=== PATIENT | female | born 1940 | race Caucasian/White ===

== ENCOUNTER 2017-01-22 21:13 | Emergency (ER) | payer OTHER, MEDICARE ==
[~2017-01-22] VITALS: Ht 165.1 cm; Wt 68.7 kg
[~2017-01-22 21:13] MED LIST: ASPEC81 PO; LEVO75TA PO; METO25TA56 PO; PARO30TA5 PO
[2017-01-22 21:20] VITALS: TEMP 36.7; Ht 165.1 cm; Wt 68.7 kg
[2017-01-22] MEDS ORDERED: ACETAMINOPHEN 500 MG TAB PO STA (21:53)
[2017-01-22] MEDS ORDERED: ASPI81TA28 PO (22:09)
[2017-01-22] MEDS ORDERED: ATEN50TA8 PO (22:13)
--- NOTE | 2017-01-22 22:41 | EMERGENCY ROOM VISIT NOTE ---
ED Visit Note First contact with patient: 22:41 This Patient was discussed with the physician pharmacy innovation assistant, NICA Clements. The pertinent historical and physical exam findings were confirmed. I agree with the studies ordered and with the interpretations of these studies. I agree with the disposition and care plan.
--- NOTE | 2017-01-22 22:49 | DIAGNOSTIC IMAGING REPORT ---
LEFT FOREARM 2 VIEWS ROUTINE CLINICAL HISTORY: Fall. COMPARISON: None FINDINGS: There is a mildly displaced distal left radial fracture with intra-articular extension. There is an age indeterminate avulsion fracture of the ulnar styloid. Alignment of the left elbow is anatomic. Evaluation of the left elbow is suboptimal on this exam. IMPRESSION: 1. Acute mildly displaced distal left radial fracture with intra-articular extension and mild dorsal tilt of the distal component. 2. Age indeterminate avulsion fracture of the ulnar styloid. Electronically signed by: Betito Rodriges M.D. 01/22/2017 10:48 PM Dictated Date/Time: 01/22/2017 10:45 PM
--- NOTE | 2017-01-22 22:50 | DIAGNOSTIC IMAGING REPORT ---
LEFT WRIST MIN 3 VIEWS ROUTINE CLINICAL HISTORY: Fall. COMPARISON: None FINDINGS: There is an acute mildly displaced distal left radial fracture with intra-articular extension. There is dorsal tilt of the distal component. There is an age indeterminate ulnar styloid avulsion fracture. 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 IMPRESSION: 1. Mildly displaced distal left radial fracture with intra-articular extension and dorsal tilt of the distal component. 2. Age indeterminate avulsion fracture of the ulnar styloid. Electronically signed by: Betito Rodriges M.D. 01/22/2017 10:49 PM Dictated Date/Time: 01/22/2017 10:48 PM
--- NOTE | 2017-01-22 23:04 | DIAGNOSTIC IMAGING REPORT ---
CT OF THE CERVICAL SPINE WITHOUT CONTRAST CLINICAL HISTORY: Fall. COMPARISON STUDY: No previous studies for comparison. TECHNIQUE: Helical axial images of the cervical spine were obtained without IV contrast. Sagittal and coronal reconstructions were viewed. FINDINGS: Craniocervical junction is intact. There is no acute fracture within the cervical spine. Moderate multilevel degenerative changes are present. There is no prevertebral edema. No pneumothorax is shown within visualized portions of the lung apices. IMPRESSION: No acute cervical spine fracture or subluxation. Electronically signed by: Betito Rodriges M.D. 01/22/2017 11:02 PM Dictated Date/Time: 01/22/2017 10:58 PM
--- NOTE | 2017-01-22 23:05 | DIAGNOSTIC IMAGING REPORT ---
CT OF THE HEAD WITHOUT CONTRAST CLINICAL HISTORY: Fall. COMPARISON STUDY: Head CT September 03, 2015. CT DOSE: 1008.19 mGy.cm TECHNIQUE: Helical axial images of the head were obtained without IV contrast. Automated exposure control was utilized for the study. FINDINGS: No acute intracranial hemorrhage, midline shift or mass effect is present. Ventricular system is stable. Basilar cisterns are patent. There are no extra-axial collections. 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 There is no calvarial fracture. Visualized portions of the sinuses and mastoid air cells are clear. IMPRESSION: 1. No acute intracranial findings. 2. No calvarial fracture. Electronically signed by: Betito Rodriges M.D. 01/22/2017 11:04 PM Dictated Date/Time: 01/22/2017 10:53 PM
[2017-01-22 23:37] VITALS: BP 178/83; PULSE 54; O2SAT 99
--- NOTE | 2017-01-23 03:42 | EMERGENCY ROOM VISIT NOTE ---
History First contact with patient: 21:47 Chief Complaint: WRIST PAIN Stated Complaint: FELL, HURT L WRIST History of Present Illness The patient is a 76 year old female who presents to the Emergency Room with complaints of Left wrist pain who [place] Patient states she tripped and fell landed on her knee and wrist. She does not think she her head but does have dementia. Patient has broken his wrist before. Patient denies chest pain, dyspnea, abdominal pain, neck pain, back pain or any other medical complaints. She follows at Dr. Thibodeaux. History is also obtained from the daughter who states patient does have dementia and is unsure of what happened today. She was not there. Review of Systems See HPI for pertinent positives & negatives. A total of 10 systems reviewed and were otherwise negative. Past Medical/Surgical History Medical Problems: (1) Cognitive impairment (2) Paroxysmal SVT (supraventricular tachycardia) (3) Progressive dementia with uncertain etiology Surgical Problems: (1) H/O partial thyroidectomy Family History FH: cancer FH: diabetes mellitus FH: heart disease Social History Smoking Status: Never Smoker Alcohol Use: occasionally Drug Use: none Marital Status: Housing Status: lives with family Occupation Status: retired Current/Historical Medications Scheduled Aspirin (Aspirin Ec), 81 MG PO Q2D Atenolol (Tenormin), 25 MG PO DAILY Levothyroxine Sodium (Synthroid), 75 MCG PO DAILY Paroxetine (Paroxetine HCl), 15 MG PO DAILY Allergies Coded Allergies: Codeine (Verified Allergy, Unknown, GI SYMPTOMS, 10/24/15) Mercury (Verified Allergy, Unknown, HIVES, 10/24/15) Physical Exam Vital Signs Date Time Temp Pulse Resp B/P Pulse Ox O2 Delivery O2 Flow Rate FiO2 01/22/17 23:37 54 18 178/83 99 01/22/17 21:20 36.7 61 20 141/94 97 Room Air Pain Rating (0-10): 3.0 Physical Exam PHYSICAL EXAM: VITALS: Vitals are noted on the nurse's note and reviewed by myself. Vital signs stable. GENERAL: Pleasant female forgot for repeating herself, in no acute distress, nondiaphoretic, well-developed well-nourished. SKIN: The skin was without obvious lacerations or abrasions. Capillary reflex less than 2 seconds. HEAD: Normocephalic atraumatic. EARS: External auditory canals clear, EYES: Pupils equal round and reactive to light and accommodation. Conjunctivae without injection, sclerae without icterus. Extraocular movements intact. NOSE: Patent, turbinates without inflammation or discharge MOUTH: Mucous membranes moist. Pharynx without erythema or exudate. Uvula midline. Airway patent. Tongue does not deviate. NECK: Supple without nuchal rigidity. Cervical spine is nontender. Full range of motion of the neck without tenderness. No JVD. HEART: Regular rate and rhythm LUNGS: Clear to auscultation bilaterally without wheezes, rales or rhonchi. No dullness to percussion. No retractions or accessory muscle use. No chest wall tenderness. ABDOMEN: Positive bowel sounds x 4. Normal tympanic percussion. Soft, nontender, without masses or organomegaly. No guarding or rebound tenderness. MUSCULOSKELETAL: No tenderness of the thoracic or lumbar spine. Left wrist deformed and tender to palpation, Full range of motion without tenderness to palpation in all other extremities. Normal gait. Radial pulse +2 equal present bilaterally NEURO: Patient was alert and oriented to person place Normal sensation to light and sharp touch. Cerebellar function intact. Medical Decision & Procedures Medications Administered Medications (Trade) Dose Ordered Sig/Dillon Route Start Time Stop Time Status Last Admin Dose Admin Acetaminophen (Tylenol Tab) 1,000 mg NOW STAT PO 01/22/17 21:53 01/22/17 21:57 DC 01/22/17 22:22 1,000 MG Procedure Splinting Indication: Radial fracture Verbal consent obtained. Risks and benefits were explained with the usual customary discussion. The injured extremity was identified. The patient was prepped and measured for the placement of a volar ortho-glass splint. Splint applied in the standard fashion over a layer of webril and secured using an elastic bandage. Set into a position of function. Normal neurovascular status after placement verified by me. The patient tolerated the procedure well and the care of the splint was discussed with the patient/family. No complications. ED Course Prior records/ancillary studies reviewed. Triage Nursing notes reviewed. Additional history obtained from family The patient's history was concerning for traumatic injury Differential diagnosis: Etiologies such as fracture, dislocation, intra-abdominal, pneumothorax, intrathoracic , intracranial, neurologic, as well as other traumatic pathologies were entertained. Physical examination findings: As above. The patients vitals were stable. ER treatment provided: Tylenol, patient was splinted as above On reassessment the patient felt better. Vital signs were stable. Diagnostic interpretation by me: Imaging studies: Head and cervical CT and negative for intracranial bleed or fracture per radiology Wrist and forearm x-ray concerning for radial fracture This appears to be consistent with all with wrist fracture. Patient was splinted as above. They're advised follow-up with the orthopedist, Dr. Adams, in a few days or here in the ER sooner for severe pain, numbness, tingling, worsening signs or symptoms or as needed. No other injuries are noted. Patient was well-appearing. She does have dementia. She is fully examined and no other injuries were appreciated. She did not have acute abdomen on exam. By the evaluation outlined above emergent etiologies such as dislocation, intra-abdominal, pneumothorax, pulmonary contusion, hemothorax, intracranial, neurologic,as well as others were deemed relatively unlikely. The pt informed about the findings as listed above. All questions were answered and pleased with the treatment. Return instructions were outlined and the patient was discharged in stable condition. Referral: The patient was referred to her ortho or follow-up in 2 to 3 days for a recheck of the current condition. case reviewed with my Attending Medical Decision As above Impression Primary Impression: Left wrist fracture Additional Impression: Fall Departure Information Dispostion Home / Self-Care Condition GOOD Forms WORK / SCHOOL INSTRUCTIONS, HOME CARE DOCUMENTATION FORM, IMPORTANT VISIT INFORMATION Patient Instructions Fx Wrist Tx, My [facility] Additional Instructions Ibuprofen(Motrin, Advil) may be used for fever or pain. Use 600mg every six hours as needed. Take with food. Avoid using more than 2400mg in a 24 hour period. Do not use 2400mg per day for more than three consecutive days without physician direction. Prolonged inappropriate use can lead to stomach upset or ulcers. This medication can be taken if you need to drive, work, or perform activities which may be dangerous when taking narcotic pain medication. (AND/OR) Acetaminophen(Tylenol) may be used for fever or pain. Use 1000mg every six hours as needed. Avoid using more than 3000mg in a 24 hour period. This medication can be taken if you need to drive, work, or perform activities which may be dangerous when taking narcotic pain medication. Ice compresses for 20 minutes at a time four times daily for 2-3 days. Use the sling as instructed. Remove your arm from the sling 4-6 times a day and move all the joints around to keep them loose. Rest and elevate your injury. Do not get the splint wet. If your splint feels excessively tight, you have worsening pain, develop numbness or tingling, or your digits appear blue, loosen the jacob wrap. Then reapply the jacob wrap gently without removing the splint. If your symptoms are not quickly relieved return to the ER for re- evaluation. Continue current medications. Return to the ER immediately for any numbness, tingling, severe pain, extreme swelling in the extremity or as needed. Call your Orthopedics tomorrow to arrange follow up for your injury. Problem Qualifiers Primary Impression: Left wrist fracture Encounter type: initial encounter Fracture type: closed Qualified Codes: S62.102A - Fracture of unspecified carpal bone, left wrist, initial encounter for closed fracture
== END 2017-01-22 23:43 | disposition home or self-care (01) ==
LOC: C.EDB 21:14 → C.EDD 23:43
DX: S62.102A Fracture of unspecified carpal bone, left wrist, initial encounter for closed fracture (principal); W18.09XA Striking against other object with subsequent fall, initial encounter; Y92.199 Unspecified place in other specified residential institution as the place of occurrence of the external cause; F03.90 Unspecified dementia, unspecified severity, without behavioral disturbance, psychotic disturbance, mood disturbance, and anxiety; E89.0 Postprocedural hypothyroidism; Z79.82 Long term (current) use of aspirin; Z79.899 Other long term (current) drug therapy

== ENCOUNTER → 2017-02-02 | Outpatient (CLI) | payer OTHER, MEDICARE ==
[~2017-02-02] MED LIST changes: -ASPEC81 PO; +ASPI81TA28 PO; +ATEN50TA8 PO; -METO25TA56 PO
--- NOTE | 2017-02-02 10:17 | DIAGNOSTIC IMAGING REPORT ---
LEFT WRIST MIN 3 VIEWS ROUTINE CLINICAL HISTORY: Left wrist FX trauma. Pain. COMPARISON: 01/22/2017 DISCUSSION: Somewhat progressive displacement of the distal radial fracture compared to the prior study. Examination remains negative for dislocation. Mildly increased distraction and dorsal angulation of the distal radial fracture. A small avulsion of the a left styloid is similar. Degenerative changes primarily at the first carpometacarpal joint are stable. IMPRESSION: Mildly progressive displacement and dorsal angulation of a fracture distal radius. Study remains negative for dislocation. No significant interval healing. Electronically signed by: Riaz Carrasquillo M.D. 02/02/2017 10:16 AM Dictated Date/Time: 02/02/2017 10:14 AM
== END | disposition home or self-care (01) ==
LOC: C.RDSM 10:05
PROVIDERS: ATTEND Physician Assistant
DX: S52.522D Torus fracture of lower end of left radius, subsequent encounter for fracture with routine healing (principal); X58.XXXD Exposure to other specified factors, subsequent encounter

== ENCOUNTER → 2017-02-06 | Day surgery (SDC) | payer OTHER, MEDICARE ==
[2017-02-02 15:39] VITALS: Ht 162.6 cm; Wt 61.4 kg
[~2017-02-06] VITALS: Ht 162.6 cm; Wt 61.4 kg
[~2017-02-06] MED LIST changes: +ATROPINE SULFATE 0.1 MG/ML 5ML SYR IV PRN; +CEFAZOLIN 2000 MG/60 ML D5W IV SCH; +DEXAMETHASONE SOD INJ 4 MG/ML VIAL ONE; +EpHEDrine SULFATE INJ 50 MG/ML AMP IV PRN; +FENTANYL CITRATE INJ 50 MCG/1 ML 2 ML VIAL ONE; +LACTATED RINGER'S 1000ML 1,000 ML IV SCH; +LIDOCAINE HCL 2% 2 ML VIAL (20MG/ML) ONE; +MIDAZOLAM HCL 1 MG/ML 2ML VIAL ONE; +ONDANSETRON INJ 2 MG/ML 2 ML VIAL IV PRN; +ONDANSETRON INJ 2 MG/ML 2 ML VIAL ONE; +PROPOFOL IV EMULSION 10 MG/ML 20 ML VIAL IV ONE; +SODIUM CHLORIDE 0.9% 1000ML 1,000 ML IV SCH; +TRAMADOL HCL 50 MG TAB PO PRN
--- NOTE | 2017-02-06 06:43 | History & Physical Bridge Note ---
H&P Re-Evaluation Bridge Note: I have examined the patient, reviewed the History & Physical and in the interval since the performance of the History & Physical I have noted the following changes of clinical significance: No changes noted
--- NOTE | 2017-02-06 06:45 | Discharge Instructions ---
Discharge Instructions Date of Service Feb 06, 2017. Visit Reason for Visit: Left Distal Radius Fracture Discharge Discharge Diagnosis / Problem: same Discharge Goals Goal(s): Improve function Medications Stopped Medications Name(s): na Restart Stopped Medication(s): use all scripts as directed Activity Recommendations Activity Limitations: as noted below Lifting Limitations: until after follow-up appointment Exercise/Sports Limitations: until after follow-up appointment May Resume Sexual Activity: after follow-up appointment Shower/Bathe: keep incision dry Driving or Machine Use: Anesthesia . Post Anesthesia Instructions: If you have had General Anesthesia or IV Sedation: * Do not drive today. * Resume driving when surgeon permits. * Do not make important decisions or sign legal documents today. * Call surgeon for: 1. Temperature elevations greater than 101 degrees F. 2. Uncontrollable pain. 3. Excessive bleeding. 4. Persistent nausea and vomiting. 5. Medication intolerance (nausea, vomiting or rash). * For nausea and vomiting use only clear liquids such as: tea, soda, bouillon until nausea subsides, then gradually increase diet as tolerated. * If you have any concerns or questions, call your surgeon's office. If physician is unavailable and it is an emergency, call 911 or go to the nearest emergency room. . Instructions / Follow-Up Instructions / Follow-Up DIET: * Resume previous diet. MEDICATIONS: * Please take your prescriptions as instructed at your pre-op appointment and/ or see medication discharge instructions listed above. * If concerns develop, call your physician's office at . SPECIAL CARE INSTRUCTIONS: * Ice/Elevate as instructed. * Keep dressing clean, dry, intact. * Your surgical extremity may be discolored due to prepping agents used on the skin. A bluish-green tint is a normal variant and should not cause alarm. Call your doctor at [phone] if: * Temperature above 101 degrees * Pain not relieved by pain medicine ordered * There is increased drainage or redness from any incision * You have any unanswered questions, problems or concerns. FOLLOW UP VISIT: * If not already scheduled, please call the office at to schedule a follow-up appointment. Diet Recommendations Recommended Home Diet: resume previous diet Procedures Procedures Performed: closed reduction and pinning Pending Studies Studies pending at discharge: no Medical Emergencies . Who to Call and When: Medical Emergencies: If at any time you feel your situation is an emergency, please call 911 immediately. . Non-Emergent Contact Non-Emergency issues call your: Specialist Call Non-Emergent contact if: temperature is above 101.5 . . "Provider Documentation" section prepared by Say Thibodeaux. .
--- NOTE | 2017-02-06 08:28 | [facility] Post Operative Brief Note ---
Immediate Operative Summary Operative Date Feb 06, 2017. Pre-Operative Diagnosis Left Distal Radius Fracture Post-Operative Diagnosis same Procedure(s) Performed Left Distal Radius Fracture Closed Reduction Percutaneous Pinning Surgeon Dr. Milad Thibodeaux Pegger Surgeon(s) Dr. Alma Newman, Isaac Nazario PA-C Estimated Blood Loss TRACE Findings displaced fx /old deformity Fluids (cc crystalloids) per anesthesia report Specimens none Drains none Anesthesia LMA Complication(s) None Disposition Recovery Room / PACU
[2017-02-06] MEDS: FENTANYL CITRATE INJ 50 MCG/1 ML 2 ML VIAL IV PRN ×5 (08:44→09:30)
--- NOTE | 2017-02-06 09:02 | OPERATIVE REPORT ---
DATE OF OPERATION: 02/06/2017 SURGEON: Say Thibodeaux MD DATA COLLECTION ASSOCIATE: Gena MAYNARD DATA COLLECTION ASSOCIATE: Isaac Nazario PA-C PREOPERATIVE DIAGNOSIS: Recurrent displaced fracture, distal radius, left upper extremity. POSTOPERATIVE DIAGNOSIS: Same. OPERATION PERFORMED: Closed reduction and percutaneous pinning. PERIOPERATIVE SITUATION: Medically cleared female with issues of senile dementia, who has injured her wrist now for the second time and had a previous fracture which was treated conservatively elsewhere with significant deformity, that has been again refractured; it was originally nondisplaced, but then started to displace and shorten and angulate, creating significant deformity to the wrist. It was elected to do minimal intervention, closed reduction and percutaneous pinning to try to prevent further deformity. This was discussed with family in detail. OPERATION: The patient was appropriately identified, site verified, consent verified, 2 grams of Ancef confirmed as being given. The left upper extremity was reduced to the best of our ability to get it into appropriate position and then percutaneously pinned with 0.062 K wires , two radially and one ulnarly. Good purchase was noted in both the proximal and distal fragments. X-rays reveal acceptable positioning. The clinical deformity of the wrist was markedly improved. The arm was then splinted appropriately and the patient transferred to the recovery room in satisfactory condition having tolerated the procedure well. Estimated blood loss trace. Crystalloid per anesthesia report. Complex scenario based on previous deformity and relatively poor compliance based on memory issues. We will follow carefully. I attest to the content of the Intraoperative Record and any orders documented therein. Any exceptions are noted below. MTDD
[2017-02-06 09:43] VITALS: TEMP 37
[2017-02-06 10:28] VITALS: BP 138/71; PULSE 78; O2SAT 95
--- NOTE | 2017-02-06 10:36 | Anesthesia Progress Nt - [facility] ---
Anesthesia Post Op Note Date & Time Feb 06, 2017 at 10:36 Vital Signs Pain Intensity: 3.0 Vital Signs Past 12 Hours Date Time Temp Pulse Resp B/P (MAP) Pulse Ox O2 Delivery O2 Flow Rate FiO2 02/06/17 10:28 78 20 138/71 (93) 95 Room Air 02/06/17 09:43 37.0 76 16 177/80 (112) 95 Room Air 02/06/17 09:35 61 13 02/06/17 09:35 61 13 98 02/06/17 09:31 166/81 (93) 02/06/17 09:30 60 11 96 02/06/17 09:30 60 11 02/06/17 09:26 159/74 (88) 02/06/17 09:25 59 17 96 02/06/17 09:25 58 17 02/06/17 09:21 164/74 (85) 02/06/17 09:20 58 10 02/06/17 09:20 59 10 97 02/06/17 09:19 37.2 59 7 02/06/17 09:19 59 7 96 02/06/17 09:16 161/81 (93) 02/06/17 09:14 60 12 02/06/17 09:14 60 12 97 02/06/17 09:11 157/79 (92) 02/06/17 09:09 59 10 100 02/06/17 09:09 59 10 02/06/17 09:06 166/88 (99) 02/06/17 09:05 Room Air 02/06/17 09:04 59 10 100 02/06/17 09:04 59 10 02/06/17 09:01 164/84 (97) 02/06/17 08:59 56 12 02/06/17 08:59 60 12 100 02/06/17 08:56 164/82 (100) 02/06/17 08:54 62 8 100 02/06/17 08:54 60 8 02/06/17 08:51 175/85 (100) 02/06/17 08:49 63 9 100 02/06/17 08:49 58 9 02/06/17 08:46 163/80 (100) 02/06/17 08:44 57 9 02/06/17 08:44 63 9 100 02/06/17 08:41 164/105 (125) 02/06/17 08:39 59 9 02/06/17 08:39 59 9 100 02/06/17 08:36 161/90 (107) 02/06/17 08:34 12 02/06/17 08:34 63 12 02/06/17 08:31 155/78 (91) 02/06/17 08:29 12 02/06/17 08:29 62 12 02/06/17 08:28 133/81 (90) 02/06/17 08:24 36.8 65 16 133/81 100 Diffusion Mask 5 02/06/17 06:50 36.8 64 16 125/76 (92) 100 Room Air Notes Mental Status: alert / awake / arousable, participated in evaluation Pt Amnestic to Procedure: Yes Nausea / Vomiting: adequately controlled Pain: adequately controlled Airway Patency, RR, SpO2: stable & adequate BP & HR: stable & adequate Hydration State: stable & adequate Anesthetic Complications: no major complications apparent
--- NOTE | 2017-02-06 17:05 | OPERATIVE REPORT ---
DATE OF OPERATION: 02/06/2017 PREOPERATIVE DIAGNOSIS: Left distal radius recurrent displaced fracture. POSTOPERATIVE DIAGNOSIS: Left distal radius same. PROCEDURE: Left radius closed reduction with percutaneous pinning. SURGEON: Dr. Thibodeaux. GRAVEL WHEELER: Dr. Avery. SECOND GRAVEL WHEELER: Isaac Nazario PA-C. HISTORY OF PRESENT ILLNESS: This 76-year-old white female presented to the office with complaints of a distal radius fracture that had been displaced. It was reduced. She does have senile dementia. She took her initial splint off and had the fracture displaced a second time. Because of this, it was recommended she be treated with percutaneous pinning. The family was in agreement. Informed written consent was obtained. Preoperative x-rays were obtained. DESCRIPTION OF PROCEDURE: The patient was taken to the operating room where she was given general anesthesia. She was prepped and draped in the usual sterile fashion. Please see Dr. Thibodeaux's operative report for specifics of the procedure. I was present for the entire case from initial patient positioning through final wound closure. Assistance was provided in patient positioning, and post-procedure splinting. The patient was taken to the recovery room in satisfactory condition. I attest to the content of the Intraoperative Record and any orders documented therein. Any exception s are noted below.
== END | disposition home or self-care (01) ==
LOC: X.SURG 06:38
PROVIDERS: ATTEND Physical Medicine & Rehabilitation Sports Medicine
DX: S52.502A Unspecified fracture of the lower end of left radius, initial encounter for closed fracture (principal); E89.0 Postprocedural hypothyroidism; Z90.89 Acquired absence of other organs; I10 Essential (primary) hypertension; I47.9 Paroxysmal tachycardia, unspecified; M85.80 Other specified disorders of bone density and structure, unspecified site; Z82.49 Family history of ischemic heart disease and other diseases of the circulatory system; Z79.82 Long term (current) use of aspirin; W18.39XA Other fall on same level, initial encounter; Y92.129 Unspecified place in nursing home as the place of occurrence of the external cause; G30.9 Alzheimer's disease, unspecified; F02.80 Dementia in other diseases classified elsewhere, unspecified severity, without behavioral disturbance, psychotic disturbance, mood disturbance, and anxiety; E03.9 Hypothyroidism, unspecified; M19.90 Unspecified osteoarthritis, unspecified site; Z86.73 Personal history of transient ischemic attack (TIA), and cerebral infarction without residual deficits

== ENCOUNTER → 2017-02-13 | Outpatient (CLI) | payer OTHER, MEDICARE ==
[~2017-02-13] MED LIST changes: -ATROPINE SULFATE 0.1 MG/ML 5ML SYR IV PRN; -CEFAZOLIN 2000 MG/60 ML D5W IV SCH; -DEXAMETHASONE SOD INJ 4 MG/ML VIAL ONE; -EpHEDrine SULFATE INJ 50 MG/ML AMP IV PRN; -FENTANYL CITRATE INJ 50 MCG/1 ML 2 ML VIAL ONE; -LACTATED RINGER'S 1000ML 1,000 ML IV SCH; -LIDOCAINE HCL 2% 2 ML VIAL (20MG/ML) ONE; -MIDAZOLAM HCL 1 MG/ML 2ML VIAL ONE; -ONDANSETRON INJ 2 MG/ML 2 ML VIAL IV PRN; -ONDANSETRON INJ 2 MG/ML 2 ML VIAL ONE; -PROPOFOL IV EMULSION 10 MG/ML 20 ML VIAL IV ONE; -SODIUM CHLORIDE 0.9% 1000ML 1,000 ML IV SCH; -TRAMADOL HCL 50 MG TAB PO PRN
--- NOTE | 2017-02-13 14:54 | DIAGNOSTIC IMAGING REPORT ---
LEFT WRIST 4 VIEWS CLINICAL HISTORY: Left wrist fracture. COMPARISON: 02/02/2017 DISCUSSION: The fine bony detail is secured by an overlying fiberglass cast. There is ulnar positive variance. No definite intra-articular fracture of the distal radius which has been fixated with 3 orthopedic wires. The distal fragment is dorsally displaced x 6 mm. The radial articular surface demonstrates a dorsal tilt of 14 degrees. IMPRESSION: Mildly angulated and displaced intra-articular fracture of the distal radius which has been fixated with 3 orthopedic wires. Electronically signed by: Wlid Cha M.D. 02/13/2017 2:52 PM Dictated Date/Time: 02/13/2017 2:49 PM
== END | disposition home or self-care (01) ==
LOC: C.RDSM 14:42
PROVIDERS: ATTEND Physician Assistant
DX: S52.572A Other intraarticular fracture of lower end of left radius, initial encounter for closed fracture (principal); X58.XXXA Exposure to other specified factors, initial encounter

== ENCOUNTER → 2017-02-19 | Outpatient (CLI) | payer OTHER, MEDICARE | END | disposition home or self-care (01) | LOC: C.RDSM 11:16 | PROVIDERS: ATTEND Physical Medicine & Rehabilitation Sports Medicine | DX: Z96.7 Presence of other bone and tendon implants (principal) ==

== ENCOUNTER → 2017-02-26 | Outpatient (CLI) | payer OTHER, MEDICARE ==
--- NOTE | 2017-02-26 16:22 | DIAGNOSTIC IMAGING REPORT ---
LEFT FOREARM 2 VIEWS CLINICAL HISTORY: 76 years-old Female presenting with LEFT FOREARM PAIN, history of left wrist fracture. TECHNIQUE: Frontal and lateral views of the left forearm were performed. COMPARISON: 01/22/2017 and 02/19/2017. FINDINGS: Fiberglass cast is in place over the left wrist. Three pin fixation of the distal radial metaphysis across the previously noted mildly displaced distal radial fracture. Intraarticular extension better demonstrated on prior radiographs of the wrist. The overlying cast limits evaluation of fracture planes. Allowing for this limitation, the fracture plane remains visible. There is 3 mm of dorsal displacement of the distal fracture fragment. Slight foreshortening and mild dorsal angulation of the distal fracture fragment again noted. No increased malalignment. Age-indeterminate, likely chronic, avulsed ulnar styloid fracture. The radiocarpal joint space appears intact. The elbow joint is congruent. IMPRESSION: 1. Grossly stable appearance of the mildly displaced distal left radial fracture with mild dorsal tilt of the distal fracture fragment. Electronically signed by: Roel Mccullough 02/26/2017 4:21 PM Dictated Date/Time: 02/26/2017 4:09 PM
== END | disposition home or self-care (01) ==
LOC: C.RDSM 16:00
PROVIDERS: ATTEND Physician Assistant
DX: M79.632 Pain in left forearm (principal); W19.XXXA Unspecified fall, initial encounter

== ENCOUNTER → 2017-03-16 | Outpatient (CLI) | payer OTHER, MEDICARE ==
--- NOTE | 2017-03-16 15:46 | DIAGNOSTIC IMAGING REPORT ---
LEFT WRIST 2 VIEWS CLINICAL HISTORY: Fracture. Status post post open reduction internal fixation. COMPARISON: Left forearm radiographs February 26, 2017. FINDINGS: The distal left radial pins have been removed since exam of February 26, 2017. A mildly displaced fracture through the distal metadiaphysis and metaphysis of the left radius with callus formation is noted. Callus formation is increased. There is mild dorsal tilt of the distal component. Fracture is displaced 5 mm. Alignment is similar to prior exam of February 26, 2017. As before, there is suspected positive ulnar variance. Calcific density projects over the TFCC. 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 IMPRESSION: No significant change in alignment of the healing distal left radial fracture following pin removal. Electronically signed by: Betito Rodriges M.D. 03/16/2017 3:45 PM Dictated Date/Time: 03/16/2017 3:42 PM
== END | disposition home or self-care (01) ==
LOC: C.RDSM 14:21
PROVIDERS: ATTEND Physician Assistant
DX: Z96.7 Presence of other bone and tendon implants (principal); S52.502D Unspecified fracture of the lower end of left radius, subsequent encounter for closed fracture with routine healing; X58.XXXD Exposure to other specified factors, subsequent encounter

== ENCOUNTER → 2017-04-06 | Outpatient (CLI) | payer OTHER, MEDICARE ==
--- NOTE | 2017-04-06 14:12 | DIAGNOSTIC IMAGING REPORT ---
LEFT WRIST MIN 3 VIEWS ROUTINE CLINICAL HISTORY: LEFT WRIST FX trauma. Pain. COMPARISON: 02/19/2017 DISCUSSION: Interval removal of fixating pins. Healing fracture of the distal radius is again noted. Small old avulsion of the a left styloid is present. Mild residual dorsal angulation. Alignment otherwise is grossly anatomic. Degenerative changes described previously is again present. There is no evidence for soft tissue swelling. IMPRESSION: Healing fracture distal radius showing persistent mild dorsal angulation. The above report was generated using voice recognition software. It may contain grammatical, syntax or spelling errors. Electronically signed by: Riaz Carrasquillo M.D. 04/06/2017 2:11 PM Dictated Date/Time: 04/06/2017 2:10 PM
== END | disposition home or self-care (01) ==
LOC: C.RDSM 12:49
PROVIDERS: ATTEND Physician Assistant
DX: S52.509A Unspecified fracture of the lower end of unspecified radius, initial encounter for closed fracture (principal); X58.XXXA Exposure to other specified factors, initial encounter

== ENCOUNTER → 2017-10-16 | Outpatient (CLI) | payer OTHER, MEDICARE ==
--- NOTE | 2017-10-17 08:03 | MAMMOGRAPHY REPORT ---
BILATERAL DIGITAL SCREENING MAMMOGRAM TOMOSYNTHESIS WITH CAD: 10/16/2017 CLINICAL HISTORY: Routine screening. Patient has no complaints. TECHNIQUE: Breast tomosynthesis in addition to standard 2D mammography was performed. Current study was also evaluated with a Computer Aided Detection (CAD) system. COMPARISON: Comparison is made to exam dated: 01/13/2016 mammogram - [facility], pr ior outside mammograms dated 10/05/2008, 10/06/2009, 12/14/2010, 02/06/2012, 03/26/2013, 03/27/2014, 04/07/2015. BREAST COMPOSITION: The tissue of both breasts is heterogeneously dense, which may obscure small mas ses. FINDINGS: There are stable groupings of punctate macro calcifications in the lateral left breast. A few scattered benign coarse Indications and mild vascular calcification in the breasts. No suspiciou s mass, architectural distortion or cluster of microcalcifications is seen. IMPRESSION: ACR BI-RADS CATEGORY 1: NEGATIVE There is no mammographic evidence of malignancy. A 1 year screening mammogram is recommended. The pa tient will receive written notification of the results. Approximately 10% of breast cancers are not detected with mammography. A negative mammographic report should not delay biopsy if a clinically suggestive mass is present. Angelia Leach M.D. ay/:10/16/2017 16:36:45 Director Of Sales And Marketing: Vianey Ross, [facility] letter sent: Normal 1/2 BI-RADS Code: ACR BI-RADS Category 1: Negative
== END | disposition home or self-care (01) ==
LOC: C.MAMM 10:44
PROVIDERS: ATTEND Family Medicine
DX: Z12.31 Encounter for screening mammogram for malignant neoplasm of breast (principal); M85.88 Other specified disorders of bone density and structure, other site; M81.0 Age-related osteoporosis without current pathological fracture

== ENCOUNTER 2018-01-13 13:15 | Emergency (ER) | payer OTHER, MEDICARE ==
[~2018-01-13] VITALS: Ht 162.6 cm; Wt 70.9 kg
[2018-01-13 13:24] VITALS: TEMP 36.7; Ht 162.6 cm; Wt 70.9 kg
--- NOTE | 2018-01-13 13:41 | EMERGENCY ROOM VISIT NOTE ---
History Report prepared by Susana: Efrain Hoffman Under the Supervision of: Dr. Roberto Bee M.D. First contact with patient: 13:28 Chief Complaint: BACK PAIN Stated Complaint: PAIN IN LOWER BACK History of Present Illness The patient is a 77 year old female with a history of cognitive impairment who presents to the Emergency Room ambulatory to triage with complaints of worsening lower back pain that started 5 days ago. She states that she did move large ceramic pots 6 days ago which may have caused the pain. The patient notes it hurts to do anything, including walking or sitting. Per the patient's daughter who is a physical therapist, the patient has no leg pain, bowel or bladder issues, or numbness or tingling. The patient has been noted to be eating fine. The patient takes a baby Aspirin daily but no other blood thinners. She takes the Aspirin daily due to a history of a couple TIA's. The patient denies any neck pain, fevers, chills, cough, congestion, or abdominal pain. The patient's daughter adds that the patient was complaining of left hip pain 2 days ago, but the patient does not recall complaining of that. There is a noted bruise on the patient's back. The patient notes no history of bleeding problems in her stomach. Source of History: patient, family Onset: 5 days ago Position: back (lower) Symptom Intensity: only has the back pain, but hurts to walk or even sit Quality: other (pain) Timing: worsening Associated Symptoms: No fevers, No chills, No cough (or congestion), No neck pain, No abdominal pain, No diarrhea, No urinary symptoms (or bowel movement issues), No numbness (or tingling) Note: Associated symptoms: Bruise on back. Review of Systems See HPI for pertinent positives and negatives. A total of ten systems were reviewed and were otherwise negative. Past Medical & Surgical Medical Problems: (1) Cognitive impairment (2) Paroxysmal SVT (supraventricular tachycardia) (3) Progressive dementia with uncertain etiology Surgical Problems: (1) H/O partial thyroidectomy Family History FH: cancer FH: diabetes mellitus FH: heart disease Social History Smoking Status: Never Smoker Alcohol Use: occasionally Drug Use: none Marital Status: Housing Status: lives with family Occupation Status: retired Current/Historical Medications Scheduled Aspirin (Aspirin Ec), 81 MG PO Q2D Atenolol (Tenormin), 25 MG PO QAM Levothyroxine Sodium (Synthroid), 75 MCG PO QAM Paroxetine (Paroxetine HCl), 15 MG PO HS Scheduled PRN Lidocaine (Lidocaine), 1 PATCH TD DAILY PRN for Pain Allergies Coded Allergies: Codeine (Verified Allergy, Unknown, GI SYMPTOMS, 01/13/18) Mercury (Verified Allergy, Unknown, HIVES, 01/13/18) Physical Exam Vital Signs Date Time Temp Pulse Resp B/P (MAP) Pulse Ox O2 Delivery O2 Flow Rate FiO2 01/13/18 17:14 57 18 159/87 97 01/13/18 15:17 55 18 144/83 98 01/13/18 13:24 36.7 61 18 130/60 97 Room Air Physical Exam GENERAL: Awake, alert, uncomfortable-appearing, in no distress HENT: Normocephalic, atraumatic. Dry mucous membranes. EYES: Normal conjunctiva. Sclera non-icteric. NECK: Supple. No nuchal rigidity. FROM. No JVD. RESPIRATORY: Clear to auscultation. CARDIAC: Regular rate, normal rhythm. Extremities warm and well perfused. Pulses equal. ABDOMEN: Soft, non-distended. No tenderness to palpation. No rebound or guarding. No masses. RECTAL: Deferred. MUSCULOSKELETAL: Chest examination reveals no tenderness. Midline tenderness upper L-spine. Negative straight leg raise. No pain with range of motion of bilateral hips. She has slight right posterior hip tenderness. No joint edema. LOWER EXTREMITIES: Calves are equal size bilaterally and non-tender. No edema. No discoloration. NEURO: Normal sensorium. No sensory or motor deficits noted. SKIN: No rash or jaundice noted. Medical Decision & Procedures ER Provider Diagnostic Interpretation: Radiology results as stated below per my review and radiologist interpretation: CT LUMBAR SPINE WITHOUT CT DOSE: 674.47 mGy.cm CLINICAL HISTORY: Low back pain status post trauma TECHNIQUE: Helical images were acquired in transverse plane. Reformatted sagittal and coronal images were reviewed. A dose lowering technique was utilized adhering to the principles of ALARA. CONTRAST: No contrast was administered COMPARISON STUDY: None. FINDINGS: There is a punctate nonobstructing right renal calculus. 9L1-2 level: There is no evidence of significant disc bulge or focal herniation. There is no evidence of spinal or foraminal stenosis. L2-3 level: There are marked degenerative changes present. There is disc space narrowing, endplate sclerosis, and endplate erosive change. There is a circumferential disc bulge. There is mild spinal stenosis. There is no significant foraminal narrowing. L3-4 level: There is a circumferential disc bulge. There is mild to moderate spinal stenosis. There is no significant foraminal narrowing. L4-5 level: There is a grade 1 spondylolisthesis of L4 on L5. There is facet joint arthropathy. There is asymmetric left-sided ligamentous hypertrophy. There is mild to moderate spinal stenosis. There is minor bilateral subforaminal narrowing L5-S1 level: There is no evidence of significant disc bulge or focal herniation. There is no evidence of spinal or foraminal stenosis. There is acute/subacute superior endplate L1 compression fracture demonstrating 40% loss in height. IMPRESSION: 1. Mild to moderate acute/subacute superior endplate L1 compression fracture 2. Multilevel spondylitic change. Mild spinal stenosis the L2-3 level, mild to moderate spinal stenosis at the L3-4, and L4-5 levels. 3. Punctate nonobstructing right renal calculus Electronically signed by: Wild Cha M.D. 01/13/2018 2:33 PM Dictated Date/Time: 01/13/2018 2:28 PM Pelvis and bilateral hips 5 views CLINICAL HISTORY: Pain status post trauma COMPARISON STUDY: None FINDINGS: Degenerative changes are present within the lower lumbar spine. There is no evidence of SI joint diastases. There is no evidence of symphysis diastases. There are no fractures of either proximal femur. There is no dislocation. There is a fracture involving the posterior lip of the right acetabulum versus an os acetabulum. Please correlate with the patient's site of pain. IMPRESSION: 1. Right os acetabulum versus fracture of the posterior lip of the right acetabulum. Please correlate with the patient's site of pain 2. No proximal femoral fractures identified. Electronically signed by: Wild Cha M.D. 01/13/2018 2:46 PM Dictated Date/Time: 01/13/2018 2:[address] DOSE: 825.38 mGy.cm HISTORY: b/l hip pain, eval ?R acetabular fx TECHNIQUE: Multiaxial CT images of the pelvis were performed and reformatted in the sagittal and coronal plane without the use of contrast. A dose lowering technique was utilized adhering to the principles of ALARA. COMPARISON: Pelvis 01/13/2018. FINDINGS: Tiny lucency through the posterior lip of the right acetabulum. This may represent an age-indeterminate fracture versus chronic osteophyte. Otherwise, no acute fracture or dislocation within the pelvis or hips. The visualized sacrum is intact. There is a 6.4 cm right adnexal cystic lesion. The bladder is unremarkable. No evidence for pelvic hematoma. IMPRESSION: 1. Tiny lucency through the posterior lip of the right acetabulum. This may represent an age-indeterminate fracture versus chronic osteophyte. 2. A 6.4 cm right adnexal cystic lesion. Follow-up nonemergent pelvic ultrasound is recommended. This is considered to be pathologic in a postmenopausal female. Electronically signed by: Karlos Gonzalez M.D. 01/13/2018 4:27 PM Dictated Date/Time: 01/13/2018 4:11 PM Laboratory Results 01/13/18 15:30 Red Blood Count 4.57, Mean Corpuscular Volume 89.9, Mean Corpuscular Hemoglobin 30.4, Mean Corpuscular Hemoglobin Concent 33.8, Mean Platelet Volume 9.5, Neutrophils (%) (Auto) 64.7, Lymphocytes (%) (Auto) 22.1, Monocytes (%) (Auto) 11.1, Eosinophils (%) (Auto) 1.1, Basophils (%) (Auto) 0.7, Neutrophils # (Auto ) 4.73, Lymphocytes # (Auto) 1.61, Monocytes # (Auto) 0.81, Eosinophils # (Auto ) 0.08, Basophils # (Auto) 0.05 01/13/18 15:30 Test 01/13/18 15:30 01/13/18 16:30 White Blood Count 7.30 K/uL (4.8-10.8) Red Blood Count 4.57 M/uL (4.2-5.4) Hemoglobin 13.9 g/dL (12.0-16.0) Hematocrit 41.1 % (37-47) Mean Corpuscular Volume 89.9 fL (80-100) Mean Corpuscular Hemoglobin 30.4 pg (25-34) Mean Corpuscular Hemoglobin Concent 33.8 g/dl (32-36) Platelet Count 267 K/uL (130-400) Mean Platelet Volume 9.5 fL (7.4-10.4) Neutrophils (%) (Auto) 64.7 % Lymphocytes (%) (Auto) 22.1 % Monocytes (%) (Auto) 11.1 % Eosinophils (%) (Auto) 1.1 % Basophils (%) (Auto) 0.7 % Neutrophils # (Auto) 4.73 K/uL (1.4-6.5) Lymphocytes # (Auto) 1.61 K/uL (1.2-3.4) Monocytes # (Auto) 0.81 K/uL (0.11-0.59) Eosinophils # (Auto) 0.08 K/uL (0-0.5) Basophils # (Auto) 0.05 K/uL (0-0.2) RDW Standard Deviation 45.6 fL (36.4-46.3) RDW Coefficient of Variation 13.8 % (11.5-14.5) Immature Granulocyte % (Auto) 0.3 % Immature Granulocyte # (Auto) 0.02 K/uL (0.00-0.02) Anion Gap 7.0 mmol/L (3-11) Est Creatinine Clear Calc Drug Dose 39.5 ml/min Estimated GFR () 52.4 Estimated GFR (Non- 45.2 BUN/Creatinine Ratio 14.4 (10-20) Calcium Level 8.6 mg/dl (8.5-10.1) Urine Color YELLOW Urine Appearance CLEAR (CLEAR) Urine pH 6.5 (4.5-7.5) Urine Specific Agenda 1.014 (1.000-1.030) Urine Protein NEG (NEG) Urine Glucose (UA) NEG (NEG) Urine Ketones NEG (NEG) Urine Occult Blood NEG (NEG) Urine Nitrite NEG (NEG) Urine Bilirubin NEG (NEG) Urine Urobilinogen NEG (NEG) Urine Leukocyte Esterase TRACE (NEG) Urine WBC (Auto) 1-5 /hpf (0-5) Urine RBC (Auto) 0-4 /hpf (0-4) Urine Hyaline Casts (Auto) 0 /lpf (0-5) Urine Epithelial Cells (Auto) 0-5 /lpf (0-5) Urine Bacteria (Auto) NEG (NEG) Laboratory results reviewed by me Medications Administered Medications (Trade) Dose Ordered Sig/Dillon Route Start Time Stop Time Status Last Admin Dose Admin Acetaminophen (Tylenol Tab) 1,000 mg NOW STAT PO 01/13/18 13:43 01/13/18 13:47 DC 01/13/18 14:22 1,000 MG Ibuprofen (Motrin Tab) 800 mg NOW STAT PO 01/13/18 13:43 01/13/18 13:47 DC 01/13/18 14:21 800 MG Lidocaine (Lidoderm Patch 5%) 1 patch NOW STAT TD 01/13/18 13:43 01/13/18 13:47 DC 01/13/18 14:22 1 PATCH Dexamethasone (Decadron Conc Soln) 10 mg 1430 ONCE PO 01/13/18 14:30 01/13/18 14:31 DC 01/13/18 15:19 10 MG Sodium Chloride 500 ml @ 999 mls/hr Q31M STAT IV 01/13/18 15:08 01/13/18 15:38 DC 01/13/18 15:33 999 MLS/HR ED Course 1331: The patient was evaluated in room C11B. A complete history and physical exam was performed. 1701: I reevaluated the patient and she is resting comfortably. Discussed results and discharge instructions: she verbalized understanding and agreement. The patient is ready for discharge. Medical Decision I reviewed the patient's past medical history, medications, and the nursing notes as described above. Differential diagnosis: Etiologies such as musculoskeletal, disc herniation, fracture, aortic disease, metastatic disease, cord compression, discitis, infection, renal colic, gastrointestinal, acute exacerbation of chronic back pain, sciatica, cauda equina, as well as others were entertained. The patient is a 77 y/o woman with a pmhx of Alzheimer's dementia who presents to the emergency department with lower back pain for he past 4 days after picking up pots per HPI. Denies urinary retention or bowel incontinence. Of note , daughter at the bedside also comments that due to the patient's Alzheimer's dementia it is possible that she may have fallen and doesn't remember. On arrival the patient is uncomfortable but in NAD, AFVSS. On exam the patient has mild upper Lspine Midline ttp. No step-offs. 5/5 strength and SILT BLE. Negative straight leg raise. FROM b/l hips without pain. Mild pain to posterior aspect of right hip on re-evaluation but not initially. Daughter reports that patient previously c/o hip pain and so plain films performed. Equivocal findings of right acetabulum and so CT pelvis performed and minor defect is age indeterminate vs osteophyte. Given the patient has been ambulating without difficulty for 4 days, unlikely to be acute fx. Otherwise CT Lspine demonstrates L1 compression fx with 40% loss of height. No involvement of posterior elements. Incidental renal stone without obstruction. Labs unremarkable including wbc wnl. UA negative. Patient feeling improved after APAP , IB, Dexamethasone, and Lidoderm patch. Plan for ortho f/u. Incidental adnexal cyst also explained. Findings and plan for follow-up reviewed with patient. Patient agreeable and d/c'd per discharge instructions. Medication Reconcilliation Current Medication List: was personally reviewed by me Blood Pressure Screening Patient's blood pressure: Normal blood pressure Impression Primary Impression: Lumbar compression fracture Additional Impressions: Spinal stenosis of lumbar region at multiple levels Renal calculus, right Adnexal cyst Scribe Attestation The scribe's documentation has been prepared under my direction and personally reviewed by me in its entirety. I confirm that the note above accurately reflects all work, treatment, procedures, and medical decision making performed by me. Departure Information Dispostion Home / Self-Care Prescriptions Lidocaine (Lidocaine) 1 Patch Tdsy 1 PATCH TD DAILY Y for Pain, #10 PATCH Prov: Roberto Bee M.D. 01/13/18 Referrals Coni De La Fuente D.O. (PCP) Umang Espinosa, DO Patient Instructions ED Fx Comp Vertebral, ED Stone Kidney Undescended No Sx, My [facility] Additional Instructions Please follow up with our orthopedic-retirement plan specialist, Dr. Espinosa, for reevaluation of your imaging of your hip and spine including your lumbar compression fracture and possible old acetabulum fracture. You should also follow-up with your primary care physician within the next week to discuss your incidental pelvic cystic lesion to obtain a pelvic ultrasound for further characterization. You were found to have a lumbar compression fracture as well as possible old injury to your right hip. Otherwise, your exam, lab results. and CT scan did not show signs of an emergent condition at this time. Acetaminophen or ibuprofen for pain and fevers as needed. Lidoderm patch for additional pain relief. Return to the emergency department for worsening symptoms as described in the accompanying instructions. Problem Qualifiers
[2018-01-13] MEDS ORDERED: DEXAMETHASONE 5 MG/5 ML UDP PO STA (13:43)
[2018-01-13] MEDS ORDERED: LIDODERM (LIDOCAINE) PATCH 5% TD STA (13:43)
[2018-01-13] MEDS ORDERED: IBUPROFEN 800 MG TAB PO STA (13:43)
[2018-01-13] MEDS ORDERED: ACETAMINOPHEN 500 MG TAB PO STA (13:43)
[2018-01-13] MEDS ORDERED: DEXAMETHASONE CONC 1 MG/ML 30 ML PO ONE (14:30)
--- NOTE | 2018-01-13 14:35 | DIAGNOSTIC IMAGING REPORT ---
CT LUMBAR SPINE WITHOUT CT DOSE: 674.47 mGy.cm CLINICAL HISTORY: Low back pain status post trauma TECHNIQUE: Helical images were acquired in transverse plane. Reformatted sagittal and coronal images were reviewed. A dose lowering technique was utilized adhering to the principles of ALARA. CONTRAST: No contrast was administered COMPARISON STUDY: None. FINDINGS: There is a punctate nonobstructing right renal calculus. 9L1-2 level: There is no evidence of significant disc bulge or focal herniation. There is no evidence of spinal or foraminal stenosis. L2-3 level: There are marked degenerative changes present. There is disc space narrowing, endplate sclerosis, and endplate erosive change. There is a circumferential disc bulge. There is mild spinal stenosis. There is no significant foraminal narrowing. L3-4 level: There is a circumferential disc bulge. There is mild to moderate spinal stenosis. There is no significant foraminal narrowing. L4-5 level: There is a grade 1 spondylolisthesis of L4 on L5. There is facet joint arthropathy. There is asymmetric left-sided ligamentous hypertrophy. There is mild to moderate spinal stenosis. There is minor bilateral subforaminal narrowing L5-S1 level: There is no evidence of significant disc bulge or focal herniation. There is no evidence of spinal or foraminal stenosis. There is acute/subacute superior endplate L1 compression fracture demonstrating 40% loss in height. IMPRESSION: 1. Mild to moderate acute/subacute superior endplate L1 compression fracture 2. Multilevel spondylitic change. Mild spinal stenosis the L2-3 level, mild to moderate spinal stenosis at the L3-4, and L4-5 levels. 3. Punctate nonobstructing right renal calculus Electronically signed by: Wild Cha M.D. 01/13/2018 2:33 PM Dictated Date/Time: 01/13/2018 2:28 PM
--- NOTE | 2018-01-13 14:47 | DIAGNOSTIC IMAGING REPORT ---
Pelvis and bilateral hips 5 views CLINICAL HISTORY: Pain status post trauma COMPARISON STUDY: None FINDINGS: Degenerative changes are present within the lower lumbar spine. There is no evidence of SI joint diastases. There is no evidence of symphysis diastases. There are no fractures of either proximal femur. There is no dislocation. There is a fracture involving the posterior lip of the right acetabulum versus an os acetabulum. Please correlate with the patient's site of pain. IMPRESSION: 1. Right os acetabulum versus fracture of the posterior lip of the right acetabulum. Please correlate with the patient's site of pain 2. No proximal femoral fractures identified. Electronically signed by: Wild Cha M.D. 01/13/2018 2:46 PM Dictated Date/Time: 01/13/2018 2:43 PM
[2018-01-13] MEDS ORDERED: SODIUM CHLORIDE 0.9% 500ML 500 ML IV STA (15:08)
[2018-01-13 15:39] LABS: BASO % 0.7 %; BASO ABS # 0.05 K/uL (0-0.2); EOS % 1.1 %; EOS ABS # 0.08 K/uL (0-0.5); HEMATOCRIT 41.1 % (37-47); HEMOGLOBIN 13.9 g/dL (12.0-16.0); IG# 0.02 K/uL (0.00-0.02); LYMPH % 22.1 %; LYMPH ABS # 1.61 K/uL (1.2-3.4); MEAN CELL VOLUME 89.9 fL (80-100); MEAN CORPUSCULAR HEMOGLOBIN 30.4 pg (25-34); MEAN CORPUSCULAR HGB CONC 33.8 g/dl (32-36); MEAN PLATELET VOLUME 9.5 fL (7.4-10.4); MONO % 11.1 %; MONO ABS # 0.81 K/uL (0.11-0.59); NEUT % 64.7 %; NEUT ABS # 4.73 K/uL (1.4-6.5); PLATELET COUNT 267 K/uL (130-400); RED CELL DISTRIBUTION WIDTH CV 13.8 % (11.5-14.5); RED CELL DISTRIBUTION WIDTH SD 45.6 fL (36.4-46.3)
[2018-01-13 15:59] LABS: CALCIUM 8.6 mg/dl (8.5-10.1); CREATININE 1.17 mg/dl (0.60-1.20)
--- NOTE | 2018-01-13 16:28 | DIAGNOSTIC IMAGING REPORT ---
PELVIS CT CT DOSE: 825.38 mGy.cm HISTORY: b/l hip pain, eval ?R acetabular fx TECHNIQUE: Multiaxial CT images of the pelvis were performed and reformatted in the sagittal and coronal plane without the use of contrast. A dose lowering technique was utilized adhering to the principles of ALARA. COMPARISON: Pelvis 01/13/2018. FINDINGS: Tiny lucency through the posterior lip of the right acetabulum. This may represent an age-indeterminate fracture versus chronic osteophyte. Otherwise, no acute fracture or dislocation within the pelvis or hips. The visualized sacrum is intact. There is a 6.4 cm right adnexal cystic lesion. The bladder is unremarkable. No evidence for pelvic hematoma. IMPRESSION: 1. Tiny lucency through the posterior lip of the right acetabulum. This may represent an age-indeterminate fracture versus chronic osteophyte. 2. A 6.4 cm right adnexal cystic lesion. Follow-up nonemergent pelvic ultrasound is recommended. This is considered to be pathologic in a postmenopausal female. Electronically signed by: Karlos Gonzalez M.D. 01/13/2018 4:27 PM Dictated Date/Time: 01/13/2018 4:11 PM
[2018-01-13] MEDS ORDERED: LDDP5 TD (16:48)
[2018-01-13 17:14] VITALS: BP 159/87; PULSE 57; O2SAT 97
== END 2018-01-13 17:07 | disposition home or self-care (01) ==
LOC: C.EDB 13:16 → C.EDC 17:07
DX: S32.010A Wedge compression fracture of first lumbar vertebra, initial encounter for closed fracture (principal); X58.XXXA Exposure to other specified factors, initial encounter; M48.061 Spinal stenosis, lumbar region without neurogenic claudication; N20.0 Calculus of kidney; N83.8 Other noninflammatory disorders of ovary, fallopian tube and broad ligament; S30.0XXA Contusion of lower back and pelvis, initial encounter; I47.1 Supraventricular tachycardia; F03.90 Unspecified dementia, unspecified severity, without behavioral disturbance, psychotic disturbance, mood disturbance, and anxiety; Z79.82 Long term (current) use of aspirin; Z86.73 Personal history of transient ischemic attack (TIA), and cerebral infarction without residual deficits; Z79.899 Other long term (current) drug therapy; Z88.5 Allergy status to narcotic agent; Z88.8 Allergy status to other drugs, medicaments and biological substances

== ENCOUNTER → 2018-01-15 | Outpatient (CLI) | payer OTHER, MEDICARE ==
[~2018-01-15] MED LIST changes: +LDDP5 TD
--- NOTE | 2018-01-15 16:03 | DIAGNOSTIC IMAGING REPORT ---
PELVIC COMPLETE NON OB CLINICAL HISTORY: 77 years-old Female presenting with ADNEXAL CYST, no abnormal bleeding. TECHNIQUE: Real-time grayscale and color and spectral Doppler ultrasound imaging of the pelvis was performed first using a transabdominal probe and subsequently transvaginal for better characterization. COMPARISON: CT from 01/13/2018. FINDINGS: Uterus: Normal. Anteverted. The uterus measures 5.1 x 2.5 x 3.5 cm. Endometrial stripe measures 9 mm in thickness. Endometrium heterogeneous appearing. Cervix normal. Right adnexa: Right ovary enlarged by a dominant lesion. Right ovary overall measures 6.6 x 6.2 x 6.7 cm. The right ovarian lesion is primarily anechoic with internal debris. The lesion measures 6.0 x 5.8 x 6.3 cm. There is also a mural nodule without demonstrable internal color Doppler flow. The mural nodule measures 1.9 x 0.7 x 1.5 cm. Normal color Doppler flow and arterial and venous waveforms within the ovarian parenchyma. Left adnexa: Left ovary is poorly visualized but grossly normal. Left ovary measures 1.5 x 0.8 x 1.3 cm. Normal color Doppler flow and arterial and venous waveforms within the ovarian parenchyma. Other: No free fluid. IMPRESSION: 1. Right adnexal lesion is likely right ovarian in origin and measures 6.3 cm. Lesion is primarily cystic though a mural nodule makes this lesion suspicious for malignancy or a borderline ovarian lesion. Gynecologic consultation is advised. 2. Additionally, heterogeneous thickening of the endometrium is unexpected in a postmenopausal patient despite absence of postmenopausal uterine bleeding. Gynecologic consultation for possible endometrial biopsy is recommended to endometrial neoplasm. The report will be called/faxed according to standard departmental protocol. Electronically signed by: Roel Mccullough M.D. 01/15/2018 4:02 PM Dictated Date/Time: 01/15/2018 3:56 PM
== END | disposition home or self-care (01) ==
LOC: C.ULTR 14:28
PROVIDERS: ATTEND Family Medicine
DX: N94.9 Unspecified condition associated with female genital organs and menstrual cycle (principal)

== ENCOUNTER 2020-01-13 18:15 | Observation (INO) ==
[2020-01-13] MEDS ORDERED: SODIUM CHLORIDE 0.9% 1000ML 1,000 ML IV SCH (18:45)
--- NOTE | 2020-01-13 19:04 | Emergency Department Note ---
ED Visit Note I assisted Dr. Bee in the care of this patient. Please see attending attestation. Salomon Tirado DO Resident, Family & Community Medicine, [facility] . Resident Activity Tracking Resident Involvement: Resident Care Provided Care Provided: Adult ED
--- NOTE | 2020-01-13 20:03 | XRay Report ---
XR lumbar spine 2-3V HISTORY: 79 years-old Female 2v. r/o fx acute low back pain status post fall COMPARISON: MRI lumbar spine 04/24/2019 TECHNIQUE: 3 views of the lumbar spine FINDINGS: Convex right curvature of the mid lumbar spine. Hypoplastic ribs at T12. Demineralized appearance of the bones. Unchanged remote L1 compression deformity. Unchanged 1 anterolisthesis L4 on L5, likely se condary to long-standing facet arthrosis. Severe multilevel facet arthropathy. Multilevel disc space narrowing, severe at L2-L3. Fracture involving the upper sacrum with 1.2 cm anterolisthesis S1 on S2 is new from prior. 20% anterior endplate compression deformity involves the T10 vertebral body which is chronic. Soft tissues are unremarkable. Calcified plaque of the thoracic aorta. IMPRESSION: 1. Age-indeterminate fracture of the upper sacrum is noted with 1.2 cm anterolisthesis S1 on S2, new from 04/24/2019. This is suspicious for an acute or subacute fracture. 2. Remote T10 and L1 compression deformities. 3. Multilevel degenerative changes as above. ACT 112: Negative or not required by law. The above report was generated using voice recognition software. It may contain grammatical, syntax o r spelling errors. Electronically signed by: Akira Parker M.D. 01/13/2020 8:02 PM
--- NOTE | 2020-01-13 20:06 | XRay Report ---
XR pelvis 1-2V routine, XR coccyx 2V HISTORY: 79 years-old Female 2v . r/o fx acute pelvic and coccygeal pain COMPARISON: Lumbar spine radiographs of same day, MRI lumbar spine 04/24/2019 TECHNIQUE: AP view the pelvis with 3 views of the coccyx FINDINGS: PELVIS: No definite acute fracture or subluxation identified on this single AP view of the pelvis. Moderate o steoarthritis of the hips. Soft tissues are unremarkable. COCCYX: Age-indeterminate fracture of the upper sacrum which appears to be at the S2 level. There is equivoca l disruption of the right-sided sacral arcuate lines. The coccyx appears intact. IMPRESSION: 1. No acute pelvic ring fracture identified. 2. Suspected acute versus subacute upper sacral fracture. ACT 112: Negative or not required by law. The above report was generated using voice recognition software. It may contain grammatical, syntax o r spelling errors. Electronically signed by: Akira Parker M.D. 01/13/2020 8:04 PM
[2020-01-13] MEDS ORDERED: DEXAMETHASONE SOD PHOSPHATE 20 MG/5 ML ML IM STA (20:22)
[2020-01-13] MEDS ORDERED: KETOROLAC TROMETHAMINE 60 MG/2 ML VIAL IM STA (20:22)
[2020-01-13] MEDS ORDERED: DEXAMETHASONE SOD INJ 4 MG/ML VIAL ONE (20:27)
--- NOTE | 2020-01-13 22:59 | History & Physical Report ---
Date of Service January 13, 2020 Assessment & Plan (1) Fall: Patient with mechanical fall earlier this evening. Found to have age- indeterminant sacral fracture as well as lumbar compression fractures. Pain is well controlled. She was able to ambulate in the ER without difficulty. She is to return to [facility] tomorrow - per [facility] policy in effort to minimize possible exposure to Covid-19 after returning from the ER she must first be placed in group home portion of the facility for two weeks before she can return to her independent living. [facility] does not currently have a Long-Term bed available, however, they anticipate a bed to be open by tomorrow afternoon. -Observation to medical floor -Pain control with Tylenol -Ambulate with assistance as tolerated, fall precautions -Case Management appreciated to assist with patient's return to [facility] Present on Admission?: Yes (2) Sacral fracture: As above, age indeterminant. Pain well controlled -Pain control as needed Present on Admission?: Yes (3) Hypothyroidism: Chronic -Continue Synthroid Present on Admission?: Yes (4) Mild cognitive impairment: Patient awake/alert and oriented. Pleasant and appropriate. -Avoid delirium inducing agents -Frequent orientation F/E/N - Heplock. Regular diet as tolerated Ppx - low risk for DVT Code - Full Dispo - Observation to medical floor Admission and Anticipated Discharge Date Admission Date: 01/13/20 Anticipated date of discharge: 01/14/20 History of Present Illness Chief Complaint: s/p mechanical fall Primary Care Provider: Coni De La Fuente DO Toshia Holloway is a pleasant 79yo C female presenting from [facility] after a mechanical fall earlier this evening. She states that she was dancing in her room when her foot got stuck on the carpet causing her to fall. No head trauma, no LOC. She denies CP/palpitations/SOB/weakness preceding or following the event. Presently in minimal discomfort and asking to return home. ER Course: Toradol, Dexamethasone, NSS Allergies Allergy/AdvReac Type Severity Reaction Status Date / Time mercury (elemental) Allergy Unknown Hives Verified 01/13/20 19:15 codeine AdvReac Unknown Gastrointestinal Verified 01/13/20 19:15 Upset Home Medications Home Medications Medication Instructions Recorded Confirmed Type levothyroxine 75 mcg tablet 75 mcg PO QAM 06/13/19 01/13/20 History paroxetine HCl 30 mg tablet 30 mg PO QPM 06/13/19 01/13/20 History atenolol 12.5 mg PO DAILY 01/13/20 01/13/20 History multivitamin 1 tab PO DAILY 01/13/20 01/13/20 History Past Med/Surg History Social History Preferred Language: Romanian Communication Ability: Effective [employer] Required: No Beliefs That Will Affect Care: None Current Living Situation: Personal Care Facility Current Living Situation Comment: [facility] Feels Safe at Home: Yes Smoking Status: Never smoker Second Hand Exposure: No ; Hx Alcohol Use: Yes Alcohol type: wine Hx Substance Use: No Review of Systems Review of Systems: All systems reviewed & are unremarkable except as noted in HPI & below Physical Exam Physical Exam: General: patient resting comfortably, NAD, non-toxic in appearance, AA&O x 4 Skin: warm, dry, intact, no rashes or lesions HEENT: NC/AT, PERRL, EOMI, anicteric sclera, conjunctiva without injection, external ear normal to inspection and nontender, nares patent, moist mucus membranes, dentition intact, no oropharyngeal lesions, neck supple, trachea midline, no LAD, no thyromegaly, no JVD Heart: +S1/S2, regular, no m/r/g Lungs: equal air entry bilaterally, no rales/rhonchi/wheezes Abd: +BS, soft, NT/ND, no masses/organomegaly/ascites Ext: warm, 2+ pulses in UE/LE bilaterally, no clubbing/cyanosis or edema Neuro: nonfocal, patient AA&O x 4, speech intact, no facial droop, moving all extremities on command with equal strength 5/5 Results & Data Results & Data ([facility]) Vital Signs (Past 12 Hours) Vital Signs Temp Pulse Pulse Resp BP BP Pulse Ox 01/13/20 22:00 76 20 97 01/13/20 19:52 78 18 162/88 H 97 01/13/20 18:14 36.8 C 72 20 137/100 99 Laboratory Results XR pelvis 1-2V routine, XR coccyx 2V HISTORY: 79 years-old Female 2v . r/o fx acute pelvic and coccygeal pain COMPARISON: Lumbar spine radiographs of same day, MRI lumbar spine 04/24/2019 TECHNIQUE: AP view the pelvis with 3 views of the coccyx FINDINGS: PELVIS: No definite acute fracture or subluxation identified on this single AP view of the pelvis. Moderate osteoarthritis of the hips. Soft tissues are unremarkable. COCCYX: Age-indeterminate fracture of the upper sacrum which appears to be at the S2 level. There is equivocal disruption of the right-sided sacral arcuate lines. The coccyx appears intact. IMPRESSION: 1. No acute pelvic ring fracture identified. 2. Suspected acute versus subacute upper sacral fracture. ACT 112: Negative or not required by law. The above report was generated using voice recognition software. It may contain grammatical, syntax or spelling errors. Electronically signed by: Akira Parker M.D. 01/13/2020 8:04 PM Dictated: 01/13/202001 Transcribed: 01/13/202001 XR lumbar spine 2-3V HISTORY: 79 years-old Female 2v. r/o fx acute low back pain status post fall COMPARISON: MRI lumbar spine 04/24/2019 TECHNIQUE: 3 views of the lumbar spine FINDINGS: Convex right curvature of the mid lumbar spine. Hypoplastic ribs at T12. Demineralized appearance of the bones. Unchanged remote L1 compression deformity. Unchanged 1 anterolisthesis L4 on L5, likely secondary to long- standing facet arthrosis. Severe multilevel facet arthropathy. Multilevel disc space narrowing, severe at L2-L3. Fracture involving the upper sacrum with 1.2 cm anterolisthesis S1 on S2 is new from prior. 20% anterior endplate compression deformity involves the T10 vertebral body which is chronic. Soft tissues are unremarkable. Calcified plaque of the thoracic aorta. IMPRESSION: 1. Age-indeterminate fracture of the upper sacrum is noted with 1.2 cm anterolisthesis S1 on S2, new from 04/24/2019. This is suspicious for an acute or subacute fracture. 2. Remote T10 and L1 compression deformities. 3. Multilevel degenerative changes as above. ACT 112: Negative or not required by law. The above report was generated using voice recognition software. It may contain grammatical, syntax or spelling errors. Electronically signed by: Akira Parker M.D. 01/13/2020 8:02 PM Dictated: 01/13/201957 Transcribed: 01/13/201957 Code Status & VTE Plan Code Status FULL PG Care Time/CCT Total # of Minutes Spent Total Time Spent with Patient: Total time spent is greater than 50% in coordination of care (as documented) at patient's floor/unit and/or counseling patient: Coding Level of Care Code 29434 OBS Care - Level 2 Diagnoses Fall W19.XXXA Encounter type: initial encounter Sacral fracture S32.10XA Encounter type: initial encounter Zone of sacrum fracture: unspecified portion of sacrum Fracture type: closed Hypothyroidism E89.0 Hypothyroidism type: postoperative Mild cognitive impairment G31.84 (1) Fall Encounter type: initial encounter Qualified Code(s): W19.XXXA - Unspecified fall, initial encounter (2) Sacral fracture Encounter type: initial encounter Zone of sacrum fracture: unspecified portion of sacrum Fracture type: closed Qualified Code(s): S32.10XA - Unspecified fracture of sacrum, initial encounter for closed fracture (3) Hypothyroidism Hypothyroidism type: postoperative Qualified Code(s): E89.0 - Postprocedural hypothyroidism
--- NOTE | 2020-01-13 23:17 | Emergency Department Note ---
Impression & Plan Sacral fracture, Fall ED Provider Note NAME: JA ANDREW AGE: 79 SEX: F ARRIVES VIA: Ambulance INFORMANT: Patient, ED PROVIDER(S): Roberto Bee MD CHIEF COMPLAINT: back pain, fall PLAN: Disposition: Admit MEDICAL DECISION MAKING: The patient is a pleasant 79-year-old woman with a past medical history of of spinal stenosis of the lumbar region, osteoporosis, dementia who presents emergency department after having a mechanical fall at home when she was "playing around with a friend" and fell onto her buttocks. She denied any head strike, loss of consciousness. She did not attempt to walk afterward. Denies any preceding dizziness or weakness. Denies fevers, chills, cough, congestion, nausea, vomiting, diarrhea, urinary sx. On arrival patient is uncomfortable but no acute distress, afebrile stable vital signs. On exam patient's pelvis is stable. She has full range of motion of her hips bilaterally including flexion extension, internal/external rotation, abduction/abduction. There is good strength in bilateral lower extremities. She does have mild tenderness of the lower lumbar region extending into her sacrum without bony crepitus. Plain films were performed and does demonstrate a sacral fracture with 1.2 cm anterolisthesis S1 on S2. Patient was feeling improved after IM Toradol. An ambulatory trial was performed and the patient felt she was able to ambulate at her baseline. Unfortunately, the patient lives in assisted living at [facility] and they have instituted a new policy during the current COVID-19 pandemic that any patient who is seen at the hospital, including emergency department cannot return to their independent living and must first spent 14 days in their shelter as a quarantine to ensure they have not contracted the coronavirus. They report they will not have beds available until tomorrow. Thus, given this we will admit the patient for monitoring overnight. Patient is agreeable with this plan. Case was discussed with Dr. Melchor, [facility] hospitalist, who will evaluate the patient for admission. This patient was managed with the assistance of resident, Dr. Salomon Tirado. I discussed the case with the resident, examined the patient, and confirm the fin dings and plan as documented in this note. Triage Nursing notes reviewed and agree them. Prior medical records reviewed Vital Signs: reviewed and remarkable for no significant abnormalities Differential diagnosis: Fracture, subluxation, dislocation, contusion, ligamentous injury, neurovascular, compartment syndrome, rhabdomyolysis, as well as other pathologies. ER treatment provided: See below. Imaging studies: XR lumbar spine 2-3V HISTORY: 79 years-old Female 2v. r/o fx acute low back pain status post fall COMPARISON: MRI lumbar spine 04/24/2019 TECHNIQUE: 3 views of the lumbar spine FINDINGS: Convex right curvature of the mid lumbar spine. Hypoplastic ribs at T12. Demineralized appearance of the bones. Unchanged remote L1 compression deformity. Unchanged 1 anterolisthesis L4 on L5, likely secondary to long- standing facet arthrosis. Severe multilevel facet arthropathy. Multilevel disc space narrowing, severe at L2-L3. Fracture involving the upper sacrum with 1.2 cm anterolisthesis S1 on S2 is new from prior. 20% anterior endplate compression deformity involves the T10 vertebral body which is chronic. Soft tissues are unremarkable. Calcified plaque of the thoracic aorta. IMPRESSION: 1. Age-indeterminate fracture of the upper sacrum is noted with 1.2 cm anterolisthesis S1 on S2, new from 04/24/2019. This is suspicious for an acute or subacute fracture. 2. Remote T10 and L1 compression deformities. 3. Multilevel degenerative changes as above. ACT 112: Negative or not required by law. -- XR pelvis 1-2V routine, XR coccyx 2V HISTORY: 79 years-old Female 2v . r/o fx acute pelvic and coccygeal pain COMPARISON: Lumbar spine radiographs of same day, MRI lumbar spine 04/24/2019 TECHNIQUE: AP view the pelvis with 3 views of the coccyx FINDINGS: PELVIS: No definite acute fracture or subluxation identified on this single AP view of the pelvis. Moderate osteoarthritis of the hips. Soft tissues are unremarkable. COCCYX: Age-indeterminate fracture of the upper sacrum which appears to be at the S2 level. There is equivocal disruption of the right-sided sacral arcuate lines. The coccyx appears intact. IMPRESSION: 1. No acute pelvic ring fracture identified. 2. Suspected acute versus subacute upper sacral fracture. ACT 112: Negative or not required by law. Consultation(s): Case was discussed with Dr. Melchor, [facility] hospitalist, who will evaluate the patient for admission. HPI: The patient is a pleasant 79-year-old woman with a past medical history of of spinal stenosis of the lumbar region, osteoporosis, dementia who presents emergency department after having a mechanical fall at home when she was "playing around with a friend" and fell onto her buttocks. She denied any head strike, loss of consciousness. She did not attempt to walk afterward. Denies any preceding dizziness or weakness. Denies fevers, chills, cough, congestion, nausea, vomiting, diarrhea, urinary sx. ROS: See above HPI for pertinent positives & negatives. A total of 10 systems reviewed and were otherwise negative. PAST MEDICAL HISTORY:See Below PAST SURGICAL HISTORY:See Below FAMILY HISTORY:See Below SOCIAL HISTORY:See Below HOME MEDICATIONS:See Below ALLERGIES:See Below VITALS:See Below PHYSICAL EXAMINATION: GENERAL: Awake, alert, uncomfortable-appearing, in no distress HENT: Normocephalic, atraumatic. Oropharynx with dry mucous membranes and othe rwise unremarkable. EYES: Normal conjunctiva. Sclera non-icteric. EOMI. No nystamgus. PEARRL. NECK: Supple. No nuchal rigidity. FROM. No JVD. RESPIRATORY: Clear to auscultation. CARDIAC: Regular rate, normal rhythm. Extremities warm and well perfused. Pulses equal. ABDOMEN: Soft, non-distended. No tenderness to palpation. No rebound or guarding. No masses. RECTAL: Deferred. MUSCULOSKELETAL: Chest examination reveals no tenderness. The back is symmetrical on inspection without obvious abnormality. Mild tenderness of the lower lumbar region extending into her sacrum without bony crepitus. There is no CVA tenderness to palpation. No joint edema. Pelvis stable. Hips with FROM bilaterally. LOWER EXTREMITIES: Calves are equal size bilaterally and non-tender. No edema. No discoloration. NEURO: Normal sensorium. No sensory or motor deficits noted. 5/5 strength and SILT x 4 extremities. Intact finger to nose. SKIN: No rash or jaundice noted. Roberto Bee MD Past Med/Surg History Social History Preferred Language: Tajik Communication Ability: Effective Pharmaceutical Sales Representative Required: No Beliefs That Will Affect Care: None Current Living Situation: Other Current Living Situation Comment: independent living Feels Safe at Home: Yes Smoking Status: Former smoker Second Hand Exposure: No ; Hx Alcohol Use: No Hx Substance Use: No Allergies Allergies Allergy/AdvReac Type Severity Reaction Status Date / Time mercury (elemental) Allergy Unknown Hives Verified 01/13/20 19:15 codeine AdvReac Unknown Gastrointestinal Verified 01/13/20 19:15 Upset Home Meds Home Medications Medication Instructions Recorded Confirmed levothyroxine 75 mcg tablet 75 mcg PO QAM 06/13/19 01/13/20 paroxetine HCl 30 mg tablet 30 mg PO QPM 06/13/19 01/13/20 atenolol 12.5 mg PO DAILY 01/13/20 01/13/20 multivitamin 1 tab PO DAILY 01/13/20 01/13/20 Results & Data (ED) Vital Signs Vital Signs - 24 hr 01/13/20 18:14 01/13/20 19:52 01/13/20 22:00 Temperature 36.8 C Temperature Source Oral Pulse Rate 72 Pulse Rate [Finger] 78 76 Respiratory Rate 20 18 20 Respiratory Effort / Characteristics Non-Labored Spontaneous Respiratory Pattern Regular Blood Pressure 137/100 Blood Pressure [Left Arm] 162/88 H Blood Pressure Mean 112 Blood Pressure Mean [Left Arm] 112 Pulse Oximetry 99 97 97 Oxygen Delivery Method Room Air Room Air Room Air Sepsis Recent Fever Within 48 Hours No Sepsis New/Unexplained Change in Mental Status No Sepsis Action Taken by Nursing No Action Required Administered Medications Discontinued Medications Dexamethasone (Decadron) Confirm Administered Dose 12 mg .ROUTE .STK-MED ONE Stop: 01/13/20 20:28 Last Admin: 01/13/20 20:33 Dose: 10 mg Documented by: [id number] Dexamethasone Sodium Phosphate (Decadron) 10 mg IM NOW STA Stop: 01/13/20 20:23 Last Admin: 01/13/20 20:33 Dose: Not Given Documented by: [id number] Sodium Chloride (Nss 1000ml) 1,000 mls @ 999 mls/hr IV .Q1H1M AZAM Stop: 01/13/20 19:45 Last Admin: 01/13/20 20:29 Dose: Not Given Documented by: [id number] Ketorolac Tromethamine (Toradol) 30 mg IM NOW STA Stop: 01/13/20 20:23 Last Admin: 01/13/20 20:33 Dose: 30 mg Documented by: [id number] Blood Pressure Blood Pressure Findings: Normal blood pressure Blood Pressure Disposition: further management by hospitalist Discharge Plan Visit Data *Final* Discharge Date/Time: 01/13/20 23:41 Chief Complaint: Fall ED Provider: Roberto Bee ED Midlevel Provider: Salomon Tirado Discharge Problem: Sacral fracture, Fall Patient Disposition: Admitted As Inpatient Condition: Good Discharge Instructions Interventions: ED Discharge Assessment Last Done: 01/13/20 23:41 Discharge Problem: Sacral fracture Qualifiers: Encounter type: initial encounter Zone of sacrum fracture: unspecified portion of sacrum Fracture type: closed Qualified Code(s): S32.10XA - Unspecified fracture of sacrum, initial encounter for closed fracture Fall Qualifiers: Encounter type: initial encounter Qualified Code(s): W19.XXXA - Unspecified fall, initial encounter
[2020-01-14] MEDS ORDERED: ACETAMINOPHEN 325 MG TAB PO PRN (00:12)
[2020-01-14] MEDS ORDERED: INFLUENZA VACCINE HIGH DOSE 65+ 0.5 ML SYR IM ONE (00:32)
[2020-01-14] MEDS ORDERED: INFLUENZA ADMINISTRATION CHARGE ONE (00:32)
[2020-01-14] MEDS: LEVOTHYROXINE SODIUM 75 MCG TABLET PO SCH (06:04)
[2020-01-14] MEDS: ATENOLOL 25 MG TABLET PO SCH (07:39)
[2020-01-14] MEDS ORDERED: TRAMADOL HCL 50 MG TABLET PO PRN (11:19)
[2020-01-14] MEDS: CHOLECALCIFEROL 1,000 UNITS 25 MCG TAB PO SCH (13:07)
--- NOTE | 2020-01-14 15:33 | CT Scan Report ---
CT pelvis wo con CLINICAL HISTORY: sacral fracture with anterolisthesis COMPARISON STUDY: CT of the pelvis January 13, 2018. Coccyx and pelvis radiographs January 13, 2020. TECHNIQUE: Axial images of the pelvis and sacrum were obtained without IV contrast. Sagittal and andrés nal reconstructions were viewed. Automated exposure control was utilized for the study. A dose lower ing technique was utilized adhering to the principles of ALARA. FINDINGS: Sacroiliac joints and symphysis pubis are intact. There are acute appearing nondisplaced bi lateral sacral ala fractures. In addition, there is an acute minimally displaced fracture through the S2 vertebral body with slight angulation. No acute proximal femoral fracture is noted. Alignment of the hips is anatomic. The uterus and ovaries are surgically absent. There is no pelvic lymphadenopath y or ascites. No pelvic hematoma is identified. No suspicious osseous lesion is noted. IMPRESSION: 1. Acute appearing nondisplaced bilateral sacral ala fractures. 2. Acute minimally displaced fracture through the S2 vertebral body with slight angulation. ACT 112: Negative or not required by law. Electronically signed by: Betito Rodriges M.D. 01/14/2020 3:32 PM
--- NOTE | 2020-01-14 20:51 | Hospitalist Progress Note ---
Date of Service January 14, 2020 Assessment & Plan (1) Fall: Etiology uncertain. I spoke with the patient's daughter by phone and she states her mother has had 4-5 falls over the last 10 days. B12 level today wnl. will repeat cbc, bmp, mag in am. cont PT/OT. no obvious infectious symptoms causing her falls. (2) Sacral fracture: S2 fracture and sacral ala fractures. spoke with orthopedics - WBAT, no specific treatment other than pain control. CT pelvis obtained and showed minimal displacement of S2 fracture. Tylenol prn pain. Allow tramadol 25mg prn as well. Vit D supplementation 2000 IU daily. (3) Hypothyroidism: TSH mildly high. Daughter believes her mother has not been taking such lately. Thus, would not change dose and simply repeat TSH in 3-4 weeks. If still high then increase dose to 88mcg. (4) Mild cognitive impairment: Patient impulsive and fall risk. will place on 1:1 observation to minimize injury risk. known dementia. check thiamine level am. (5) PSVT (paroxysmal supraventricular tachycardia): per records I suspect the atenolol is for such? continue atenolol. sees Dr Gomez. (6) Anxiety and depression: cont SSRI (7) Chronic kidney disease, stage 3a: repeat BMP am (8) DVT prophylaxis: heparin 5000 BID COVID-19 test negative (SNF requirement for discharge/transfer) updated daughter extensively by phone on 01/13 Admission and Anticipated Discharge Date Admission Date: January 13, 2020 Subjective patient confused during my visit. she asked if she could go live with her daughter and son-in-law post-d/c. she was dressed in regular clothes with shoes on ready to go when I saw her. she complained of b/l upper thigh and lower buttock pain. she could not tell me how long she had had it. Review of Systems Respiratory: no dyspnea Cardiovascular: no chest pain Gastrointestinal: no abdominal pain Physical Exam Constitutional: + altered mental status; no acute distress ENMT: external ear and nose normal, oropharynx normal Respiratory: normal respiratory effort, lungs clear to auscultation Cardiovascular: Rate/Rhythm: regular rate and regular rhythm Heart Sounds: normal S1 and normal S2; no murmur Vessels: posterior tibial pulses present and dorsalis pedis pulses present; no JVD Extremities: no edema Gastrointestinal (Abdomen): normal bowel sounds, soft, nontender, no hepatosplenomegaly Musculoskeletal: tender to palpation over b/l lateral hips; pt reported tenderness in the upper posterior thighs with passive flexion of both hips; no deformity Neurologic: deep tendon reflexes 2+ bilaterally and moves all extremities; no focal motor deficits Psychiatric: Orientation: alert and oriented to person; + not oriented to place and + not oriented to time Results & Data Results & Data ([facility]) Vital Signs (Past 12 Hours) Vital Signs Temp Pulse Resp BP Pulse Ox 01/14/20 15:57 37.1 C 71 16 158/92 H 92 Laboratory Results Laboratory Results - last 24 hr 01/14/20 01/14/20 01/14/20 07:53 07:53 07:53 Vitamin B12 917 H 25-OH Vitamin D Total 28.3 L TSH 6.090 H COVID-19 PCR SARS-CoV-2 RNA (RT-PCR) 01/14/20 01/14/20 11:20 11:20 Vitamin B12 25-OH Vitamin D Total TSH COVID-19 PCR NEGATIVE SARS-CoV-2 RNA (RT-PCR) Cancelled PG Care Time/CCT Total # of Minutes Spent Total Time Spent with Patient: Total time spent is greater than 50% in coordination of care (as documented) at patient's floor/unit and/or counseling patient: Coding Level of Care Code 33173 Subseq Obs Care Lvl 3 Diagnoses Fall W19.XXXA Encounter type: initial encounter Sacral fracture S32.10XA Encounter type: initial encounter Fracture type: closed Zone of sacrum fracture: unspecified portion of sacrum Hypothyroidism E89.0 Hypothyroidism type: postoperative Mild cognitive impairment G31.84 PSVT (paroxysmal supraventricular tachycardia) I47.1 Anxiety and depression F41.9; F32.9 Chronic kidney disease, stage 3a N18.3 DVT prophylaxis Z29.9 (1) Fall Encounter type: initial encounter Qualified Code(s): W19.XXXA - Unspecified fall, initial encounter (2) Sacral fracture Encounter type: initial encounter Fracture type: closed Zone of sacrum fracture: unspecified portion of sacrum Qualified Code(s): S32.10XA - Unspecified fracture of sacrum, initial encounter for closed fracture (3) Hypothyroidism Hypothyroidism type: postoperative Qualified Code(s): E89.0 - Postprocedural hypothyroidism
[2020-01-14] MEDS ORDERED: PARoxetine HCL 20 MG TAB PO SCH (21:00)
[2020-01-14] MEDS: HEPARIN SOD 5,000 UNIT/0.5 ML VIAL SQ SCH (21:33)
[2020-01-14 23:13] VITALS: O2SAT 94
[2020-01-15] MEDS: LEVOTHYROXINE SODIUM 75 MCG TABLET PO SCH (05:53)
[2020-01-15 07:18] VITALS: BP 167/88; PULSE 58; TEMP 97.7
[2020-01-15 07:41] LABS: Hematocrit (blood only) 39.8 % (37-47); Hemoglobin 12.9 g/dL (12.0-16.0); Mean Corpuscular Hemoglobin 30.1 pg (25-34); Mean Corpuscular Hgb Conc 32.4 g/dL (32-36); Mean Platelet Volume 10.5 fL (7.4-10.4); Platelet Count 274 K/uL (130-400); RDW Coefficient of Variation 13.7 % (11.5-14.5); RDW Standard Deviation 46.2 fL (36.4-46.3); Red Blood Count 4.28 M/uL (4.2-5.4); White Blood Count 10.59 K/uL (4.8-10.8)
[2020-01-15 08:18] LABS: BUN Creatinine Ratio 22.8 (10-20); Calcium 8.7 mg/dl (8.5-10.1); Creatinine Clr Calc Pharmacy 46.5 ml/min; Est GFR (African American) 65.7; Est GFR (Non-African American) 56.6; Magnesium 2.6 mg/dl (1.8-2.4); Potassium 4.2 mmol/L (3.5-5.1)
[2020-01-15] MEDS: ATENOLOL 25 MG TABLET PO SCH (08:39)
[2020-01-15] MEDS: CHOLECALCIFEROL 1,000 UNITS 25 MCG TAB PO SCH (08:40)
[2020-01-15] MEDS: HEPARIN SOD 5,000 UNIT/0.5 ML VIAL SQ SCH (08:40)
[2020-01-15] MEDS ORDERED: THIAMINE HCL 100 MG TAB PO SCH (09:00)
--- NOTE | 2020-01-15 09:32 | CT Scan Report ---
CERVICAL SPINE CT CT DOSE: 1087.16 mGy.cm HISTORY: multiple falls, eval fracture TECHNIQUE: Multiaxial CT images of the cervical spine were performed and reformatted in the sagittal and coronal plane without the use of contrast. A dose lowering technique was utilized adhering to th e principles of ALARA. COMPARISON: Cervical spine CT 01/22/2017. FINDINGS: No fractures. Prevertebral soft tissues and the C1-C2 interval are intact. No pneumothorax. Mild air trapping within the lung apices. There is also a linear density within the left lung apex w hich is partially visualized. This favors scarring or atelectasis. Moderate to severe disc space narr owing throughout the cervical spine. There is 2 mm retrolisthesis of C3 on C4. This favors long-stand ing degenerative changes. There is mild motion artifact within the upper cervical spine. IMPRESSION: No fractures within the cervical spine. ACT 112: Negative or not required by law. Electronically signed by: Karlos Gonzalez M.D. 01/15/2020 9:31 AM
--- NOTE | 2020-01-15 09:34 | CT Scan Report ---
CT head/brain wo con CLINICAL HISTORY: 79 years-old Female presenting with 5 falls over 10 days; eval ICH. TECHNIQUE: Multidetector CT imaging of the head was performed without the use of intravenous contrast . IV contrast: None. One or more dose lowering techniques were used consistent with the principles of ALARA (as low as reasonably achievable), including automatic exposure control, mA or kV adjustment t o individual patient size, and/or use of iterative reconstruction. COMPARISON: 01/22/2017. CT DOSE (mGy.cm): The estimated cumulative dose is 1087.16. 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 Proportional ventricular and sulcal prominence, likely age-related parenchymal volume loss. No hemorr ron. Minimal periventricular and subcortical white matter hypoattenuation, nonspecific but likely in dicative of chronic small vessel ischemic change. Old lacunar infarct noted in the left basal ganglia , unchanged. No acute territorial infarct. No mass effect or midline shift. No extra-axial fluid brandin ection. Paranasal sinuses and mastoid air cells clear. Calvarium intact. IMPRESSION: 1. Minimal chronic small vessel ischemic change. No acute intracranial abnormality. ACT 112: Negative or not required by law. Electronically signed by: Roel Mccullough M.D. 01/15/2020 9:33 AM
--- NOTE | 2020-01-15 12:50 | Discharge Summary ---
Date of Service date of admission - January 13, 2020 date of discharge - January 15, 2020 Admission HPI Per Admitting Provider Toshia Holloway is a pleasant 79yo C female presenting from [facility] after a mechanical fall earlier this evening. She states that she was dancing in her room when her foot got stuck on the carpet causing her to fall. No head trauma, no LOC. She denies CP/palpitations/SOB/weakness preceding or following the event. Presently in minimal discomfort and asking to return home. ER Course: Toradol, Dexamethasone, NSS Principal Diagnosis sacral ala fracture and sacral fracture at S2 - 2nd to fall Discharge Exam Constitutional + altered mental status; no acute distress ENMT external ear and nose normal, oropharynx normal Respiratory normal respiratory effort, lungs clear to auscultation Cardiovascular Rate/Rhythm: regular rate and regular rhythm Heart Sounds: normal S1 and normal S2; no murmur Vessels: posterior tibial pulses present and dorsalis pedis pulses present; no JVD Extremities: no edema Gastrointestinal (Abdomen) normal bowel sounds, soft, nontender, no hepatosplenomegaly Musculoskeletal no pain with passive flexion/extension of both hips; no tenderness with palpation of lumbar spine Neurologic deep tendon reflexes 2+ bilaterally and moves all extremities; no focal motor deficits Psychiatric Orientation: alert and oriented to person; + not oriented to place and + not oriented to time Discharge Data Allergies Allergy/AdvReac Type Severity Reaction Status Date / Time mercury (elemental) Allergy Unknown Hives Verified 01/13/20 19:15 codeine AdvReac Unknown Gastrointestinal Verified 01/13/20 19:15 Upset Consultations PT, OT Ordered Studies 01/14/20 CT pelvis wo con - IMPRESSION: 1. Acute appearing nondisplaced bilateral sacral ala fractures. 2. Acute minimally displaced fracture through the S2 vertebral body with slight angulation. 01/15/20 - CT cervical spine wo con - no fractures. CT head/brain wo con - no acute stroke, ICH, or fracture. Old lacunar infarct, left basal ganglia. Hospital Course (1) Fall: Etiology uncertain. Had had 4-5 falls over the last 10 days before admission. B12 level today wnl. no obvious infectious symptoms causing her falls. Her fall resulted in a pelvic fracture and sacral fracture - see below. These do not require any specific treatment from a surgeon. She can weight-bear ast tolerated. She received PT/OT services while here. (2) Sacral fracture: S2 fracture and sacral ala fractures. Discussed case with orthopedics - WBAT, no specific treatment other than pain control. CT pelvis obtained and showed minimal displacement of S2 fracture. Tylenol prn pain. Tramadol 25=50 mg prn as well. Vit D supplementation 2000 IU daily. Vitamin D level was just shy of normal at 28. (3) Hypothyroidism: TSH mildly high. Daughter believes her mother had not been taking her medication faithfully each day.. Thus, would not change dose and simply repeat TSH in 3-4 weeks. If still high then increase dose to 88mcg at that time. (4) Mild cognitive impairment: Patient impulsive and fall risk. Perhaps that is what led to her falls. B12 level wnl. B1 level sent; pending at discharge. Given thiamine 200mg BID for 1 month while awaiting level. (5) PSVT (paroxysmal supraventricular tachycardia): per records I suspect the atenolol is for such continue atenolol sees Dr Gomez - [facility] (6) Anxiety and depression: cont SSRI (7) Chronic kidney disease, stage 3a: discharge Cr 0.96 in preparation for returning to [facility] patient had COVID-19 testing and this was NEGATIVE Total Time Total Time Spent Total Time Spent (In Minutes): 35 Total Time Includes: Examination of the Patient, Discharge Planning, Medication Reconciliation and Communication With Other Providers Discharge Plan Discharge Items Patient Disposition: Transfer Nursing Home Fac Reason For Visit: MECHANICAL FALL Discharge Diagnosis: 1. recent falls 2. sacral fracture Condition on Discharge: Good Activity: As commented below Activity Comment: weight-bearing as tolerated Lifting: Gradually increase as tolerated Exercise/Sports: Gradually increase as tolerated Weightbearing: Full weightbearing Non-emergency contact: Primary Care Provider Call non-emergency contact if: you have any medication questions, your symptoms worsen, your pain is not controlled, your pain is worsening and you have a fever Follow-up/Referrals: Coni De La Fuente, [Primary Care Provider] - (see Dr De La Fuente within 1 week ) Diet: Regular Addtl Attending Provider Instructions: Mrs Aparicio had suffered recent falls which led to fractures of her sacrum. This is the cause of her buttock and upper thigh pain. These do not require surgery. They will heal slowly over time (weeks). She can weight-bear as tolerated and will need pain control (tylenol, ultram, etc). There was no evidence of hip fractures. CAT scan of the head did not show blood or fracture. CAT scan of the neck did not show fractures. There was a considerable amount of arthritis, however. Tramadol was used for pain and she tolerated this. Blood work was normal except TSH level was mildly elevated (thyroid level). COVID-19 test was NEGATIVE. Recommendations - 1. repeat TSH in 3-4 weeks; if still high consider higher dose of thyroid medication 2. vitamin D supplement 2000 IU daily indefinitely 3. thiamine supplement 200mg twice a day for 1 month then stop 4. weight-bearing as tolerated 5. f/u with Dr De La Fuente within 1 week Return to [facility] if - * fever over 100.5 degrees * uncontrollable pain of back, hips, or pelvis * any other concerns Pending Studies at Discharge: Yes Studies:: Thiamine (B1) level Stand-Alone Forms: My [facility] Skilled Items Patient informed of condition?: Yes DNR: No Discharge Level of Care: Skilled Communicable Disease: No Discharge Prognosis: Stable Lines: None Urinary Catheter: No Medications and DC Order Prescriptions: New thiamine HCl (vitamin B1) [Vitamin B-1] 100 mg Tablet 200 mg PO BID 30 Days Qty: 120 RF: 0 tramadol 50 mg Tablet 25 - 50 mg PO Q6H PRN (Reason: pain) Qty: 30 RF: 0 cholecalciferol (vitamin D3) 25 mcg (1,000 unit) Capsule 2,000 unit PO QAM Qty: 60 RF: 2 acetaminophen [Tylenol Extra Strength] 500 mg tablet 1,000 mg PO TID 14 Days Qty: 84 RF: 0 Continued paroxetine HCl 30 mg tablet 30 mg PO QPM RF: 0 levothyroxine 75 mcg tablet 75 mcg PO QAM RF: 0 multivitamin Tablet 1 tab PO DAILY RF: 0 atenolol 25 mg tablet 12.5 mg PO DAILY RF: 0 Discharge Orders: Discharge Order (Routine); Ordered 01/15/20 Ordered By: Rodrigo Day Admission Data Admit Date/Time: 01/13/20 22:46 Attending Provider: Rodrigo Day Admit Provider: Kamila Melchor Primary Care Provider: Coni De La Fuente Other Interventions: Discharge Summary Assessment (RN) Last Done: 01/15/20 13:42 DC Date/Time DO NOT enter until pt leaves facility: 01/15/20 14:18 Coding Level of Care Code 91591 OBS Care - Discharge Diagnoses Fall W19.XXXA Encounter type: initial encounter Sacral fracture S32.10XA Encounter type: initial encounter Fracture type: closed Zone of sacrum fracture: unspecified portion of sacrum Hypothyroidism E89.0 Hypothyroidism type: postoperative Mild cognitive impairment G31.84 PSVT (paroxysmal supraventricular tachycardia) I47.1 Anxiety and depression F41.9; F32.9 Chronic kidney disease, stage 3a N18.3
== END 2020-01-15 14:18 ==
LOC: ED 18:15 → 2N 18:15 → SUATTDRO 22:46 → 2N 23:41

== ENCOUNTER 2023-02-27 02:45 | Observation (INO) ==
[2023-02-27] MEDS ORDERED: ASPIRIN CHEW 324 MG PO STA (03:12)
--- NOTE | 2023-02-27 03:12 | Emergency Department Note ---
Impression & Plan Chest pain, Dementia ED Provider Note NAME: JA ANDREW AGE: 82 SEX: F : 1940 ARRIVES VIA: Ambulance INFORMANT: Patient, EMS ED PROVIDER(S): Tomasz Mackenzie DO CHIEF COMPLAINT: chest pain HPI: Patient is an 82-year-old female with a past medical history of SVT, stroke, dementia who presents to the ER for chest pressure which was located in the middle of her chest per report. She had some arm pain with it. She denies any headache or change in vision. No belly pain, nausea, vomiting, or diarrhea currently. No dysuria, urgency, or frequency. No other exacerbating or remitting factors. Patient was brought in by EMS. Patient does not remember having chest pain at this time. She is a resident of [facility] and does have dementia.. PAST MEDICAL HISTORY:See Below PAST SURGICAL HISTORY:See Below FAMILY HISTORY:See Below SOCIAL HISTORY:See Below HOME MEDICATIONS:See Below ALLERGIES:See Below VITALS:See Below PHYSICAL EXAMINATION: GENERAL: Sitting up in bed, alert, well appearing, well nourished, no distress, non-toxic EYE EXAM: normal conjunctiva. PERRL and EOM's grossly intact. OROPHARYNX: no exudate, no erythema, lips, buccal mucosa, and tongue normal and mucous membranes are moist NECK: supple, no nuchal rigidity, no adenopathy, non-tender LUNGS: Clear to auscultation. Normal chest wall mechanics HEART: no murmurs, S1 normal and S2 normal ABDOMEN: abdomen soft, non-tender, normo-active bowel sounds, no masses, no rebound or guarding. UPPER EXTREMITIES: upper extremities are grossly normal. LOWER EXTREMITIES: No pitting edema. NEURO EXAM: Awake alert oriented to only person, cranial nerves II-XII grossly intact, normal speech, no gross weakness of arms, no gross weakness of legs. MEDICAL DECISION MAKING: Patient is an 82-year-old female who presents ER for above-stated complaint. IV was established blood work was obtained. External records reviewed. Labs show no significant leukocytosis or anemia. BMP was remarkable for slightly elevated glucose at 104. LFTs bilirubin was unremarkable. Troponin was negative. Lipase negative. COVID-negative. Patient was given aspirin upon arrival. She does not recall the events which led to this. She does clearly have dementia. She told the nurse that she did fall the day before. On my evaluation she denies any fall. On evaluation there is no obvious signs of trauma. She was updated bedside. Discussed with the hospitalist for further evaluation management and monitoring due to the chest pain. Chest x-ray was unremarkable. Discussed with the hospitalist Dr. Olu Abarca for further evaluation management treatment Triage Nursing notes reviewed. Limited review of prior medical records performed Vital Signs: reviewed and remarkable for no significant abnormalities Differential diagnosis: Cardiac ischemia, aortic dissection, pulmonary embolism, pneumothorax, pneumonia, pericarditis, myocarditis, esophageal rupture, GERD, cholecystitis, pancreatitis, musculoskeletal, as well as other pathologies. ER treatment provided: See below Diagnostics interpreted by me include EKG and cardiac monitoring as listed below: -Cardiac Monitoring: An order was placed for continuous cardiac monitoring. The monitor shows a rate of 80 with sinus rhythm. -ECG: Sinus rhythm rate of 77 Normal axis No PVCs QTc 470 -Laboratory studies:Interpreted by me as stated above in MDM and shown below. Imaging studies: Xrays: As interpreted by me: Portable AP upright 1 view of the chest shows no focal infiltrate CTs show: none Consultation(s): As described in MDM Procedures:none Critical Care: None Past Med/Surg History Medical History (Updated 02/27/23 @ 05:53 by Tomasz Mackenzie DO) Alzheimer disease "probable" poor historian Anxiety Chronic back pain Hearing deficit History of anesthesia reaction very confused with anesthesia Hypothyroidism Leg length discrepancy Lumbar compression fracture Osteoarthritis Osteoporosis Sacroiliitis Spinal stenosis Spinal stenosis of lumbar region Stroke listed on past problem list/ pts daughter states it was Not stroke/ just symptoms associated with the SVT which has now been corrected with ablation Surgical History (System 02/16/20 @ 13:12 by Salome Keller) H/O cardiac radiofrequency ablation 2016/ sue/ sees Dr. Gomez/ had for "irregular heartbeat" no more issues with it History of ankle surgery pt unsure which side History of colonoscopy History of hysterectomy History of thyroidectomy History of tonsillectomy Family History (System 02/16/20 @ 13:12 by Salome Keller) Father Coronary heart disease Cardiac disorder Hypertension Mother Diabetes Lymphoma Heart problem Social History (System 02/16/20 @ 13:12 by Salome Keller) Smoking Status: Never smoker Second Hand Exposure: No; Do You Dip or Chew Tobacco: No; Hx Alcohol Use: No Hx Substance Use: No Preferred Language: Comoran Communication Ability: Impaired Windshield 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 Technician Required: No Beliefs That Will Affect Care: None Current Living Situation: Other Current Living Situation Comment: independent living Feels Safe at Home: Yes Assistive Devices: None Allergies Allergies Allergy/AdvReac Type Severity Reaction Status Date / Time mercury (elemental) Allergy Unknown Hives Verified 02/16/20 13:12 codeine AdvReac Unknown Gastrointestinal Verified 02/16/20 13:12 Upset Home Meds Home Medications Medication Instructions Recorded Confirmed levothyroxine 75 mcg tablet 75 mcg PO QAM 06/13/19 01/13/20 paroxetine HCl 30 mg tablet 30 mg PO QPM 06/13/19 01/13/20 atenolol 25 mg tablet 12.5 mg PO DAILY 01/13/20 01/13/20 multivitamin 1 tab PO DAILY 01/13/20 01/13/20 Previous Rx's Medication Instructions Recorded cholecalciferol (vitamin D3) 25 2,000 unit PO QAM #60 caps 01/15/20 mcg (1,000 unit) capsule tramadol 50 mg tablet 25 - 50 mg PO Q6H PRN pain #30 tabs 01/15/20 Results & Data (ED) Vital Signs Vital Signs - 24 hr 02/27/23 03:03 02/27/23 03:25 Temperature 36.8 C Temperature Source Oral Pulse Rate 77 Pulse Rate [Apical] 73 Respiratory Rate 18 16 Blood Pressure 158/99 H Blood Pressure [Right Arm] 168/90 H Blood Pressure Mean 118 Blood Pressure Mean [Right Arm] 116 Pulse Oximetry 96 96 Oxygen Delivery Method Room Air Room Air Sepsis Recent Fever Within 48 Hours No Sepsis New/Unexplained Change in Mental Status No Sepsis Action Taken by Nursing No Action Required Laboratory Data 02/27/23 03:00 02/27/23 03:00 Lab Results 02/27/23 02/27/23 02/27/23 Range/Units 03:00 03:00 04:00 WBC 8.33 (4.8-10.8) K/ul RBC 4.48 (4.20-5.40) M/uL Hgb 13.8 (12.0-16.0) g/dl Hct 41.0 (37.0-47.0) % MCV 91.5 (80.0-100.0) fL MCH 30.8 (25.0-34.0) pg MCHC 33.7 (32.0-36.0) g/dL RDW Std Deviation 47.8 H (36.4-46.3) fL RDW Coeff of Ruiz 14.1 (11.5-14.5) % Plt Count 241 (130-400) K/uL MPV 10.8 (9.4-12.4) fL Immature Gran % (Auto) 0.2 % Neut % (Auto) 63.0 % Lymph % (Auto) 22.3 % [place] % (Auto) 12.0 % Eos % (Auto) 1.7 % Baso % (Auto) 0.8 % Neut # (Auto) 5.24 (1.40-6.50) K/uL Lymph # (Auto) 1.86 (1.2-3.4) K/uL [place] # (Auto) 1.00 H (0.11-0.59) K/uL Eos # (Auto) 0.14 (0-0.50) K/uL Baso # (Auto) 0.07 (0-0.2) K/uL Immature Gran # (Auto) 0.02 (0.01-0.20) K/uL Sodium 136 (136-145) mmol/L Potassium 4.0 (3.5-5.1) mmol/L Chloride 102 (98-107) mmol/L Carbon Dioxide 26 (21-32) mmol/L Anion Gap 8 (3-11) BUN 23 (6-23) mg/dl Creatinine 0.99 (0.6-1.2) mg/dl Est Cr Clr Drug Dosing 36.9 ml/min Est GFR ( Amer) 61.9 ml/min Est GFR (Non-Af Amer) 53.4 ml/min BUN/Creatinine Ratio 23.2 H (10-20) Glucose 104 H (70-99(Fasting)) mg/dl Calcium 9.5 (8.6-10.3) mg/dl Total Bilirubin 0.9 (0.2-1.0) mg/dl AST 46 H (13-39) U/L ALT 40 (7-52) U/L Alkaline Phosphatase 58 (34-104) U/L Troponin I High Sens 10.4 (0-14) pg/ml Total Protein 7.9 (6.0-8.3) gm/dl Albumin 3.6 (3.4-5.0) gm/dl Globulin 4.3 H (2.5-4.0) gm/dl Albumin/Globulin Ratio 0.8 L (0.9-2) Lipase 37 (11-82) U/L SARS-CoV-2, RNA, NAAT NEGATIVE (NEGATIVE) Administered Medications Discontinued Medications Aspirin (Aspirin Chew 324 Mg) 324 mg PO NOW STA Stop: 02/27/23 03:13 Last Admin: 02/27/23 03:25 Dose: 324 mg Documented By: JODIE Discharge Plan Visit Data Chief Complaint: Cardiac Assessment ED Provider: Tomasz Mackenzie Discharge Problem: Chest pain, Dementia Patient Disposition: Admitted As Inpatient Discharge Instructions Interventions: ED Discharge Assessment Last Done: 02/27/23 05:16
[2023-02-27 03:31] LABS: Albumin Globulin Ratio 0.8 (0.9-2); Albumin Level 3.6 gm/dl (3.4-5.0); BUN Creatinine Ratio 23.2 (10-20); Basophils # (auto) 0.07 K/uL (0-0.2); Basophils % (auto) 0.8 %; Bilirubin,Total 0.9 mg/dl (0.2-1.0); Calcium 9.5 mg/dl (8.6-10.3); Creatinine Clr Calc Pharmacy 36.9 ml/min; Eosinophils # (auto) 0.14 K/uL (0-0.50); Eosinophils % (auto) 1.7 %; Est GFR (African American) 61.9 ml/min; Est GFR (Non-African American) 53.4 ml/min; Globulin 4.3 gm/dl (2.5-4.0); Hemoglobin 13.8 g/dl (12.0-16.0); Immature Granulocytes # (auto) 0.02 K/uL (0.01-0.20); Immature Granulocytes % (auto) 0.2 %; Lymphocytes # (auto) 1.86 K/uL (1.2-3.4); Lymphocytes % (auto) 22.3 %; Mean Corpuscular Hemoglobin 30.8 pg (25.0-34.0); Mean Corpuscular Hgb Conc 33.7 g/dL (32.0-36.0); Mean Corpuscular Volume 91.5 fL (80.0-100.0); Mean Platelet Volume 10.8 fL (9.4-12.4); Neutrophils # (auto) 5.24 K/uL (1.40-6.50); Platelet Count 241 K/uL (130-400); RDW Coefficient of Variation 14.1 % (11.5-14.5); RDW Standard Deviation 47.8 fL (36.4-46.3); Red Blood Count 4.48 M/uL (4.20-5.40); Total Protein 7.9 gm/dl (6.0-8.3); White Blood Count 8.33 K/ul (4.8-10.8)
[2023-02-27 03:38] LABS: Troponin I High Sensitivity 10.4 pg/ml (0-14)
--- NOTE | 2023-02-27 04:42 | History & Physical Report ---
Date of Service February 27, 2023 Assessment & Plan (1) Chest pain: Plan: 82yo Female with PMH alzheimer's dementia HTN hypothyroidism depression/anxiety, hx heart disease here for chest pain. Chest pain -currently resolved at this time, vitals wnl on room air -EKG wnl -CXR pre my read wnl -trop wnl, WBC wnl -admit to med/tele -received 324mg aspirin in ED -PRN tylenol for pain -repeat trop pending Dementia -continue quetiapine HTN -continue atenolol Hypothyroidism -continue levothyroxine Depression -continue paroxetine FENa: regular with ensure Code Status: DNR/DNI DVT PPX: SCDs Dispo: med/tele Elma Torres D.O. PGY 3, FCM History of Present Illness Chief Complaint: Chest pain Primary Care Provider: [facility] 82yo Female with PMH alzheimer's dementia HTN hypothyroidism depression/anxiety, hx heart disease here for chest pain. Unfortunately patient is a poor historian and is unable to recall the event, history taken from notes from [place]. Per notes patient woke with some chest pain, had increased confusion noted tachycardia HR 138bpm. Her heart rate returned to 81bpm without intervention. Chest pain resolved. At this time patient denies any headache fever SOB chest pain nausea vomiting issues with bowel or bladder. She states she has had breathing problems for a while that are slowly improving. She may have had neck pain in the morning that has also improved. Cannot recall any recent falls. 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 Allergies Allergy/AdvReac Type Severity Reaction Status Date / Time mercury (elemental) Allergy Unknown Hives Verified 02/16/20 13:12 codeine AdvReac Unknown Gastrointestinal Verified 02/16/20 13:12 Upset Home Medications Medication Instructions Recorded Confirmed Type levothyroxine 75 mcg tablet 75 mcg PO QAM 06/13/19 01/13/20 History paroxetine HCl 30 mg tablet 30 mg PO QPM 06/13/19 01/13/20 History atenolol 25 mg tablet 12.5 mg PO DAILY 01/13/20 01/13/20 History multivitamin 1 tab PO DAILY 01/13/20 01/13/20 History cholecalciferol (vitamin D3) 25 2,000 unit PO QAM #60 caps 01/15/20 Rx mcg (1,000 unit) capsule tramadol 50 mg tablet 25 - 50 mg PO Q6H PRN pain #30 tabs 01/15/20 Rx quetiapine 25 mg tablet 25 mg PO BID 30 days #60 tabs 02/27/23 Rx Past Med/Surg History Medical History (Updated 02/27/23 @ 05:53 by Tomasz Mackenzie DO) Alzheimer disease "probable" poor historian Anxiety Chronic back pain Hearing deficit History of anesthesia reaction very confused with anesthesia Hypothyroidism Leg length discrepancy Lumbar compression fracture Osteoarthritis Osteoporosis Sacroiliitis Spinal stenosis Spinal stenosis of lumbar region Stroke listed on past problem list/ pts daughter states it was Not stroke/ just symptoms associated with the SVT which has now been corrected with ablation Surgical History (System 02/16/20 @ 13:12 by Salome Keller) H/O cardiac radiofrequency ablation 2016/ sue/ sees Dr. Gomez/ had for "irregular heartbeat" no more issues with it History of ankle surgery pt unsure which side History of colonoscopy History of hysterectomy History of thyroidectomy History of tonsillectomy Family History (System 02/16/20 @ 13:12 by Salome Keller) Father Coronary heart disease Cardiac disorder Hypertension Mother Diabetes Lymphoma Heart problem Social History (System 02/16/20 @ 13:12 by Salome Keller) Smoking Status: Unknown if ever smoked Second Hand Exposure: No; Do You Dip or Chew Tobacco: No; Hx Alcohol Use: No Hx Substance Use: No Preferred Language: Greek Communication Ability: Impaired Ager Operator Required: No Beliefs That Will Affect Care: None Current Living Situation: Other Current Living Situation Comment: [place] Feels Safe at Home: Yes Assistive Devices: None Physical Exam Constitutional: + thin, cooperative and comfortable Eyes: PERRL, conjunctivae normal, anicteric sclerae ENMT: external ear and nose normal, oropharynx normal no pain on palpation around scalp Neck: trachea midline, no thyromegaly Respiratory: normal respiratory effort, lungs clear to auscultation Cardiovascular: Rate/Rhythm: regular rate and regular rhythm Extremities: no edema Chest (Breasts): Additional Comments: No pain on palpation to chest Gastrointestinal (Abdomen): Inspection/Auscultation: abdomen normal to inspection Percussion/Palpation: abdomen soft; abdomen nontender Skin: no rashes, warm and dry Neurologic: CN's II-XI intact bilaterally and moves all extremities Psychiatric: Orientation: alert and oriented to person Results & Data Results & Data Vital Signs (Past 12 Hours) Vital Signs Temp Pulse Pulse Resp BP BP Pulse Ox 02/27/23 03:25 73 16 168/90 H 96 02/27/23 03:03 36.8 C 77 18 158/99 H 96 O2 Del Method 02/27/23 03:25 Room Air 02/27/23 03:03 Room Air Supervising Physician Co-Signing Physician Notes attending addendum: I have physically seen this patient, have supervised the medical residents activities, and agree with the H&P unless as otherwise noted. Assessment and Plan: Chest pain/PSVT history- The patient will be admitted to telemetry for serial cardiac enzymes, serial EKG's, cardiac rhythm monitoring and a 2-D echocardiogram with Dopplers. Continue atenolol 12.5 mg p.o. daily Troponin negative EKG with no acute changes Aspirin 324 mg given in the ED hypothyroidism- Continue levothyroxine Dementia/depression- Continue quetiapine and paroxetine remaining orders and notations as noted Resident Activity Tracking Resident Involvement: Resident Care Provided Care Provided: Adult Hospital Medicine
[2023-02-27] MEDS ORDERED: POLYETHYLENE (MIRALAX) 17 GM PACK PO PRN (05:42)
[2023-02-27] MEDS ORDERED: ACETAMINOPHEN 325 MG TAB PO PRN (05:42)
[2023-02-27] MEDS ORDERED: LEVOTHYROXINE SODIUM 75 MCG TABLET PO SCH (06:30)
--- NOTE | 2023-02-27 06:43 | Hospitalist Progress Note ---
Date of Service February 27, 2023 Assessment & Plan (1) Chest pain: Plan: 82yo Female with PMH dementia, HTN, hypothyroidism depression/anxiety, hx heart disease here for chest pain. Chest pain -resolved -received 324mg aspirin in ED -EKG wnl -CXR with Mild cardiomegaly with no acute cardiopulmonary abnormality identified -trop wnl x 2 Dementia -continue quetiapine HTN -continue atenolol Hypothyroidism -continue levothyroxine Depression -continue paroxetine FENa: regular with ensure Code Status: DNR/DNI DVT PPX: SCDs Admission and Anticipated Discharge Date Admission Date: February 27, 2023 Review of Systems Review of Systems: As per above Physical Exam Physical Exam: Constitutional: well-appearing, no acute distress HEENT: NCAT, no conjunctival injection CV: regular rhythm, no murmur appreciated, extremities well-perfused, no LE edema Resp: CTABL, no wheezes/rales/rhonchi appreciated, no increased work of breathing GI: soft, nondistended, nontender, BS normoactive MSK: no gross deformities appreciated Skin: warm, dry, no rash appreciated Neuro: alert, oriented, no focal neurologic deficit appreciated Results & Data Results & Data Vital Signs (Past 12 Hours) Vital Signs Temp Pulse Pulse Resp BP BP Pulse Ox 02/27/23 05:40 64 02/27/23 05:43 36.5 C 65 18 142/87 H 94 02/27/23 04:57 67 16 143/98 H 97 02/27/23 03:25 73 16 168/90 H 96 02/27/23 03:03 36.8 C 77 18 158/99 H 96 O2 Del Method 02/27/23 05:40 02/27/23 05:43 Room Air 02/27/23 04:57 Room Air 02/27/23 03:25 Room Air 02/27/23 03:03 Room Air Resident Activity Tracking Resident Involvement: Resident Care Provided Care Provided: Adult Hospital Medicine
--- NOTE | 2023-02-27 07:12 | XRay Report ---
SINGLE VIEW CHEST CLINICAL HISTORY: Atypical chest pain. FINDINGS: An AP, portable, upright chest radiograph is compared to study dated 07/09/2015. The heart is mildly enlarged noting atherosclerotic calcification of the thoracic aorta. The pulmonary vasculat ure is noncongested. Chronic interstitial thickening is similar to previous. There is bibasilar scarr ing/atelectasis. No airspace consolidation or large pleural effusion is identified. No pneumothorax i s seen. The skeletal structures are osteopenic. Bony thorax is grossly intact. IMPRESSION: Mild cardiomegaly with no acute cardiopulmonary abnormality identified. ACT 112: Negative or not required by law. Electronically signed by: Zion Cabrera M.D. 02/27/2023 7:11 AM
[2023-02-27] MEDS ORDERED: THIAMINE HCL 50 MG TABLET PO SCH (09:00)
[2023-02-27] MEDS ORDERED: MULTIVITAMIN TAB PO SCH (09:00)
[2023-02-27] MEDS ORDERED: ATENOLOL 25 MG TABLET PO SCH (09:00)
[2023-02-27] MEDS ORDERED: QUEtiapine FUMARATE 25 MG TABLET PO SCH (09:00)
[2023-02-27] MEDS ORDERED: CHOLECALCIFEROL 1,000 UNITS 25 MCG TAB PO SCH (09:00)
--- NOTE | 2023-02-27 11:22 | Discharge Summary ---
Date of Service February 27, 2023 Admission HPI Per Admitting Provider 82yo Female with PMH alzheimer's dementia HTN hypothyroidism depression/anxiety, hx heart disease here for chest pain. Unfortunately patient is a poor historian and is unable to recall the event, history taken from notes from [place]. Per notes patient woke with some chest pain, had increased confusion noted tachycardia HR 138bpm. Her heart rate returned to 81bpm without intervention. Chest pain resolved. At this time patient denies any headache fever SOB chest pain nausea vomiting issues with bowel or bladder. She states she has had breathing problems for a while that are slowly improving. She may have had neck pain in the morning that has also improved. Cannot recall any recent falls. 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 Principal Diagnosis Chest Pain Discharge Exam Constitutional: well-appearing, no acute distress HEENT: NCAT, no conjunctival injection CV: regular rhythm, no murmur appreciated, extremities well-perfused, no LE edema Resp: CTABL, no wheezes/rales/rhonchi appreciated, no increased work of breathing MSK: no gross deformities appreciated Skin: warm, dry, no rash appreciated Neuro: alert, oriented, no focal neurologic deficit appreciated Discharge Data Allergies Allergy/AdvReac Type Severity Reaction Status Date / Time mercury (elemental) Allergy Unknown Hives Verified 02/16/20 13:12 codeine AdvReac Unknown Gastrointestinal Verified 02/16/20 13:12 Upset Consultations 02/27/23 03:59 ED Decision to Admit Stat Hospital Course (1) Chest pain: 82yo Female with PMH dementia, HTN, hypothyroidism depression/anxiety, hx heart disease here for chest pain. Chest pain -resolved -received 324mg aspirin in ED -EKG wnl -CXR with Mild cardiomegaly with no acute cardiopulmonary abnormality identified -trop wnl x 2 - Discussed further workup with stress test, but pt/daughter both agreed that they do not want further work-up - Pt has been having hiccups/belching; GERD on differential- recommend sitting up for at least an hour after meals Dementia -continue quetiapine HTN -continue atenolol Hypothyroidism -continue levothyroxine - TSH from [facility] labs on 02/21= 0.37 and dose of levothyroxine was adjusted then Depression -continue paroxetine (2) Dementia: (3) Hypothyroidism: (4) Chronic kidney disease, stage 3a: Total Time Total Time Spent Total Time Spent (In Minutes): <30 Discharge Plan Discharge Items Patient Disposition: Personal Fdc Reason For Visit: CHEST PAIN Discharge Diagnosis: Chest Pain Activity: Per Instructions section Non-emergency contact: Primary Care Provider Call non-emergency contact if: you have any medication questions and your symptoms worsen Follow-up/Referrals: [facility] [Primary Care Provider] - Diet: Regular Addtl Attending Provider Instructions: 82yo Female with PMH dementia, HTN, hypothyroidism depression/anxiety, hx heart disease here for chest pain. Chest pain -resolved -received 324mg aspirin in ED -EKG wnl -CXR with Mild cardiomegaly with no acute cardiopulmonary abnormality identified -trop wnl x 2 - Discussed further workup with stress test, but pt/daughter both agreed that they do not want further work-up - Pt has been having hiccups/belching; GERD on differential- recommend sitting up for at least an hour after meals Dementia -continue quetiapine HTN -continue atenolol Hypothyroidism -continue levothyroxine - TSH from [facility] labs on 02/21= 0.37 and dose of levothyroxine was adjusted then Depression -continue paroxetine Pending Studies at Discharge: No Stand-Alone Forms: My [facility] Skilled Items Patient informed of condition?: Yes DNR: Yes Discharge Level of Care: Other Communicable Disease: No Discharge Prognosis: Improving Lines: None Urinary Catheter: No Medications and DC Order Prescriptions: New quetiapine 25 mg Tablet 25 mg PO BID 30 Days Qty: 60 0RF Continued paroxetine HCl 30 mg tablet 30 mg PO QPM levothyroxine 75 mcg tablet 75 mcg PO QAM multivitamin Tablet 1 tab PO DAILY atenolol 25 mg tablet 12.5 mg PO DAILY tramadol 50 mg Tablet 25 - 50 mg PO Q6H PRN (Reason: pain) Qty: 30 0RF cholecalciferol (vitamin D3) 25 mcg (1,000 unit) Capsule 2,000 unit PO QAM Qty: 60 2RF Discharge Orders: Discharge Order (Routine); Ordered 02/27/23 Ordered By: Fatemeh Ni Admission Data Admit Date/Time: 02/27/23 04:33 Attending Provider: Tomasz Joy Admit Provider: Elma Torres Primary Care Provider: [facility] Other Providers: Olu Abarca Other Interventions: Discharge Summary Assessment (RN) Last Done: 02/27/23 13:02 Supervising Physician Co-Signing Physician Notes I personally examined the patient and verified all seymour points of history and exam, discussed case, and agree with decision making with Dr Ni no chest pain, does not really recall events leading to admission. Daughter present at the bedside, discussed with patient and daughterpatient obviously has a hard time comprehending, but is conversationally appropriate, daughter expresses a good depth of understanding. Vitals noted, in general she is awake pleasant no distress. HEENT normocephalic atraumatic mucous membranes moist. Breathing unlabored no accessory muscle use good effort. Skin shows no rashes no pallor or icterus. Neuro without focal deficits. Chest painno AR based on EKGs and troponins, discussed further testing to rule out an unstable angina type picture, but daughter was very clear that it would not be in the patient's wishes to have anything interventional done such as a heart cath, so we both agreed it would not make sense to proceed with further testing. This all seemed extremely reasonable given the patient's age and dementia. Further, patient's daughter noted that the patient had some hiccuping and burping, and we both concluded it was likely reflux. Discussed basic measures to prevent further reflux such as being upright for an hour after eating before laying down. Since this was a one-time episode, we both agreed there did not appear to be a need for any medical intervention at this time. Safe for return to personal care
--- NOTE | 2023-02-27 12:54 | Billing Data ---
Date of Service February 27, 2023 Coding Level of Care Code 81758 IN/OBS DISCH 30 MIN/LESS
--- NOTE | 2023-02-27 20:10 | Billing Data ---
Date of Service February 27, 2023 Coding Level of Care Code 13756 INT INP/OBS CARE
[2023-02-27] MEDS ORDERED: PARoxetine HCL 20 MG TAB PO SCH (21:00)
--- NOTE | 2023-03-01 22:02 | Electrocardiogram Report ---
Test Reason : Blood Pressure : / mmHG Vent. Rate : 077 BPM Atrial Rate : 077 BPM P-R Int : 162 ms QRS Dur : 092 ms QT Int : 416 ms P-R-T Axes : 060 016 046 degrees QTc Int : 470 ms Normal sinus rhythm Nonspecific ST abnormality Abnormal ECG When compared with ECG of 10-JUL-2015 09:42, No significant change was found Confirmed by Antelmo Romero ([id number]) on 03/01/2023 10:01:59 PM Referred By: [facility] Confirmed By:Antelmo Romero
== END 2023-02-27 15:15 | disposition home or self-care (01) ==
LOC: ED 02:45 → 2N 02:45 → SUATTDRO 04:33 → 2N 05:16

== ENCOUNTER 2023-03-01 18:38 | Inpatient (IN) ==
--- NOTE | 2023-03-01 19:50 | Emergency Department Note ---
Impression & Plan Fall, Dementia, Laceration of lip, Knee pain, left, Acute UTI ED Provider Note Provider: Donte Hale MD DATE OF SERVICE: 03/01/2023 CHIEF COMPLAINT: Fall, lip laceration HISTORY OF PRESENT ILLNESS: Patient is a 82-year-old female history of memory issues presenting here today after a fall at [facility]. Evidently according to daughter who is present for history patient had probably a fall last night where she fell and struck her chest and knee as well as a fall this evening where she fell and hurt her chin and lip. No reported loss of conscious. Not on significant blood thinners. Recent evaluation and overnight stay here for chest discomfort. Patient reporting bit of pain with touch to the chest as well as some light pain to the left kneecap. Reports some pain to the chin. Denies significant dizziness or severe headache. Denies new numbness or tingling. Unsure of tetanus status. Daughter states PAST MEDICAL HISTORY: As noted above MEDICATIONS: Reviewed medication list with facility SOCIAL HISTORY: Resides at [facility] care unit PHYSICAL EXAM: GENERAL: alert in no acute distress on stretcher Head: normocephalic with a small laceration approximately 1/2 cm overlying the right lower lip. Contusion to the chin noted. EYES: No injection, discharge or icterus. PERRL, EOMI. NECK: Trachea midline. Supple. ENT: Mucous membranes pink and moist. Pharynx without erythema or exudate. No through and through laceration of the mouth or loose teeth. No blood in the nares or septal hematoma. LUNGS: Airway patent. No retractions. Breath sounds clear with good air entry bilaterally. HEART: Regular rate and rhythm. Mild chest wall tenderness without crepitus ABDOMEN: Soft and non-tender, without guarding or rebound. BACK: No bilateral flank tenderness. SKIN: Acyanotic, warm, dry, without rashes EXTREMITIES: Without swelling, tenderness or deformity NEUROLOGICAL: No focal deficits. No aphasia. No facial droop or slurred speech. GCS 15. Patient's laboratory studies and imaging reviewed. Differential includes Fracture, dislocation, contusion, intra-abdominal, pneumothorax, intrathoracic, intracranial, neurologic, compartment syndrome, rhabdomyolysis, as well as other pathologies. 3 view left knee x-ray primary to procedure: No evidence of fracture or dislocation. IMPRESSION/MEDICAL DECISION MAKING: Patient with a fall last night and then get today. Unfortunately with some memory issues and in the memory unit. No reported LOC or significant anticoagulation. Doubt any jaw fracture given her exam and no evidence of acute dental injury or septal hematoma. Following commands. Little bit of chest wall discomfort. CT scan of the head, cervical spine, and chest obtained. Doubt any significant facial fractures will defer scan here. Discussed with daughter no further blood work at this time given the patient's goals of care. Doubt this is an acute cardiac and stat evaluation for cardiac issues. Some concern for possible UTI and urine sample was sent. X-ray of the left knee with some slight tenderness contusion here without evidence of fracture. CT reports per radiology with evidence of acute fractures likely more musculoskeletal. Discussed with the physician learning support assistant [place] for repair of a lip laceration of the right lower lip. Tetanus update to be given. Additional discussed with the patient daughter at bedside. Given the several falls patient's daughter wishes for her to be transition to [facility]. She states he is already called them about this process. Does not feel that the patient safe to return to [facility] at this time. Discussed with our case management team here about the possibilities for this but given the hour the night and insurance requirements informed this would not immediately be possible. Basic blood work and EKG were ordered as well as a COVID test with anticipation of admission pending placement. Hospitalist contacted for evaluation given need for placement. Also incidentally noted with concerning urinalysis will cover with antibiotics pending culture. DIAGNOSIS: Falls, lip laceration, acute UTI DISPOSITION: Hospitalist will evaluate Past Med/Surg History Medical History (Updated 03/02/23 @ 00:04 by Donte Hale M.D.) Alzheimer disease "probable" poor historian Anxiety Chronic back pain Hearing deficit History of anesthesia reaction very confused with anesthesia Hypothyroidism Leg length discrepancy Lumbar compression fracture Osteoarthritis Osteoporosis Sacroiliitis Spinal stenosis Spinal stenosis of lumbar region Stroke listed on past problem list/ pts daughter states it was Not stroke/ just symptoms associated with the SVT which has now been corrected with ablation Surgical History (System 02/16/20 @ 13:12 by Salome Keller) H/O cardiac radiofrequency ablation 2016/ sue/ sees Dr. Gomez/ had for "irregular heartbeat" no more issues with it History of ankle surgery pt unsure which side History of colonoscopy History of hysterectomy History of thyroidectomy History of tonsillectomy Family History (System 02/16/20 @ 13:12 by Salome Keller) Father Coronary heart disease Cardiac disorder Hypertension Mother Diabetes Lymphoma Heart problem Social History (System 02/16/20 @ 13:12 by Salome Keller) Smoking Status: Never smoker Second Hand Exposure: No; Do You Dip or Chew Tobacco: No; Hx Alcohol Use: No Hx Substance Use: No Preferred Language: Pashto Communication Ability: Impaired Rn Intake Required: No Beliefs That Will Affect Care: None Current Living Situation: Other Current Living Situation Comment: [place] Feels Safe at Home: Yes Assistive Devices: None Allergies Allergies Allergy/AdvReac Type Severity Reaction Status Date / Time mercury (elemental) Allergy Unknown Hives Verified 02/16/20 13:12 codeine AdvReac Unknown Gastrointestinal Verified 02/16/20 13:12 Upset Home Meds Home Medications Medication Instructions Recorded Confirmed levothyroxine 75 mcg tablet 75 mcg PO QAM 06/13/19 01/13/20 paroxetine HCl 30 mg tablet 30 mg PO QPM 06/13/19 01/13/20 atenolol 25 mg tablet 12.5 mg PO DAILY 01/13/20 01/13/20 multivitamin 1 tab PO DAILY 01/13/20 01/13/20 Previous Rx's Medication Instructions Recorded cholecalciferol (vitamin D3) 25 2,000 unit PO QAM #60 caps 01/15/20 mcg (1,000 unit) capsule tramadol 50 mg tablet 25 - 50 mg PO Q6H PRN pain #30 tabs 01/15/20 quetiapine 25 mg tablet 25 mg PO BID 30 days #60 tabs 02/27/23 Results & Data (ED) Vital Signs Vital Signs - 24 hr 03/01/23 18:40 03/01/23 18:52 03/01/23 19:23 Temperature 36.9 C Temperature Source Oral Pulse Rate 71 69 Pulse Rate [Bilateral] 72 Pulse Rate from SpO2 Sensor Pulse Rhythm [Bilateral] Regular Pulse Strength [Bilateral] Respiratory Rate 18 18 Respiratory Effort / Characteristics Non-Labored Spontaneous Respiratory Depth Normal Respiratory Pattern Blood Pressure 172/74 H Blood Pressure [Right Arm] 158/97 H Blood Pressure Mean 106 Blood Pressure Mean [Right Arm] 117 Blood Pressure Position [Right Arm] Pulse Oximetry 97 95 Oxygen Delivery Method Room Air Sepsis Recent Fever Within 48 Hours No Sepsis New/Unexplained Change in Mental Status N/A Sepsis Action Taken by Nursing No Action Required 03/01/23 21:00 03/01/23 22:53 03/01/23 18:49 Temperature Temperature Source Pulse Rate 69 70 Pulse Rate [Bilateral] 71 Pulse Rate from SpO2 Sensor 70 Pulse Rhythm [Bilateral] Regular Pulse Strength [Bilateral] Normal Respiratory Rate 16 8 L Respiratory Effort / Characteristics Non-Labored Spontaneous Respiratory Depth Normal Respiratory Pattern Regular Blood Pressure Blood Pressure [Right Arm] 190/99 H Blood Pressure Mean Blood Pressure Mean [Right Arm] 129 Blood Pressure Position [Right Arm] Semi-fowlers Pulse Oximetry 96 96 Oxygen Delivery Method Room Air Sepsis Recent Fever Within 48 Hours Sepsis New/Unexplained Change in Mental Status Sepsis Action Taken by Nursing 03/01/23 18:50 03/01/23 19:00 03/01/23 19:14 Temperature Temperature Source Pulse Rate 71 74 72 Pulse Rate [Bilateral] Pulse Rate from SpO2 Sensor 69 72 Pulse Rhythm [Bilateral] Pulse Strength [Bilateral] Respiratory Rate 7 L 16 12 Respiratory Effort / Characteristics Respiratory Depth Respiratory Pattern Blood Pressure Blood Pressure [Right Arm] Blood Pressure Mean Blood Pressure Mean [Right Arm] Blood Pressure Position [Right Arm] Pulse Oximetry 98 92 Oxygen Delivery Method Sepsis Recent Fever Within 48 Hours Sepsis New/Unexplained Change in Mental Status Sepsis Action Taken by Nursing 03/01/23 19:20 03/01/23 19:20 03/01/23 19:27 Temperature Temperature Source Pulse Rate 68 Pulse Rate [Bilateral] Pulse Rate from SpO2 Sensor 67 Pulse Rhythm [Bilateral] Pulse Strength [Bilateral] Respiratory Rate 16 Respiratory Effort / Characteristics Respiratory Depth Respiratory Pattern Blood Pressure 158/97 H 155/76 H Blood Pressure [Right Arm] Blood Pressure Mean 129 100 Blood Pressure Mean [Right Arm] Blood Pressure Position [Right Arm] Pulse Oximetry 97 Oxygen Delivery Method Sepsis Recent Fever Within 48 Hours Sepsis New/Unexplained Change in Mental Status Sepsis Action Taken by Nursing 03/01/23 19:27 03/01/23 19:30 03/01/23 19:30 Temperature Temperature Source Pulse Rate 70 72 Pulse Rate [Bilateral] Pulse Rate from SpO2 Sensor 70 72 Pulse Rhythm [Bilateral] Pulse Strength [Bilateral] Respiratory Rate 18 18 Respiratory Effort / Characteristics Respiratory Depth Respiratory Pattern Blood Pressure 186/115 H Blood Pressure [Right Arm] Blood Pressure Mean 117 Blood Pressure Mean [Right Arm] Blood Pressure Position [Right Arm] Pulse Oximetry 97 94 Oxygen Delivery Method Sepsis Recent Fever Within 48 Hours Sepsis New/Unexplained Change in Mental Status Sepsis Action Taken by Nursing 03/01/23 19:40 03/01/23 19:50 03/01/23 20:00 Temperature Temperature Source Pulse Rate 69 68 Pulse Rate [Bilateral] Pulse Rate from SpO2 Sensor Pulse Rhythm [Bilateral] Pulse Strength [Bilateral] Respiratory Rate 16 17 Respiratory Effort / Characteristics Respiratory Depth Respiratory Pattern Blood Pressure 152/93 H Blood Pressure [Right Arm] Blood Pressure Mean 110 Blood Pressure Mean [Right Arm] Blood Pressure Position [Right Arm] Pulse Oximetry Oxygen Delivery Method Sepsis Recent Fever Within 48 Hours Sepsis New/Unexplained Change in Mental Status Sepsis Action Taken by Nursing 03/01/23 20:00 03/01/23 20:10 03/01/23 20:20 Temperature Temperature Source Pulse Rate 68 67 67 Pulse Rate [Bilateral] Pulse Rate from SpO2 Sensor Pulse Rhythm [Bilateral] Pulse Strength [Bilateral] Respiratory Rate 11 L 16 13 Respiratory Effort / Characteristics Respiratory Depth Respiratory Pattern Blood Pressure Blood Pressure [Right Arm] Blood Pressure Mean Blood Pressure Mean [Right Arm] Blood Pressure Position [Right Arm] Pulse Oximetry Oxygen Delivery Method Sepsis Recent Fever Within 48 Hours Sepsis New/Unexplained Change in Mental Status Sepsis Action Taken by Nursing 03/01/23 20:27 03/01/23 20:47 03/01/23 20:48 Temperature Temperature Source Pulse Rate 68 69 Pulse Rate [Bilateral] Pulse Rate from SpO2 Sensor Pulse Rhythm [Bilateral] Pulse Strength [Bilateral] Respiratory Rate 20 11 L Respiratory Effort / Characteristics Respiratory Depth Respiratory Pattern Blood Pressure 184/90 H Blood Pressure [Right Arm] Blood Pressure Mean 139 Blood Pressure Mean [Right Arm] Blood Pressure Position [Right Arm] Pulse Oximetry Oxygen Delivery Method Sepsis Recent Fever Within 48 Hours Sepsis New/Unexplained Change in Mental Status Sepsis Action Taken by Nursing 03/01/23 20:50 03/01/23 21:00 03/01/23 21:00 Temperature Temperature Source Pulse Rate 70 70 Pulse Rate [Bilateral] Pulse Rate from SpO2 Sensor 69 Pulse Rhythm [Bilateral] Pulse Strength [Bilateral] Respiratory Rate 19 11 L Respiratory Effort / Characteristics Respiratory Depth Respiratory Pattern Blood Pressure 190/99 H Blood Pressure [Right Arm] Blood Pressure Mean 105 Blood Pressure Mean [Right Arm] Blood Pressure Position [Right Arm] Pulse Oximetry 97 Oxygen Delivery Method Sepsis Recent Fever Within 48 Hours Sepsis New/Unexplained Change in Mental Status Sepsis Action Taken by Nursing 03/01/23 21:10 03/01/23 21:20 03/01/23 21:30 Temperature Temperature Source Pulse Rate 72 67 74 Pulse Rate [Bilateral] Pulse Rate from SpO2 Sensor 72 67 Pulse Rhythm [Bilateral] Pulse Strength [Bilateral] Respiratory Rate 15 9 L 17 Respiratory Effort / Characteristics Respiratory Depth Respiratory Pattern Blood Pressure Blood Pressure [Right Arm] Blood Pressure Mean Blood Pressure Mean [Right Arm] Blood Pressure Position [Right Arm] Pulse Oximetry 100 94 Oxygen Delivery Method Sepsis Recent Fever Within 48 Hours Sepsis New/Unexplained Change in Mental Status Sepsis Action Taken by Nursing 03/01/23 21:31 03/01/23 21:31 03/01/23 21:40 Temperature Temperature Source Pulse Rate 72 65 Pulse Rate [Bilateral] Pulse Rate from SpO2 Sensor Pulse Rhythm [Bilateral] Pulse Strength [Bilateral] Respiratory Rate 29 H 21 Respiratory Effort / Characteristics Respiratory Depth Respiratory Pattern Blood Pressure 198/111 H Blood Pressure [Right Arm] Blood Pressure Mean 121 Blood Pressure Mean [Right Arm] Blood Pressure Position [Right Arm] Pulse Oximetry Oxygen Delivery Method Sepsis Recent Fever Within 48 Hours Sepsis New/Unexplained Change in Mental Status Sepsis Action Taken by Nursing 03/01/23 21:48 03/01/23 21:48 03/01/23 21:50 Temperature Temperature Source Pulse Rate 67 68 Pulse Rate [Bilateral] Pulse Rate from SpO2 Sensor Pulse Rhythm [Bilateral] Pulse Strength [Bilateral] Respiratory Rate 15 17 Respiratory Effort / Characteristics Respiratory Depth Respiratory Pattern Blood Pressure 173/94 H Blood Pressure [Right Arm] Blood Pressure Mean 146 Blood Pressure Mean [Right Arm] Blood Pressure Position [Right Arm] Pulse Oximetry Oxygen Delivery Method Sepsis Recent Fever Within 48 Hours Sepsis New/Unexplained Change in Mental Status Sepsis Action Taken by Nursing 03/01/23 22:00 03/01/23 22:00 03/01/23 22:10 Temperature Temperature Source Pulse Rate 68 70 Pulse Rate [Bilateral] Pulse Rate from SpO2 Sensor Pulse Rhythm [Bilateral] Pulse Strength [Bilateral] Respiratory Rate 12 18 Respiratory Effort / Characteristics Respiratory Depth Respiratory Pattern Blood Pressure 131/97 Blood Pressure [Right Arm] Blood Pressure Mean 113 Blood Pressure Mean [Right Arm] Blood Pressure Position [Right Arm] Pulse Oximetry Oxygen Delivery Method Sepsis Recent Fever Within 48 Hours Sepsis New/Unexplained Change in Mental Status Sepsis Action Taken by Nursing 03/01/23 22:20 03/01/23 22:30 03/01/23 22:30 Temperature Temperature Source Pulse Rate 66 66 Pulse Rate [Bilateral] Pulse Rate from SpO2 Sensor Pulse Rhythm [Bilateral] Pulse Strength [Bilateral] Respiratory Rate 17 12 Respiratory Effort / Characteristics Respiratory Depth Respiratory Pattern Blood Pressure 182/89 H Blood Pressure [Right Arm] Blood Pressure Mean 112 Blood Pressure Mean [Right Arm] Blood Pressure Position [Right Arm] Pulse Oximetry Oxygen Delivery Method Sepsis Recent Fever Within 48 Hours Sepsis New/Unexplained Change in Mental Status Sepsis Action Taken by Nursing 03/01/23 22:40 03/01/23 22:50 03/01/23 23:00 Temperature Temperature Source Pulse Rate 73 69 69 Pulse Rate [Bilateral] Pulse Rate from SpO2 Sensor Pulse Rhythm [Bilateral] Pulse Strength [Bilateral] Respiratory Rate 15 15 22 Respiratory Effort / Characteristics Respiratory Depth Respiratory Pattern Blood Pressure Blood Pressure [Right Arm] Blood Pressure Mean Blood Pressure Mean [Right Arm] Blood Pressure Position [Right Arm] Pulse Oximetry Oxygen Delivery Method Sepsis Recent Fever Within 48 Hours Sepsis New/Unexplained Change in Mental Status Sepsis Action Taken by Nursing 03/01/23 23:10 03/01/23 23:12 03/01/23 23:12 Temperature Temperature Source Pulse Rate 71 72 Pulse Rate [Bilateral] Pulse Rate from SpO2 Sensor Pulse Rhythm [Bilateral] Pulse Strength [Bilateral] Respiratory Rate 17 12 Respiratory Effort / Characteristics Respiratory Depth Respiratory Pattern Blood Pressure 172/97 H Blood Pressure [Right Arm] Blood Pressure Mean 142 Blood Pressure Mean [Right Arm] Blood Pressure Position [Right Arm] Pulse Oximetry Oxygen Delivery Method Sepsis Recent Fever Within 48 Hours Sepsis New/Unexplained Change in Mental Status Sepsis Action Taken by Nursing 03/01/23 23:20 03/01/23 23:30 Temperature Temperature Source Pulse Rate 68 76 Pulse Rate [Bilateral] Pulse Rate from SpO2 Sensor 69 75 Pulse Rhythm [Bilateral] Pulse Strength [Bilateral] Respiratory Rate 18 18 Respiratory Effort / Characteristics Respiratory Depth Respiratory Pattern Blood Pressure Blood Pressure [Right Arm] Blood Pressure Mean Blood Pressure Mean [Right Arm] Blood Pressure Position [Right Arm] Pulse Oximetry 96 95 Oxygen Delivery Method Sepsis Recent Fever Within 48 Hours Sepsis New/Unexplained Change in Mental Status Sepsis Action Taken by Nursing Laboratory Data 03/01/23 23:01 03/01/23 23:01 Lab Results 03/01/23 03/01/23 03/01/23 Range/Units 21:38 23:01 23:01 WBC 10.75 (4.8-10.8) K/ul RBC 4.54 (4.20-5.40) M/uL Hgb 14.0 (12.0-16.0) g/dl Hct 41.9 (37.0-47.0) % MCV 92.3 (80.0-100.0) fL MCH 30.8 (25.0-34.0) pg MCHC 33.4 (32.0-36.0) g/dL RDW Std Deviation 47.4 H (36.4-46.3) fL RDW Coeff of Ruiz 13.9 (11.5-14.5) % Plt Count 244 (130-400) K/uL MPV 11.0 (9.4-12.4) fL Immature Gran % (Auto) 0.7 % Neut % (Auto) 72.3 % Lymph % (Auto) 13.8 % [place] % (Auto) 11.8 % Eos % (Auto) 0.8 % Baso % (Auto) 0.6 % Neut # (Auto) 7.78 H (1.40-6.50) K/uL Lymph # (Auto) 1.48 (1.2-3.4) K/uL [place] # (Auto) 1.27 H (0.11-0.59) K/uL Eos # (Auto) 0.09 (0-0.50) K/uL Baso # (Auto) 0.06 (0-0.2) K/uL Immature Gran # (Auto) 0.07 (0.01-0.20) K/uL PT 10.7 (9.0-12.0) Seconds INR 1.0 (0.9-1.1) Sodium (136-145) mmol/L Potassium (3.5-5.1) mmol/L Chloride (98-107) mmol/L Carbon Dioxide (21-32) mmol/L Anion Gap (3-11) BUN (6-23) mg/dl Creatinine (0.6-1.2) mg/dl Est Cr Clr Drug Dosing ml/min Est GFR ( Amer) ml/min Est GFR (Non-Af Amer) ml/min BUN/Creatinine Ratio (10-20) Glucose (70-99(Fasting)) mg/dl Calcium (8.6-10.3) mg/dl Total Bilirubin (0.2-1.0) mg/dl AST (13-39) U/L ALT (7-52) U/L Alkaline Phosphatase (34-104) U/L Troponin I High Sens (0-14) pg/ml Total Protein (6.0-8.3) gm/dl Albumin (3.4-5.0) gm/dl Globulin (2.5-4.0) gm/dl Albumin/Globulin Ratio (0.9-2) Urine Color Yellow Urine Appearance Cloudy A (Clear) Urine pH 7.0 (4.5-7.5) Ur Specific [place] 1.015 (1.000-1.030) Urine Protein Negative (Negative) Urine Glucose (UA) Negative (Negative) Urine Ketones Negative (Negative) Urine Blood Trace H (Negative) Urine Nitrite Negative (Negative) Urine Bilirubin Negative (Negative) Urine Urobilinogen Negative (Negative) Ur Leukocyte Esterase 2+ H (Negative) Urine WBC (Auto) 10-30 H (0-5) /hpf Urine RBC (Auto) 5-10 H (0-4) /hpf U Hyaline Cast (Auto) 1-5 (0-5) /lpf U Epithel Cells (Auto) 5-10 H (0-5) /lpf Urine Bacteria (Auto) 2+ H (Negative) 03/01/23 Range/Units 23:01 WBC (4.8-10.8) K/ul RBC (4.20-5.40) M/uL Hgb (12.0-16.0) g/dl Hct (37.0-47.0) % MCV (80.0-100.0) fL MCH (25.0-34.0) pg MCHC (32.0-36.0) g/dL RDW Std Deviation (36.4-46.3) fL RDW Coeff of Ruiz (11.5-14.5) % Plt Count (130-400) K/uL MPV (9.4-12.4) fL Immature Gran % (Auto) % Neut % (Auto) % Lymph % (Auto) % [place] % (Auto) % Eos % (Auto) % Baso % (Auto) % Neut # (Auto) (1.40-6.50) K/uL Lymph # (Auto) (1.2-3.4) K/uL [place] # (Auto) (0.11-0.59) K/uL Eos # (Auto) (0-0.50) K/uL Baso # (Auto) (0-0.2) K/uL Immature Gran # (Auto) (0.01-0.20) K/uL PT (9.0-12.0) Seconds INR (0.9-1.1) Sodium 138 (136-145) mmol/L Potassium 4.1 (3.5-5.1) mmol/L Chloride 102 (98-107) mmol/L Carbon Dioxide 28 (21-32) mmol/L Anion Gap 8 (3-11) BUN 25 H (6-23) mg/dl Creatinine 0.83 (0.6-1.2) mg/dl Est Cr Clr Drug Dosing 45.9 ml/min Est GFR ( Amer) 76.6 ml/min Est GFR (Non-Af Amer) 66.1 ml/min BUN/Creatinine Ratio 30.1 H (10-20) Glucose 98 (70-99(Fasting)) mg/dl Calcium 9.4 (8.6-10.3) mg/dl Total Bilirubin 0.8 (0.2-1.0) mg/dl AST 42 H (13-39) U/L ALT 33 (7-52) U/L Alkaline Phosphatase 56 (34-104) U/L Troponin I High Sens 15.3 H (0-14) pg/ml Total Protein 7.9 (6.0-8.3) gm/dl Albumin 3.7 (3.4-5.0) gm/dl Globulin 4.2 H (2.5-4.0) gm/dl Albumin/Globulin Ratio 0.9 (0.9-2) Urine Color Urine Appearance (Clear) Urine pH (4.5-7.5) Ur Specific [place] (1.000-1.030) Urine Protein (Negative) Urine Glucose (UA) (Negative) Urine Ketones (Negative) Urine Blood (Negative) Urine Nitrite (Negative) Urine Bilirubin (Negative) Urine Urobilinogen (Negative) Ur Leukocyte Esterase (Negative) Urine WBC (Auto) (0-5) /hpf Urine RBC (Auto) (0-4) /hpf U Hyaline Cast (Auto) (0-5) /lpf U Epithel Cells (Auto) (0-5) /lpf Urine Bacteria (Auto) (Negative) Administered Medications Discontinued Medications Diphtheria/Pertussis/Tetanus Vacc (Diphtheria/Tetanus/Pertussis Vaccine (Tdap, Age 7+Yrs) 0.5ml Syr/Vl) 0.5 ml IM .ONCE ONE Stop: 03/01/23 21:42 Last Admin: 03/01/23 22:11 Dose: 0.5 ml Documented By: PETER Lidocaine HCl (Xylocaine 1%/Sod Bicarb 20 Ml Vial) 20 ml INFIL NOW ONE Stop: 03/01/23 22:13 Last Admin: 03/01/23 22:18 Dose: 5 ml Documented By: PETER Imaging Data Radiologist's Impression: Cervical Spine CT 03/01/23 19:46 Exam(s): CT C SPINE EXAM: CT Cervical Spine Without Intravenous Contrast CLINICAL HISTORY: Reason for exam: fall. TECHNIQUE: Axial computed tomography images of the cervical spine without intravenous contrast. CTDI is 22.7 mGy and DLP is 434.38 mGy-cm. Automated exposure control was utilized for the study. A dose lowering technique was utilized adhering to the principles of ALARA. COMPARISON: 01/15/2020 FINDINGS: No fracture or subluxations are noted. The vertebral body heights and alignment are preserved. No prevertebral soft tissue swelling. Note is made of multilevel cervical spondylosis with varying degrees of central canal and foramina stenoses.. Grade 1 retrolisthesis of C3 on C4 likely on a degenerative basis. IMPRESSION: 1. No cervical fractures. 2. Cervical spondylosis with varying degrees of central canal and foramina stenoses. Electronically signed by: Tomasz Glaser MD 03/01/23 21:[address] 03/01/23 19:46 Exam(s): CT CHEST Without Contrast EXAM: CT Chest Without Intravenous Contrast CLINICAL HISTORY: Reason for exam: fall, sternal pain. TECHNIQUE: Axial computed tomography images of the chest without intravenous contrast. Automated exposure control was utilized for the study. A dose lowering technique was utilized adhering to the principles of ALARA. COMPARISON: No relevant prior studies available. FINDINGS: Lungs: Unremarkable. No mass. No consolidation. Pleural space: Unremarkable. No pneumothorax. No significant effusion. Heart: Cardiomegaly. Coronary artery calcification. No significant pericardial effusion. Bones/joints: Unremarkable. No acute fracture. No dislocation. Soft tissues: Unremarkable. Vasculature: See above. Lymph nodes: Unremarkable. No enlarged lymph nodes. IMPRESSION: No acute findings in the chest. Electronically signed by: Tomasz Glaser MD 03/01/23 21:[address] 03/01/23 19:46 Exam(s): CT HEAD Without Contrast EXAM: CT Head Without Intravenous Contrast CLINICAL HISTORY: Reason for exam: fall. TECHNIQUE: Axial computed tomography images of the head/brain without intravenous contrast. CTDI is 35.79 mGy and DLP is 624.41 mGy-cm. Automated exposure control was utilized for the study. A dose lowering technique was utilized adhering to the principles of ALARA. COMPARISON: 01/13/2021 FINDINGS: Brain: Unremarkable. No hemorrhage. Mild ischemic microangiopathy. Age appropriate cerebral volume loss Ventricles: Unremarkable. No ventriculomegaly. Bones/joints: Unremarkable. No acute fracture. Soft tissues: Unremarkable. Sinuses: Unremarkable as visualized. No acute sinusitis. Mastoid air cells: Unremarkable as visualized. No mastoid effusion. IMPRESSION: head CT negative for acute intracranial abnormality Electronically signed by: Tomasz Glaser MD 03/01/23 21:17 PM Discharge Plan Visit Data Chief Complaint: Fall Stated Complaint: FALL, LIP LAC ED Provider: Donte Hale Discharge Problem: Fall, Dementia, Laceration of lip, Knee pain, left, Acute UTI Patient Disposition: Being Evaluated by Hospitalist Forms Stand Alone Forms: [facility] - [place] [facility] Prescriptions: No Action paroxetine HCl 30 mg tablet 30 mg PO QPM levothyroxine 75 mcg tablet 75 mcg PO QAM multivitamin Tablet 1 tab PO DAILY atenolol 25 mg tablet 12.5 mg PO DAILY tramadol 50 mg Tablet 25 - 50 mg PO Q6H PRN (Reason: pain) Qty: 30 0RF cholecalciferol (vitamin D3) 25 mcg (1,000 unit) Capsule 2,000 unit PO QAM Qty: 60 2RF quetiapine 25 mg Tablet 25 mg PO BID 30 Days Qty: 60 0RF Referrals Referrals: Kasandra beeSheffield [Primary Care Provider] -
--- NOTE | 2023-03-01 20:06 | Emergency Department Note ---
ED Visit Note I was asked by Dr. Hale, ED team physician, to perform a lower lip laceration repair. Please see his dictation for further treatment and final disposition. PROCEDURE NOTE: Examination of the right lower lip region shows a 1.25 cm laceration that closely approximates, but does not cross the vermilion border. No active bleeding noted. The patient and daughter provides verbal consent for laceration repair under local anesthesia. Using buffered lidocaine 1% without epinephrine, good local anesthesia was administered. Peripheral tissue was then cleansed with a diluted solution of iodine and normal saline, then the wound was lightly irrigated with normal saline. Exploration of the wound does not show any underlying debris. In sterile fashion, the wound was then approximated using 6-0 Vicryl simple interrupted and inverted sutures x4. The patient tolerated the procedure well without any significant bleeding. .
--- NOTE | 2023-03-01 21:19 | CT Scan Report ---
Exam(s): CT HEAD Without Contrast EXAM: CT Head Without Intravenous Contrast CLINICAL HISTORY: Reason for exam: fall. TECHNIQUE: Axial computed tomography images of the head/brain without intravenous contrast. CTDI is 35.79 mGy and DLP is 624.41 mGy-cm. Automated exposure control was utilized for the study. A dose lowering technique was utilized adhering to the principles of ALARA. COMPARISON: 01/13/2021 FINDINGS: Brain: Unremarkable. No hemorrhage. Mild ischemic microangiopathy. Age appropriate cerebral volume loss Ventricles: Unremarkable. No ventriculomegaly. Bones/joints: Unremarkable. No acute fracture. Soft tissues: Unremarkable. Sinuses: Unremarkable as visualized. No acute sinusitis. Mastoid air cells: Unremarkable as visualized. No mastoid effusion. IMPRESSION: head CT negative for acute intracranial abnormality Electronically signed by: Tomasz Glaser MD 03/01/23 21:17 PM
--- NOTE | 2023-03-01 21:25 | CT Scan Report ---
Exam(s): CT C SPINE EXAM: CT Cervical Spine Without Intravenous Contrast CLINICAL HISTORY: Reason for exam: fall. TECHNIQUE: Axial computed tomography images of the cervical spine without intravenous contrast. CTDI is 22.7 mGy and DLP is 434.38 mGy-cm. Automated exposure control was utilized for the study. A dose lowering technique was utilized adhering to the principles of ALARA. COMPARISON: 01/15/2020 FINDINGS: No fracture or subluxations are noted. The vertebral body heights and alignment are preserved. No prevertebral soft tissue swelling. Note is made of multilevel cervical spondylosis with varying degrees of central canal and foramina stenoses.. Grade 1 retrolisthesis of C3 on C4 likely on a degenerative basis. IMPRESSION: 1. No cervical fractures. 2. Cervical spondylosis with varying degrees of central canal and foramina stenoses. Electronically signed by: Tomasz Glaser MD 03/01/23 21:24 PM
--- NOTE | 2023-03-01 21:28 | CT Scan Report ---
Exam(s): CT CHEST Without Contrast EXAM: CT Chest Without Intravenous Contrast CLINICAL HISTORY: Reason for exam: fall, sternal pain. TECHNIQUE: Axial computed tomography images of the chest without intravenous contrast. Automated exposure control was utilized for the study. A dose lowering technique was utilized adhering to the principles of ALARA. COMPARISON: No relevant prior studies available. FINDINGS: Lungs: Unremarkable. No mass. No consolidation. Pleural space: Unremarkable. No pneumothorax. No significant effusion. Heart: Cardiomegaly. Coronary artery calcification. No significant pericardial effusion. Bones/joints: Unremarkable. No acute fracture. No dislocation. Soft tissues: Unremarkable. Vasculature: See above. Lymph nodes: Unremarkable. No enlarged lymph nodes. IMPRESSION: No acute findings in the chest. Electronically signed by: Tomasz Glaser MD 03/01/23 21:27 PM
[2023-03-01] MEDS ORDERED: DIPHTHERIA/TETANUS/PERTUSSIS Vaccine (Tdap, Age 7+yrs) 0.5mL SYR/VL IM ONE (21:41)
[2023-03-01] MEDS ORDERED: XYLOCAINE 1%/SOD BICARB 20 ML VIAL INFIL ONE (22:12)
[2023-03-01 22:13] LABS: Appearance Urine Cloudy (Clear); Bilirubin Urine Negative (Negative); Blood Urine Trace (Negative); Color Urine Yellow; Glucose Urine UA Negative (Negative); Ketones Urine Negative (Negative); Leukocyte Esterase Urine 2+ (Negative); Nitrite Urine Negative (Negative); Protein Urine Negative (Negative); Specific Gravity Urine 1.015 (1.000-1.030); Urobilinogen Urine Negative (Negative)
[2023-03-01 22:29] LABS: Bacteria Urine Automated 2+ (Negative)
[2023-03-01 23:33] LABS: Basophils # (auto) 0.06 K/uL (0-0.2); Basophils % (auto) 0.6 %; Eosinophils # (auto) 0.09 K/uL (0-0.50); Eosinophils % (auto) 0.8 %; Hematocrit (blood only) 41.9 % (37.0-47.0); Immature Granulocytes # (auto) 0.07 K/uL (0.01-0.20); Immature Granulocytes % (auto) 0.7 %; Lymphocytes # (auto) 1.48 K/uL (1.2-3.4); Lymphocytes % (auto) 13.8 %; Mean Corpuscular Hemoglobin 30.8 pg (25.0-34.0); Mean Corpuscular Hgb Conc 33.4 g/dL (32.0-36.0); Mean Corpuscular Volume 92.3 fL (80.0-100.0); Monocytes # (auto) 1.27 K/uL (0.11-0.59); Monocytes % (auto) 11.8 %; Neutrophils # (auto) 7.78 K/uL (1.40-6.50); Neutrophils % (auto) 72.3 %; Platelet Count 244 K/uL (130-400); RDW Coefficient of Variation 13.9 % (11.5-14.5); RDW Standard Deviation 47.4 fL (36.4-46.3); Red Blood Count 4.54 M/uL (4.20-5.40); White Blood Count 10.75 K/ul (4.8-10.8)
[2023-03-01 23:46] LABS: Albumin Globulin Ratio 0.9 (0.9-2); Albumin Level 3.7 gm/dl (3.4-5.0); BUN Creatinine Ratio 30.1 (10-20); Bilirubin,Total 0.8 mg/dl (0.2-1.0); Calcium 9.4 mg/dl (8.6-10.3); Creatinine Clr Calc Pharmacy 45.9 ml/min; Est GFR (African American) 76.6 ml/min; Est GFR (Non-African American) 66.1 ml/min; Globulin 4.2 gm/dl (2.5-4.0); Potassium 4.1 mmol/L (3.5-5.1); Total Protein 7.9 gm/dl (6.0-8.3)
--- NOTE | 2023-03-01 23:50 | History & Physical Report ---
Date of Service March 01, 2023 History of Present Illness Primary Care Provider: [facility] Allergies Allergy/AdvReac Type Severity Reaction Status Date / Time mercury (elemental) Allergy Unknown Hives Verified 02/16/20 13:12 codeine AdvReac Unknown Gastrointestinal Verified 02/16/20 13:12 Upset Home Medications Medication Instructions Recorded Confirmed Type levothyroxine 75 mcg tablet 75 mcg PO QAM 06/13/19 01/13/20 History paroxetine HCl 30 mg tablet 30 mg PO QPM 06/13/19 01/13/20 History atenolol 25 mg tablet 12.5 mg PO DAILY 01/13/20 01/13/20 History multivitamin 1 tab PO DAILY 01/13/20 01/13/20 History cholecalciferol (vitamin D3) 25 2,000 unit PO QAM #60 caps 01/15/20 Rx mcg (1,000 unit) capsule tramadol 50 mg tablet 25 - 50 mg PO Q6H PRN pain #30 tabs 01/15/20 Rx quetiapine 25 mg tablet 25 mg PO BID 30 days #60 tabs 02/27/23 Rx Past Med/Surg History Medical History (Updated 03/01/23 @ 21:56 by Donte Hale M.D.) Alzheimer disease "probable" poor historian Anxiety Chronic back pain Hearing deficit History of anesthesia reaction very confused with anesthesia Hypothyroidism Leg length discrepancy Lumbar compression fracture Osteoarthritis Osteoporosis Sacroiliitis Spinal stenosis Spinal stenosis of lumbar region Stroke listed on past problem list/ pts daughter states it was Not stroke/ just symptoms associated with the SVT which has now been corrected with ablation Surgical History (System 02/16/20 @ 13:12 by Salome Keller) H/O cardiac radiofrequency ablation 2016/ sue/ sees Dr. Gomez/ had for "irregular heartbeat" no more issues with it History of ankle surgery pt unsure which side History of colonoscopy History of hysterectomy History of thyroidectomy History of tonsillectomy Family History (System 02/16/20 @ 13:12 by Salome Keller) Father Coronary heart disease Cardiac disorder Hypertension Mother Diabetes Lymphoma Heart problem Social History (System 02/16/20 @ 13:12 by Salome Keller) Smoking Status: Never smoker Second Hand Exposure: No; Do You Dip or Chew Tobacco: No; Hx Alcohol Use: No Hx Substance Use: No Preferred Language: [place] Rican Communication Ability: Impaired Home Improvement Advisor Required: No Beliefs That Will Affect Care: None Current Living Situation: Other Current Living Situation Comment: [place] Feels Safe at Home: Yes Assistive Devices: None Results & Data Results & Data Vital Signs (Past 12 Hours) Vital Signs Temp Pulse Pulse Resp BP BP Pulse Ox 03/01/23 23:30 76 18 95 03/01/23 23:20 68 18 96 03/01/23 23:12 172/97 H 03/01/23 23:12 72 12 03/01/23 23:10 71 17 03/01/23 23:00 69 22 03/01/23 22:50 69 15 03/01/23 22:40 73 15 03/01/23 22:30 66 12 03/01/23 22:30 182/89 H 03/01/23 22:20 66 17 03/01/23 22:10 70 18 03/01/23 22:00 68 12 03/01/23 22:00 131/97 03/01/23 21:50 68 17 03/01/23 21:48 173/94 H 03/01/23 21:48 67 15 03/01/23 21:40 65 21 03/01/23 21:31 72 29 H 03/01/23 21:31 198/111 H 03/01/23 21:30 74 17 03/01/23 21:20 67 9 L 94 03/01/23 21:10 72 15 100 03/01/23 21:00 70 11 L 97 03/01/23 21:00 190/99 H 03/01/23 20:50 70 19 03/01/23 20:48 69 11 L 03/01/23 20:47 184/90 H 03/01/23 20:27 68 20 03/01/23 20:20 67 13 03/01/23 20:10 67 16 03/01/23 20:00 68 11 L 03/01/23 20:00 152/93 H 03/01/23 19:50 68 17 03/01/23 19:40 69 16 03/01/23 19:30 72 18 94 03/01/23 19:30 186/115 H 03/01/23 19:27 70 18 97 03/01/23 19:27 155/76 H 03/01/23 19:20 68 16 97 03/01/23 19:20 158/97 H 03/01/23 19:14 72 12 03/01/23 19:00 74 16 92 03/01/23 18:50 71 7 L 98 03/01/23 18:49 70 8 L 96 03/01/23 22:53 69 03/01/23 21:00 71 16 190/99 H 96 03/01/23 19:23 72 18 158/97 H 95 03/01/23 18:52 69 03/01/23 18:40 36.9 C 71 18 172/74 H 97 O2 Del Method 03/01/23 23:30 03/01/23 23:20 03/01/23 23:12 03/01/23 23:12 03/01/23 23:10 03/01/23 23:00 03/01/23 22:50 03/01/23 22:40 03/01/23 22:30 03/01/23 22:30 03/01/23 22:20 03/01/23 22:10 03/01/23 22:00 03/01/23 22:00 03/01/23 21:50 03/01/23 21:48 03/01/23 21:48 03/01/23 21:40 03/01/23 21:31 03/01/23 21:31 03/01/23 21:30 03/01/23 21:20 03/01/23 21:10 03/01/23 21:00 03/01/23 21:00 03/01/23 20:50 03/01/23 20:48 03/01/23 20:47 03/01/23 20:27 03/01/23 20:20 03/01/23 20:10 03/01/23 20:00 03/01/23 20:00 03/01/23 19:50 03/01/23 19:40 03/01/23 19:30 03/01/23 19:30 03/01/23 19:27 03/01/23 19:27 03/01/23 19:20 03/01/23 19:20 03/01/23 19:14 03/01/23 19:00 03/01/23 18:50 03/01/23 18:49 03/01/23 22:53 03/01/23 21:00 Room Air 03/01/23 19:23 03/01/23 18:52 03/01/23 18:40 Room Air Code Status & VTE Plan VTE Prophylaxis Plan VTE Prophylaxis will be ordered: Yes PG Care Time/CCT Total # of Minutes Spent Total Time Spent with Patient: Total time spent is greater than 50% in coordination of care (as documented) at patient's floor/unit and/or counseling patient: Coding Diagnoses
[2023-03-01 23:52] LABS: Troponin I High Sensitivity 15.3 pg/ml (0-14)
[2023-03-01] MEDS ORDERED: cefTRIAXone SODIUM 2,000 MG/70 ML BAG IV STA (23:53)
[2023-03-01 23:55] LABS: Prothrombin Time 10.7 Seconds (9.0-12.0)
--- NOTE | 2023-03-02 00:10 | History & Physical Report ---
Date of Service March 02, 2023 Assessment & Plan (1) Fall: Plan: 82yo Female with PMH alzheimer's dementia HTN hypothyroidism depression/anxiety, hx heart disease here for fall. Fall -suspicion is mechanical fall -CT head spine thoracic negative -admit to med/tele -ordered PT/OT -PRN tylenol, lidocaine patch for pain UTI -urine culture pending -received rocephin in ED -continue empiric rocephin for now Dementia -continue quetiapine HTN -continue atenolol -partially elevated due to pain Hypothyroidism -continue levothyroxine Depression -continue paroxetine FENa: regular with ensure Code Status: DNR/DNI DVT PPX: SCDs Dispo: med/tele Elma Torres D.O. PGY 3, FCM (2) Laceration of lip: (3) Acute UTI: (4) Dementia: (5) Paroxysmal SVT (supraventricular tachycardia): History of Present Illness Chief Complaint: Fall Primary Care Provider: [facility] 82yo Female with PMH alzheimer's dementia HTN hypothyroidism depression/anxiety, hx heart disease here for fall. Unfortunately patient is a poor historian and is unable to recall the event, history primarily from Daughter. Daughter states patient fell once yesterday morning was found on the ground had pain on back and left knee. She later had a second fall last night leaving the dining room and hit her lip. Patient resides in [facility], per daughter it is understaffed, patient's falls were unwitnessed. At this time patient describes pain in her lip, back, and suprapubic region of abdomen. She denies any headache dizziness fever SOB nausea. States it hurts to pee. Per family they request patient have PT/OT so that she can be in skilled rehab for 2 weeks, patient walks without assistance at baseline but family feels she may need assistive device at this time, thinks her gait and new shoes may have contributed to fall. Family dissatisfied with low staffing at [facility] hope to be able to transfer patient to [facility], possibly [facility]. Patient was recently admitted from 02/27-02/27 for concern chest pain likely to be GERD, attributed to Ensure late at night, plan was to move her Ensure to earlier in the evening. Daughter Ruthy is POA. Allergies Allergy/AdvReac Type Severity Reaction Status Date / Time mercury (elemental) Allergy Unknown Hives Verified 02/16/20 13:12 codeine AdvReac Unknown Gastrointestinal Verified 02/16/20 13:12 Upset Home Medications Medication Instructions Recorded Confirmed Type levothyroxine 75 mcg tablet 75 mcg PO QAM 06/13/19 01/13/20 History paroxetine HCl 30 mg tablet 30 mg PO QPM 06/13/19 01/13/20 History atenolol 25 mg tablet 12.5 mg PO DAILY 01/13/20 01/13/20 History multivitamin 1 tab PO DAILY 01/13/20 01/13/20 History cholecalciferol (vitamin D3) 25 2,000 unit PO QAM #60 caps 01/15/20 Rx mcg (1,000 unit) capsule tramadol 50 mg tablet 25 - 50 mg PO Q6H PRN pain #30 tabs 01/15/20 Rx quetiapine 25 mg tablet 25 mg PO BID 30 days #60 tabs 02/27/23 Rx Past Med/Surg History Medical History (Updated 03/02/23 @ 00:04 by Donte Hale M.D.) Alzheimer disease "probable" poor historian Anxiety Chronic back pain Hearing deficit History of anesthesia reaction very confused with anesthesia Hypothyroidism Leg length discrepancy Lumbar compression fracture Osteoarthritis Osteoporosis Sacroiliitis Spinal stenosis Spinal stenosis of lumbar region Stroke listed on past problem list/ pts daughter states it was Not stroke/ just symptoms associated with the SVT which has now been corrected with ablation Surgical History (System 02/16/20 @ 13:12 by Salome Keller) H/O cardiac radiofrequency ablation 2016/ sue/ sees Dr. Gomez/ had for "irregular heartbeat" no more issues with it History of ankle surgery pt unsure which side History of colonoscopy History of hysterectomy History of thyroidectomy History of tonsillectomy Family History (System 02/16/20 @ 13:12 by Salome Keller) Father Coronary heart disease Cardiac disorder Hypertension Mother Diabetes Lymphoma Heart problem Social History (System 02/16/20 @ 13:12 by Salome Keller) Smoking Status: Never smoker Second Hand Exposure: No; Do You Dip or Chew Tobacco: No; Tobacco Cessation Education Requested by Patient: No Hx Alcohol Use: No Hx Substance Use: No Preferred Language: Malawian Communication Ability: Impaired Apartment House Manager Required: No Beliefs That Will Affect Care: None Current Living Situation: [place] Current Living Situation Comment: [facility] [place] Other Information That Helps Us Care for You: No Feels Safe at Home: Yes Safety Concerns: Feels Safe At This Time Assistive Devices: Cane and Glasses Physical Exam Constitutional: + thin, cooperative and comfortable Eyes: PERRL, conjunctivae normal, anicteric sclerae ENMT: bloody lower lip with stitches present Neck: trachea midline, no thyromegaly Respiratory: normal respiratory effort, lungs clear to auscultation Cardiovascular: RRR, no murmur, no edema Gastrointestinal (Abdomen): Inspection/Auscultation: abdomen normal to inspection Percussion/Palpation: + abdomen tender (suprapubic region) and abd omen soft Skin: some scattered scabs located on patient's upper back, no bruising or ulcers noted on lower back or buttocks, small bruising noted on left anterior knee Psychiatric: Orientation: alert and oriented to person Results & Data Results & Data Vital Signs (Past 12 Hours) Vital Signs Temp Pulse Pulse Resp BP BP Pulse Ox 03/01/23 23:30 76 18 95 03/01/23 23:20 68 18 96 03/01/23 23:12 172/97 H 03/01/23 23:12 72 12 03/01/23 23:10 71 17 03/01/23 23:00 69 22 03/01/23 22:50 69 15 03/01/23 22:40 73 15 03/01/23 22:30 66 12 03/01/23 22:30 182/89 H 03/01/23 22:20 66 17 03/01/23 22:10 70 18 03/01/23 22:00 68 12 03/01/23 22:00 131/97 03/01/23 21:50 68 17 03/01/23 21:48 173/94 H 03/01/23 21:48 67 15 03/01/23 21:40 65 21 03/01/23 21:31 72 29 H 03/01/23 21:31 198/111 H 03/01/23 21:30 74 17 03/01/23 21:20 67 9 L 94 03/01/23 21:10 72 15 100 03/01/23 21:00 70 11 L 97 03/01/23 21:00 190/99 H 03/01/23 20:50 70 19 03/01/23 20:48 69 11 L 03/01/23 20:47 184/90 H 03/01/23 20:27 68 20 03/01/23 20:20 67 13 03/01/23 20:10 67 16 03/01/23 20:00 68 11 L 03/01/23 20:00 152/93 H 03/01/23 19:50 68 17 03/01/23 19:40 69 16 03/01/23 19:30 72 18 94 03/01/23 19:30 186/115 H 03/01/23 19:27 70 18 97 03/01/23 19:27 155/76 H 03/01/23 19:20 68 16 97 03/01/23 19:20 158/97 H 03/01/23 19:14 72 12 03/01/23 19:00 74 16 92 03/01/23 18:50 71 7 L 98 03/01/23 18:49 70 8 L 96 03/01/23 22:53 69 03/01/23 21:00 71 16 190/99 H 96 03/01/23 19:23 72 18 158/97 H 95 03/01/23 18:52 69 03/01/23 18:40 36.9 C 71 18 172/74 H 97 O2 Del Method 03/01/23 23:30 03/01/23 23:20 03/01/23 23:12 03/01/23 23:12 03/01/23 23:10 03/01/23 23:00 03/01/23 22:50 03/01/23 22:40 03/01/23 22:30 03/01/23 22:30 03/01/23 22:20 03/01/23 22:10 03/01/23 22:00 03/01/23 22:00 03/01/23 21:50 03/01/23 21:48 03/01/23 21:48 03/01/23 21:40 03/01/23 21:31 03/01/23 21:31 03/01/23 21:30 03/01/23 21:20 03/01/23 21:10 03/01/23 21:00 03/01/23 21:00 03/01/23 20:50 03/01/23 20:48 03/01/23 20:47 03/01/23 20:27 03/01/23 20:20 03/01/23 20:10 03/01/23 20:00 03/01/23 20:00 03/01/23 19:50 03/01/23 19:40 03/01/23 19:30 03/01/23 19:30 03/01/23 19:27 03/01/23 19:27 03/01/23 19:20 03/01/23 19:20 03/01/23 19:14 03/01/23 19:00 03/01/23 18:50 03/01/23 18:49 03/01/23 22:53 03/01/23 21:00 Room Air 03/01/23 19:23 03/01/23 18:52 03/01/23 18:40 Room Air Code Status & VTE Plan VTE Prophylaxis Plan VTE Prophylaxis will be ordered: Yes Supervising Physician Co-Signing Physician Notes Attending addendum: I have physically seen this patient, have supervised the medical residents activ ities, and agree with the H&P unless as otherwise noted. Assessment and Plan: Status post fall- CT head , cervical and thoracic spine negative Mechanical fall, Consult PT/OT Pain control with acetaminophen 650 mg by mouth every 6 hours as needed mild pain or fever Lidocaine patch Urinary tract infection- Follow urine culture and sensitivity Empiric ceftriaxone IV May have been a contribution factor to above fall Dementia- Continuing quetiapine Hypertension- Continue atenolol with hold parameters Depression- Continue paroxetine Remaining orders and notations as noted Resident Activity Tracking Resident Involvement: Resident Care Provided Care Provided: Adult Hospital Medicine (1) Fall Encounter type: initial encounter Qualified Code(s): W19.XXXA - Unspecified fall, initial encounter (2) Laceration of lip Encounter type: initial encounter Qualified Code(s): S01.511A - Laceration without foreign body of lip, initial encounter (4) Dementia Dementia type: unspecified type
[2023-03-02] MEDS ORDERED: LIDOCAINE 5% 1 PATCH TD SCH (00:30)
[2023-03-02] MEDS ORDERED: ONDANSETRON INJ 2 MG/ML 2 ML VIAL IV PRN (02:14)
[2023-03-02] MEDS ORDERED: SODIUM CHLORIDE 0.9% 1000ML 1,000 ML IV SCH (02:14)
[2023-03-02] MEDS ORDERED: ACETAMINOPHEN 325 MG TAB PO PRN (02:14)
[2023-03-02] MEDS ORDERED: CALCIUM CARBONATE 500 MG CHEWABLE TAB PO PRN (04:09)
[2023-03-02] MEDS ORDERED: QUEtiapine FUMARATE 25 MG TABLET PO ONE (04:12)
[2023-03-02] MEDS: LEVOTHYROXINE SODIUM 75 MCG TABLET PO SCH (06:01)
--- NOTE | 2023-03-02 07:02 | Hospitalist Progress Note ---
Date of Service March 02, 2023 Assessment & Plan (1) Fall: Plan: 82yo Female with PMH alzheimer's dementia HTN hypothyroidism depression/anxiety, hx heart disease here for fall. Fall -mechanism likley mechanical fall -CT head spine thoracic negative -PT/OT -tylenol, lidocaine patch for pain UTI -urine culture pending -received Rocephin in ED -continue empiric Rocephin for now - daughter does note that she has been complaining of urinary symtpoms Dementia -continue quetiapine HTN -continue atenolol Hypothyroidism -continue levothyroxine Depression -continue paroxetine FENa: regular with ensure Code Status: DNR/DNI DVT PPX: SCDs (2) Laceration of lip: (3) Acute UTI: (4) Dementia: (5) Paroxysmal SVT (supraventricular tachycardia): Admission and Anticipated Discharge Date Admission Date: March 01, 2023 Supervising Physician Co-Signing Physician Notes I personally examined the patient and verified all seymour points of history and exam, discussed case, and agree with decision making with Dr Last day. was also apparently having dysuria. Vitals noted, in general she is sleeping awakens a little. Daughter at the bedside. Face bruised, lip laceration well approximated with sutures. Skin with some bruising. fallfortunately does not appear to have bony trauma, unfortunately soft tissue. PT/OT eval and treat, family plans on escalation to SNF, and then probably back to memory care. UTIceftriaxone pending culture DVT prophylaxisby tomorrow if she is not significantly ambulatory, will initiate Lovenoxwe will hold off for now just because of the fall, bruising, and thus far fairly short hospitalization Subjective Daughter was at bedside with pt. Does note that she has been complaining of urinary symptoms. Also notes that she has been having some pain on chest consistent with fall. Review of Systems Review of Systems: As per above Physical Exam Physical Exam: Constitutional: well-appearing, no acute distress HEENT: NCAT, no conjunctival injection CV: regular rhythm, no murmur appreciated, extremities well-perfused, no LE sade a Resp: CTABL, no wheezes/rales/rhonchi appreciated, no increased work of breathing MSK: no gross deformities appreciated Skin: bruising chin and lip, sutures present on lip Neuro: alert, oriented, no focal neurologic deficit appreciated Results & Data Results & Data Vital Signs (Past 12 Hours) Vital Signs Temp Pulse Pulse Pulse Resp BP BP 03/02/23 02:03 73 03/02/23 02:00 36.9 C 76 20 169/81 H 03/02/23 01:00 71 18 175/112 H 03/02/23 01:39 71 18 175/112 H 03/01/23 23:30 76 18 03/01/23 23:20 68 18 03/01/23 23:12 172/97 H 03/01/23 23:12 72 12 03/01/23 23:10 71 17 03/01/23 23:00 69 22 03/01/23 22:50 69 15 03/01/23 22:40 73 15 03/01/23 22:30 66 12 03/01/23 22:30 182/89 H 03/01/23 22:20 66 17 03/01/23 22:10 70 18 03/01/23 22:00 68 12 03/01/23 22:00 131/97 03/01/23 21:50 68 17 03/01/23 21:48 173/94 H 03/01/23 21:48 67 15 03/01/23 21:40 65 21 03/01/23 21:31 72 29 H 03/01/23 21:31 198/111 H 03/01/23 21:30 74 17 03/01/23 21:20 67 9 L 03/01/23 21:10 72 15 03/01/23 21:00 70 11 L 03/01/23 21:00 190/99 H 03/01/23 20:50 70 19 03/01/23 20:48 69 11 L 03/01/23 20:47 184/90 H 03/01/23 20:27 68 20 03/01/23 20:20 67 13 03/01/23 20:10 67 16 03/01/23 20:00 68 11 L 03/01/23 20:00 152/93 H 03/01/23 19:50 68 17 03/01/23 19:40 69 16 03/01/23 19:30 72 18 03/01/23 19:30 186/115 H 03/01/23 19:27 70 18 03/01/23 19:27 155/76 H 03/01/23 19:20 68 16 03/01/23 19:20 158/97 H 03/01/23 19:14 72 12 03/01/23 22:53 69 03/01/23 21:00 71 16 190/99 H 03/01/23 19:23 72 18 158/97 H Pulse Ox O2 Del Method 03/02/23 02:03 03/02/23 02:00 95 Room Air 03/02/23 01:00 91 Room Air 03/02/23 01:39 91 Room Air 03/01/23 23:30 95 03/01/23 23:20 96 03/01/23 23:12 03/01/23 23:12 03/01/23 23:10 03/01/23 23:00 03/01/23 22:50 03/01/23 22:40 03/01/23 22:30 03/01/23 22:30 03/01/23 22:20 03/01/23 22:10 03/01/23 22:00 03/01/23 22:00 03/01/23 21:50 03/01/23 21:48 03/01/23 21:48 03/01/23 21:40 03/01/23 21:31 03/01/23 21:31 03/01/23 21:30 03/01/23 21:20 94 03/01/23 21:10 100 03/01/23 21:00 97 03/01/23 21:00 03/01/23 20:50 03/01/23 20:48 03/01/23 20:47 03/01/23 20:27 03/01/23 20:20 03/01/23 20:10 03/01/23 20:00 03/01/23 20:00 03/01/23 19:50 03/01/23 19:40 03/01/23 19:30 94 03/01/23 19:30 03/01/23 19:27 97 03/01/23 19:27 03/01/23 19:20 97 03/01/23 19:20 03/01/23 19:14 03/01/23 22:53 03/01/23 21:00 96 Room Air 03/01/23 19:23 95 Resident Activity Tracking Resident Involvement: Resident Care Provided Care Provided: Adult Hospital Medicine (1) Fall Encounter type: initial encounter Qualified Code(s): W19.XXXA - Unspecified fall, initial encounter (2) Laceration of lip Encounter type: initial encounter Qualified Code(s): S01.511A - Laceration without foreign body of lip, initial encounter (4) Dementia Dementia type: unspecified type
--- NOTE | 2023-03-02 07:49 | XRay Report ---
XR knee LT 3V CLINICAL HISTORY: fall, patella pain. Left knee pain. COMPARISON STUDY: Left knee 02/25/2021. FINDINGS: No fracture or dislocation. No significant knee effusion. Mild to moderate tricompartmental osteoarthritis most pronounced within the medial compartment of the left knee. Mild prepatellar soft tissue swelling. IMPRESSION: Mild prepatellar soft tissue swelling. No fractures. ACT 112: Negative or not required by law. Electronically signed by: Karlos Gonzalez M.D. 03/02/2023 7:48 AM
[2023-03-02] MEDS: CHOLECALCIFEROL 1,000 UNITS 25 MCG TAB PO SCH (09:13)
[2023-03-02] MEDS: ATENOLOL 25 MG TABLET PO SCH (09:14)
[2023-03-02] MEDS: QUEtiapine FUMARATE 25 MG TABLET PO SCH ×2 (09:14→20:04)
[2023-03-02] MEDS: ACETAMINOPHEN 500 MG TAB PO SCH ×2 (15:07→23:35)
[2023-03-02] MEDS: LIDOCAINE 5% 1 PATCH TD SCH (17:54)
[2023-03-02] MEDS: cefTRIAXone SODIUM 1,000 MG in DEXTROSE 5% AD-VAN 50 ML IV SCH (20:03)
[2023-03-02] MEDS: PARoxetine HCL 20 MG TAB PO SCH (20:04)
[2023-03-03] MEDS: ACETAMINOPHEN 500 MG TAB PO SCH ×4 (01:06→22:19)
[2023-03-03] MEDS: LEVOTHYROXINE SODIUM 75 MCG TABLET PO SCH (05:41)
--- NOTE | 2023-03-03 06:36 | Electrocardiogram Report ---
Test Reason : Blood Pressure : / mmHG Vent. Rate : 071 BPM Atrial Rate : 071 BPM P-R Int : 176 ms QRS Dur : 090 ms QT Int : 436 ms P-R-T Axes : 075 013 059 degrees QTc Int : 473 ms Sinus rhythm with Premature supraventricular complexes Minimal voltage criteria for LVH, may be normal variant Borderline ECG When compared with ECG of 27-FEB-2023 02:52, Premature supraventricular complexes are now Present Confirmed by Antelmo Romero ([id number]) on 03/03/2023 6:36:19 AM Referred By: [facility] Confirmed By:Antelmo Romero
--- NOTE | 2023-03-03 06:40 | Hospitalist Progress Note ---
Date of Service March 03, 2023 Assessment & Plan (1) Fall: Plan: 82yo Female with PMH alzheimer's dementia HTN hypothyroidism depression/anxiety, hx heart disease here for fall. Fall -mechanism likley mechanical fall -CT head spine thoracic negative -PT/OT -tylenol, lidocaine patch for pain - Plan for SNF placement UTI -urine culture with >3 organisms -received Rocephin in ED -continue empiric Rocephin - daughter does note that she has been complaining of urinary symptoms Dementia -continue quetiapine HTN -continue atenolol Hypothyroidism -continue levothyroxine Depression -continue paroxetine FENa: regular with ensure Code Status: DNR/DNI DVT PPX: SCDs (2) Laceration of lip: (3) Acute UTI: (4) Dementia: (5) Paroxysmal SVT (supraventricular tachycardia): Admission and Anticipated Discharge Date Admission Date: March 01, 2023 Supervising Physician Co-Signing Physician Notes I personally examined the patient and verified all seymour points of history and exam, discussed case, and agree with decision making with Dr Ni no new complaints, pain seems to be controlled. Vitals noted, in general she isawake, nad. Face bruised, lip laceration well approximated with sutures. Skin with some bruising. fallfortunately does not appear to have bony trauma, unfortunately soft tissue injuries and pain - pain control. PT/OT eval and treat, family plans on escalation to SNF, and then probably back to memory care. UTI continue ceftriaxone pending culture DVT prophylaxis Subjective Toshia was doing well this morning. No complaints. Resting comfortably. Review of Systems Review of Systems: As per above Physical Exam Physical Exam: Constitutional: well-appearing, no acute distress HEENT: NCAT, no conjunctival injection CV: extremities well-perfused, no LE edema Resp: no increased work of breathing MSK: no gross deformities appreciated Skin: bruising chin and lip, sutures present on lip Neuro: alert, oriented, no focal neurologic deficit appreciated Results & Data Results & Data Vital Signs (Past 12 Hours) Vital Signs Temp Pulse Pulse Resp BP Pulse Ox O2 Del Method 03/02/23 23:35 66 03/02/23 21:13 Room Air 03/02/23 19:37 36.7 C 64 18 144/65 H 91 Room Air Resident Activity Tracking Resident Involvement: Resident Care Provided Care Provided: Adult Hospital Medicine (1) Fall Encounter type: initial encounter Qualified Code(s): W19.XXXA - Unspecified fall, initial encounter (2) Laceration of lip Encounter type: initial encounter Qualified Code(s): S01.511A - Laceration without foreign body of lip, initial encounter (4) Dementia Dementia type: unspecified type
--- NOTE | 2023-03-03 06:45 | Electrocardiogram Report ---
Test Reason : Blood Pressure : / mmHG Vent. Rate : 069 BPM Atrial Rate : 069 BPM P-R Int : 184 ms QRS Dur : 080 ms QT Int : 430 ms P-R-T Axes : 087 028 055 degrees QTc Int : 460 ms Normal sinus rhythm Premature supraventricular complexes Nonspecific ST abnormality When compared with ECG of 01-MAR-2023 18:46, No significant change Confirmed by Antelmo Romero ([id number]) on 03/03/2023 6:45:06 AM Referred By: [facility] Confirmed By:Antelmo Romero
[2023-03-03] MEDS: QUEtiapine FUMARATE 25 MG TABLET PO SCH ×2 (08:26→20:02)
[2023-03-03] MEDS: CHOLECALCIFEROL 1,000 UNITS 25 MCG TAB PO SCH (08:26)
[2023-03-03] MEDS: ATENOLOL 25 MG TABLET PO SCH (08:27)
[2023-03-03] MEDS: LIDOCAINE 5% 1 PATCH TD SCH (08:27)
--- NOTE | 2023-03-03 16:00 | Billing Data ---
Date of Service March 03, 2023 Coding Level of Care Code 79492 SUB INP/OBS CARE
--- NOTE | 2023-03-03 19:43 | Billing Data ---
Date of Service March 03, 2023 Coding Level of Care Code 14255 INT INP/OBS CARE
[2023-03-03] MEDS: PARoxetine HCL 20 MG TAB PO SCH (20:01)
[2023-03-03] MEDS: cefTRIAXone SODIUM 1,000 MG in DEXTROSE 5% AD-VAN 50 ML IV SCH (20:01)
[2023-03-04] MEDS: ACETAMINOPHEN 500 MG TAB PO SCH ×3 (06:04→22:04)
[2023-03-04] MEDS: LEVOTHYROXINE SODIUM 75 MCG TABLET PO SCH (06:04)
--- NOTE | 2023-03-04 06:40 | Hospitalist Progress Note ---
Date of Service March 04, 2023 Assessment & Plan (1) Fall: Plan: 82yo Female with PMH alzheimer's dementia HTN hypothyroidism depression/anxiety, hx heart disease here for fall. Fall -mechanism likely mechanical fall -CT head spine thoracic negative -PT/OT -Tylenol, lidocaine patch for pain - Plan for SNF placement, hopeful for [facility] UTI -urine culture with >3 organisms -received Rocephin in ED -continue empiric Rocephin; today is day 3. Will transition to cefdinir - daughter does note that she has been complaining of urinary symptoms Dementia -continue quetiapine HTN -continue atenolol Hypothyroidism -continue levothyroxine Depression -continue paroxetine FENa: regular with ensure Code Status: DNR/DNI DVT PPX: SCDs (2) Laceration of lip: (3) Acute UTI: (4) Dementia: (5) Paroxysmal SVT (supraventricular tachycardia): Admission and Anticipated Discharge Date Admission Date: March 01, 2023 Supervising Physician Co-Signing Physician Notes I personally examined the patient and verified all seymour points of history and exam, discussed case, and agree with decision making with Dr Ni no new complaints, pain seems to be controlled. quite confused. Vitals noted, in general she is awake, pleasantly confused, nad. Face bruised, lip laceration well approximated with sutures. Skin with some bruising. fallfortunately does not appear to have bony trauma, unfortunately soft tissue injuries and pain - pain control. PT/OT eval and treat, family plans on escalation to SNF, and then probably back to memory care. UTI continue abx - change ceftriaxone to cefdinir - culture nonspecific but symptoms apparently have resolved per dtr. dementia - severe/delirium on dementia DVT prophylaxisloveonx Subjective Toshia was doing well this morning. Sitting up in chair. Eating breakfast. Review of Systems Review of Systems: As per above Physical Exam Physical Exam: Constitutional: well-appearing, no acute distress HEENT: NCAT, no conjunctival injection CV: extremities well-perfused, no LE edema Resp: no increased work of breathing MSK: no gross deformities appreciated Skin: bruising chin and lip, sutures present on lip Neuro: alert, no focal neurologic deficit appreciated Results & Data Results & Data Vital Signs (Past 12 Hours) Vital Signs Temp Pulse Resp BP Pulse Ox O2 Del Method 03/03/23 22:25 36.6 C 60 18 176/75 H 94 Room Air 03/03/23 21:24 Room Air Resident Activity Tracking Resident Involvement: Resident Care Provided Care Provided: Adult Hospital Medicine (1) Fall Encounter type: initial encounter Qualified Code(s): W19.XXXA - Unspecified fall, initial encounter (2) Laceration of lip Encounter type: initial encounter Qualified Code(s): S01.511A - Laceration without foreign body of lip, initial encounter (4) Dementia Dementia type: unspecified type
[2023-03-04] MEDS: CHOLECALCIFEROL 1,000 UNITS 25 MCG TAB PO SCH (08:54)
[2023-03-04] MEDS: QUEtiapine FUMARATE 25 MG TABLET PO SCH ×2 (08:54→22:03)
[2023-03-04] MEDS: ATENOLOL 25 MG TABLET PO SCH (08:54)
[2023-03-04] MEDS: ENOXAPARIN INJ 40 MG/0.4 ML SYR SQ SCH (08:55)
[2023-03-04] MEDS: LIDOCAINE 5% 1 PATCH TD SCH (08:55)
--- NOTE | 2023-03-04 14:10 | Billing Data ---
Date of Service March 04, 2023 Coding Level of Care Code 71195 SUB INP/OBS CARE
[2023-03-04] MEDS: PARoxetine HCL 20 MG TAB PO SCH (22:03)
[2023-03-04] MEDS: CEFDINIR 300 MG CAP PO SCH (22:03)
[2023-03-04] MEDS ORDERED: IBUPROFEN 200 MG TAB PO PRN (23:41)
--- NOTE | 2023-03-05 07:05 | Hospitalist Progress Note ---
Date of Service March 05, 2023 Assessment & Plan (1) Fall: Plan: 82F with PMH Alzheimer dementia, HTN, hypothyroidism, depression/anxiety, hx heart disease admitted to the hospital following a presumed mechanical fall. Now stable and awaiting placement to [facility]. Fall -Presumed mechanical -CT head, thoracic spine negative -PT/OT: -Tylenol, lidocaine patch for pain * Plan for SNF placement: [facility] currently unwilling to accept with one-to-one. Will reassess tomorrow once off one-to-one. UTI -urine culture with >3 organisms -received Rocephin in ED -continue empiric Rocephin; today is day 4. Will transition to cefdinir - daughter does note that she has been complaining of urinary symptoms Dementia -Started on quetiapine 25 mg twice daily by Dr. De La Fuente approximately 3 weeks ago. * Adjusting quetiapine dose: 12.5 mg every morning, 37.5 mg nightly. HTN -continue atenolol Hypothyroidism -continue levothyroxine Depression -continue paroxetine FENa: regular with ensure Code Status: DNR/DNI DVT PPX: SCDs (2) Laceration of lip: (3) Acute UTI: (4) Dementia: (5) Paroxysmal SVT (supraventricular tachycardia): Admission and Anticipated Discharge Date Admission Date: March 01, 2023 Supervising Physician Co-Signing Physician Notes ATTESTATION I also saw the patient and confirmed seymour portions of the history and exam. I agree with the impression and plan in the resident documentation, and as summarized below. Upon our exam early afternoon, patient's daughter is at bedside. Daughter reports the patient has been ambulatory in the hallway with walker and her assistance. She has been up most of the day; this is the first she has napped today. EXAM 145/83, 68, 18, 36.3, 95% room air Facial bruising, lip laceration well approximated with sutures. Sleeping but awakens to voice. Smiles. No distress appreciated. No signs of pain. Heart is regular Respirations are nonlabored IMPRESSION & PLAN Mechanical fall Dementia with acute delirium Change Seroquel to 12.5 mg a.m., 37.5 mg p.m. tonight; consider increase to 50 mg qhs Risk/benefits of use of atypical psychotics in the setting of dementia discussed with the daughter, including the black box warning In this case, continued use seems to provide greater benefit than risk; discussed titration and reduction as behavior symptoms eunice with continued progression of dementia Continue Paxil UTI Culture nondiagnostic but symptoms improved with treatment per daughter Continue cefdinir Additional per resident documentation Subjective Patient is seated with one-to-one at bedside. Per the one-to-one at bedside, she tolerated breakfast well and had just returned from the bathroom when she had a "good" bowel movement. Review of Systems Review of Systems: All systems reviewed & are unremarkable except as noted in HPI & below Physical Exam Physical Exam: Constitutional: well-appearing, no acute distress HEENT: NCAT, no conjunctival injection large healing hematoma on immediately inferior to the chin/anterior neck CV: extremities well-perfused, no LE edema Resp: no increased work of breathing MSK: no gross deformities appreciated Skin: Large, healing hematoma of lower lip and chin Neuro: alert, no focal neurologic deficit appreciated Results & Data Results & Data Vital Signs (Past 12 Hours) Vital Signs Temp Pulse Resp BP Pulse Ox O2 Del Method 03/04/23 23:46 36.6 C 66 20 166/79 H 93 Room Air Resident Activity Tracking Resident Involvement: Resident Care Provided Care Provided: Adult Hospital Medicine (1) Fall Encounter type: initial encounter Qualified Code(s): W19.XXXA - Unspecified fall, initial encounter (2) Laceration of lip Encounter type: initial encounter Qualified Code(s): S01.511A - Laceration without foreign body of lip, initial encounter (4) Dementia Dementia type: unspecified type
[2023-03-05] MEDS: ACETAMINOPHEN 500 MG TAB PO SCH ×3 (07:48→20:11)
[2023-03-05] MEDS: ATENOLOL 25 MG TABLET PO SCH (07:49)
[2023-03-05] MEDS: LEVOTHYROXINE SODIUM 75 MCG TABLET PO SCH (07:49)
[2023-03-05] MEDS: CEFDINIR 300 MG CAP PO SCH ×2 (07:49→20:12)
[2023-03-05] MEDS: CHOLECALCIFEROL 1,000 UNITS 25 MCG TAB PO SCH (07:50)
[2023-03-05] MEDS: ENOXAPARIN INJ 40 MG/0.4 ML SYR SQ SCH (07:50)
[2023-03-05] MEDS: LIDOCAINE 5% 1 PATCH TD SCH (07:51)
[2023-03-05] MEDS: QUEtiapine FUMARATE 25 MG TABLET PO SCH ×2 (09:27→20:11)
[2023-03-05] MEDS: PARoxetine HCL 20 MG TAB PO SCH (20:10)
[2023-03-05] MEDS: MELATONIN 3 MG TAB PO PRN (20:19)
[2023-03-06] MEDS: LEVOTHYROXINE SODIUM 75 MCG TABLET PO SCH (06:19)
--- NOTE | 2023-03-06 06:49 | Hospitalist Progress Note ---
Date of Service March 06, 2023 Assessment & Plan (1) Fall: Plan: 82F with PMH Alzheimer dementia, HTN, hypothyroidism, depression/anxiety, hx heart disease admitted to the hospital following a presumed mechanical fall. Now stable and awaiting placement to [facility]. Fall -Presumed mechanical -CT head, thoracic spine negative -PT/OT: -Tylenol, lidocaine patch for pain -Patient did well off 1:1 last night and with new dosing of Seroquel (12.5mg AM, 37.5PM). -Ordered Bivalent COVID vaccine per [facility] prior to discharge tomorrow at noon. UTI -urine culture with >3 organisms -received Rocephin in ED -continue empiric Rocephin; today is day 4. Will transition to cefdinir - daughter does note that she has been complaining of urinary symptoms Dementia -Started on quetiapine 25 mg twice daily [address] Dr. De La Fuente approximately 3 weeks ago. * Adjusting quetiapine dose: 12.5 mg every morning, 37.5 mg nightly. HTN -continue atenolol Hypothyroidism -continue levothyroxine Depression -continue paroxetine FENa: regular with ensure Code Status: DNR/DNI DVT PPX: SCDs (2) Laceration of lip: (3) Acute UTI: (4) Dementia: (5) Paroxysmal SVT (supraventricular tachycardia): Admission and Anticipated Discharge Date Admission Date: March 01, 2023 Supervising Physician Co-Signing Physician Notes ATTESTATION I also saw the patient and confirmed seymour portions of the history and exam. I agree with the impression and plan in the resident documentation, and as summarized below. Upon our exam this afternoon, the patient seems much more awake as compared to yesterday. Daughter reports that the patient slept very well last night, for about 9:30 PM to around 6 AM. She ate well last night and this morning. Daughter also notes that she has been more awake today. She is no longer on one-to-one. EXAM 133/84, 74, 18, 36.8, 95% room air Awake. Alert. Answers simple questions appropriately. Interactive. Heart is regular Respirations are nonlabored IMPRESSION & PLAN Mechanical fall Dementia with acute delirium Continue Seroquel to 12.5 mg a.m., 37.5 mg p.m Could consider eliminating the a.m. dose but would wait until after she is settled in at her new facility Risk/benefits of use of atypical psychotics in the setting of dementia were discussed with the daughter yesterday, including the black box warning In this case, as we discussed, continued use seems to provide greater benefit than risk; discussed titration and reduction as behavior symptoms eunice with continued progression of dementia Continue Paxil UTI Culture nondiagnostic but symptoms improved with treatment per daughter Continue cefdinir Additional per resident documentation Subjective Patient seen at the bedside feeling well, no overnight events or need for 1:1. Review of Systems Review of Systems: As per above Physical Exam Constitutional: WD/WN, vitals as above Eyes: PERRL, conjunctivae normal, anicteric sclerae Respiratory: normal respiratory effort, lungs clear to auscultation Cardiovascular: RRR, no murmur, no edema Gastrointestinal (Abdomen): normal bowel sounds, soft, nontender, no hepatosplenomegaly Skin: Bruising at the chin spread across anterior neck. Results & Data Results & Data Vital Signs (Past 12 Hours) Vital Signs Temp Pulse Resp BP Pulse Ox O2 Del Method 03/06/23 06:11 36.5 C 59 L 18 142/70 H 95 Room Air Resident Activity Tracking Resident Involvement: Resident Care Provided Care Provided: Adult Hospital Medicine (1) Fall Encounter type: initial encounter Qualified Code(s): W19.XXXA - Unspecified fall, initial encounter (2) Laceration of lip Encounter type: initial encounter Qualified Code(s): S01.511A - Laceration without foreign body of lip, initial encounter (4) Dementia Dementia type: unspecified type
[2023-03-06 07:47] LABS: Creatinine Clr Calc Pharmacy 45.6 ml/min; Est GFR (African American) 72.4 ml/min; Est GFR (Non-African American) 62.5 ml/min
[2023-03-06] MEDS: LIDOCAINE 5% 1 PATCH TD SCH (07:49)
[2023-03-06] MEDS: ATENOLOL 25 MG TABLET PO SCH (07:50)
[2023-03-06] MEDS: QUEtiapine FUMARATE 25 MG TABLET PO SCH ×2 (07:51→21:25)
[2023-03-06] MEDS: ENOXAPARIN INJ 40 MG/0.4 ML SYR SQ SCH (07:52)
[2023-03-06] MEDS: ACETAMINOPHEN 500 MG TAB PO SCH ×3 (07:52→21:24)
[2023-03-06] MEDS: CEFDINIR 300 MG CAP PO SCH ×2 (07:53→21:25)
[2023-03-06] MEDS: CHOLECALCIFEROL 1,000 UNITS 25 MCG TAB PO SCH (07:53)
[2023-03-06] MEDS ORDERED: COVID19 BIVALENT Vaccine (Pfizer) 30mcg/0.3mL SDV IM ONE (14:35)
[2023-03-06] MEDS: PARoxetine HCL 20 MG TAB PO SCH (21:25)
[2023-03-06] MEDS: MELATONIN 3 MG TAB PO PRN (21:30)
[2023-03-07] MEDS: LEVOTHYROXINE SODIUM 75 MCG TABLET PO SCH (05:42)
[2023-03-07] MEDS: LIDOCAINE 5% 1 PATCH TD SCH (07:55)
[2023-03-07] MEDS: QUEtiapine FUMARATE 25 MG TABLET PO SCH (07:57)
[2023-03-07] MEDS: CHOLECALCIFEROL 1,000 UNITS 25 MCG TAB PO SCH (07:57)
[2023-03-07] MEDS: ACETAMINOPHEN 500 MG TAB PO SCH (07:58)
[2023-03-07] MEDS: CEFDINIR 300 MG CAP PO SCH (07:58)
[2023-03-07] MEDS: ATENOLOL 25 MG TABLET PO SCH (07:59)
[2023-03-07] MEDS: ENOXAPARIN INJ 40 MG/0.4 ML SYR SQ SCH (08:00)
--- NOTE | 2023-03-07 08:54 | Discharge Summary ---
Date of Service March 07, 2023 Admission HPI Per Admitting Provider 82yo Female with PMH alzheimer's dementia HTN hypothyroidism depression/anxiety, hx heart disease here for fall. Unfortunately patient is a poor historian and is unable to recall the event, history primarily from Daughter. Daughter states patient fell once yesterday morning was found on the ground had pain on back and left knee. She later had a second fall last night leaving the dining room and hit her lip. Patient resides in [facility], per daughter it is understaffed, patient's falls were unwitnessed. At this time patient describes pain in her lip, back, and suprapubic region of abdomen. She denies any headache dizziness fever SOB nausea. States it hurts to pee. Per family they request patient have PT/OT so that she can be in skilled rehab for 2 weeks, patient walks without assistance at baseline but family feels she may need assistive device at this time, thinks her gait and new shoes may have contributed to fall. Family dissatisfied with low staffing at [place] hope to be able to transfer patient to [facility], possibly [facility]. Patient was recently admitted from 02/27-02/27 for concern chest pain likely to be GERD, attributed to Ensure late at night, plan was to move her Ensure to earlier in the evening. Daughter Ruthy is POA. Admission Exam Per Admitting Provider Constitutional: + thin, cooperative and comfortable Eyes: PERRL, conjunctivae normal, anicteric sclerae ENMT: bloody lower lip with stitches present Neck: trachea midline, no thyromegaly Respiratory: normal respiratory effort, lungs clear to auscultation Cardiovascular: RRR, no murmur, no edema Gastrointestinal (Abdomen): Inspection/Auscultation: abdomen normal to inspection Percussion/Palpation: + abdomen tender (suprapubic region) and abdomen soft Skin: some scattered scabs located on patient's upper back, no bruising or ulcers noted on lower back or buttocks, small bruising noted on left anterior knee Psychiatric: Orientation: alert and oriented to person Principal Diagnosis Fall Discharge Exam Constitutional WD/WN, vitals as above Eyes PERRL, conjunctivae normal, anicteric sclerae Respiratory normal respiratory effort, lungs clear to auscultation Cardiovascular RRR, no murmur, no edema Gastrointestinal (Abdomen) normal bowel sounds, soft, nontender, no hepatosplenomegaly Discharge Data Allergies Allergy/AdvReac Type Severity Reaction Status Date / Time mercury (elemental) Allergy Unknown Hives Verified 02/16/20 13:12 codeine AdvReac Unknown Gastrointestinal Verified 02/16/20 13:12 Upset Consultations 03/01/23 23:52 ED Decision to Admit Stat Ordered Studies 03/01/23 19:46 CT cervical spine wo con Stat IMPRESSION: 1. No cervical fractures. 2. Cervical spondylosis with varying degrees of central canal and foramina stenoses. CT chest diagnostic wo con Stat IMPRESSION: No acute findings in the chest. CT head/brain wo con Stat IMPRESSION: head CT negative for acute intracranial abnormality Hospital Course (1) Fall: 82F with PMH Alzheimer dementia, HTN, hypothyroidism, depression/anxiety, hx heart disease admitted to the hospital following a presumed mechanical fall. Now stable and awaiting placement to [facility]. Fall -Presumed mechanical -CT head, thoracic spine negative -Patient did well off 1:1 last night and with new dosing of Seroquel (12.5mg AM, 37.5PM). -Patient had Bivalent COVID vaccine prior to discharge per [facility]'s request. -Hgb 14.0 on 03/01, vitals remained stable prior to discharge. -Lidocaine patch PRN for pain. UTI -urine culture with >3 organisms -received Rocephin in ED -Received 4 days of Ceftriaxone while hospitalized. Transitioned to Cefdinir 300mg BID for 3 more days. Dementia -Started on quetiapine 25 mg twice daily [address] De La Fuente approximately 3 weeks ago. -Adjusted quetiapine dose: 12.5 mg every morning, 37.5 mg nightly. Did well with this, can potentially titrate down further in the future. (2) Laceration of lip: (3) Acute UTI: (4) Dementia: (5) Paroxysmal SVT (supraventricular tachycardia): Total Time Total Time Spent Total Time Spent (In Minutes): Please see attending attestation Discharge Plan Discharge Items Patient Disposition: Transfer [facility] Reason For Visit: FREQUENT FALLS, INCREASED TROPONIN Discharge Diagnosis: Fall Activity: Per Instructions section Non-emergency contact: Primary Care Provider Call non-emergency contact if: your symptoms worsen, your pain is worsening and your temperature is above 101 [facility] - Diet: Regular Addtl Attending Provider Instructions: A discharge summary will be sent to your primary care physician to ensure continuity of care. You came to the hospital for a fall that may have been due to an underlying UTI that you had. During your hospital stay you remained stable as you were treated with antibiotics. You will be going to [facility] and will finish up your antibiotics for another 3 days. While you were hospitalized we found good benefit from switching your Seroquel from 25mg twice a day to 12.5mg in the morning and 37.5mg at night. You will continue this dosage upon discharge. Follow-up: * You should be seen by your primary physician within the next week. Medications: Your medication list has been reviewed and reconciled upon discharge to ensure accuracy and continuity of care. An updated list of all your medications is included with your hospital discharge paperwork. Please review this list closely, and make note of any changes. * You will be taking Cefdinir, an antibiotic, twice a day for 3 more days to complete the UTI treatment course. * Your Seroquel is changed to 12.5mg in the morning and 37.5mg at night. We have sent a prescription for two weeks of this for you, please have your PCP refill the medication when you are getting low. Please keep taking the melatonin at night with Seroquel. * Please use lidocaine patches for the muscle chest pain as needed. Take your medications as instructed; do not skip a dose of your medicines. Make sure all of your doctors know every medicine you are taking (including [id number] medicines, vitamins, and supplements). let your primary care provider know before taking any new medicines because some of these may interact with your current medications, or may make your symptoms worse. CONTACT YOUR PRIMARY CARE PROVIDER if you experience any of the following: * Fevers or shaking chills * Shortness of breath not relieved by inhalers, fainting * Sudden abdominal distension not relieved by catheterization. * Difficulty following your treatment plan, or difficulty taking medications CALL 911 OR GO TO THE EMERGENCY DEPARTMENT if you experience any of the following: * Sudden, severe abdominal pain or nausea/vomiting * Severe chest pain, or chest pain that radiates (moves) to your jaw or arm * Sudden, severe shortness of breath or difficulty breathing It was was our pleasure taking care of you here at [facility] . Thank you for allowing us to participate in your care. Pending Studies at Discharge: No Stand-Alone Forms: My [facility] Skilled Items Patient informed of condition?: Yes DNR: Yes Discharge Level of Care: Skilled Communicable Disease: No Discharge Prognosis: Stable Lines: None Urinary Catheter: No Medications and DC Order Prescriptions: New quetiapine 25 mg Tablet 37.5 mg PO HS 15 Days Qty: 23 0RF quetiapine 25 mg Tablet 12.5 mg PO QAM 15 Days Qty: 8 0RF cefdinir 300 mg Capsule 300 mg PO BID 3 Days Qty: 6 0RF melatonin 3 mg Tablet 3 mg PO HS PRN30 Days Qty: 30 0RF lidocaine 5 % Adhesive Patch,Medicated 1 patch transdermal QAM 30 Days Qty: 30 0RF Continued paroxetine HCl 30 mg tablet 30 mg PO QPM levothyroxine 75 mcg tablet 75 mcg PO QAM multivitamin Tablet 1 tab PO DAILY atenolol 25 mg tablet 12.5 mg PO DAILY tramadol 50 mg Tablet 25 - 50 mg PO Q6H PRN (Reason: pain) Qty: 30 0RF cholecalciferol (vitamin D3) 25 mcg (1,000 unit) Capsule 2,000 unit PO QAM Qty: 60 2RF Discontinued quetiapine 25 mg Tablet 25 mg PO BID 30 Days Qty: 60 0RF Discharge Orders: Discharge Order (Routine); Ordered 03/07/23 Ordered By: Aditya Gonzalez Admission Data Admit Date/Time: 03/01/23 23:49 Attending Provider: Kumar Rousseau Admit Provider: Olu Abarca [place] Care Provider[place] Other Providers: Olu Abarca ; Theresa Stringer [facility] Other Interventions: Discharge Summary Assessment (RN) Last Done: 03/07/23 10:57 Supervising Physician Co-Signing Physician Notes ATTESTATION I also saw the patient and confirmed seymour portions of the history and exam. I agree with the impression and plan in the resident documentation, and as summarized below. Upon our midmorning exam, the patient is dressed, and the bed and sitting in the bedside chair. She is as alert and interactive as I have seen her over the past 3 days. Daughter is at bedside, and reports the patient did quite well overnight in terms of sleep and subsequently seems much better this morning. EXAM 160/58, 77, 18, 36.8, 96 on room air Awake. Alert. Answers simple questions appropriately. Interactive. Heart is regular Respirations are nonlabored IMPRESSION & PLAN Mechanical fall Dementia with acute delirium Continue Seroquel to 12.5 mg a.m., 37.5 mg p.m Could consider eliminating the a.m. dose but would wait until after she is settled in at her new facility Risk/benefits of use of atypical psychotics in the setting of dementia were discussed with the daughter yesterday, including the black box warning In this case, as we discussed, continued use seems to provide greater benefit than risk; discussed titration and reduction as behavior symptoms eunice with continued progression of dementia Continue Paxil UTI Culture nondiagnostic but symptoms improved with treatment per daughter Continue cefdinir Anterior chest wall pain, secondary to fall Reproducible upon exam Lidocaine patch seems to be effective Additional per resident documentation Resident Activity Tracking Resident Involvement: Resident Care Provided Care Provided: Adult Hospital Medicine
== END 2023-03-07 11:15 | DRG 690 ==
LOC: ED 18:38 → 2N 23:49 → SUATTDRO 23:49 → 2N 03-02 01:39

== ENCOUNTER 2025-01-02 23:22 | Observation (INO) ==
--- OUTSIDE RECORDS SUMMARY | 2025-01-02 23:27 | External Medical Summary | Continuity of Care Document ---
Author Name Unknown Organization [address] Address [address] [place] [phone] Care Team Providers Care New Product Trainer Name Role Phone Coni De La Fuente Primary Care Physician [phone] Encounter [facility] [id number] Date(s): 11/04/24 - 11/04/[address] [place] [address], [facility] [address] [place] [address] [place] [phone] Encounter Diagnosis Body mass index [BMI] 26.0-26.9, adult(Discharge Diagnosis) - 11/04/24 Alzheimer's dementia(Discharge Diagnosis) - 11/04/24 Hypothyroid(Discharge Diagnosis) - 11/04/24 Discharge Disposition: Home or Self Care Attending Physician: DO De La Fuente Kristen M Referring Physician: DO De La Fuente Kristen M Encounter Type: Clinic Allergies, Adverse Reactions, Alerts Substance Criticality Severity Reaction Reaction Severity Status codeine vomiting Active Ammoniated Mercury hives A ctive Assessment and Plan Extracted from: Title:Office Visit Note Author:DO De La Fuente Kriste n M Date:11/04/24 1. Alzheimer's dementia Chronic condition, stable Goal:Resolution Data:unique tests ordered: _ Plan: _severe but should optimize #2 2. Hypothyroid Chronic condition, stable Goal:Resolution Data:unique tests ordered: _ Plan: _increase dose and recheck in 6 weeks Immunizations Given and Recorded Vaccine Date Status Refusal Reason tetanus/diphtheria/pertuss, acel (Tdap) 03/07/23 R ecorded tetanus/diphtheria/pertuss, acel (Tdap) 1 03/01/23 Recorded SARS-CoV-2 mRNA (Pfizer 12+) bivalent 2 03/06/23 R ecorded influenza virus vaccine, inactivated 05/25/21 Ramesh rded influenza virus vaccine, inactivated 06/26/19 Give n influenza virus vaccine, inactivated 06/14/18 Give n influenza virus vaccine, inactivated 06/01/17 Give n influenza virus vaccine, inactivated 06/22/16 Give n SARS-CoV-2 (COVID-19) mRNA BNT-162b2 vax 10/16/20 Recorded SARS-CoV-2 (COVID-19) mRNA BNT-162b2 vax 09/25/20 Recorded pneumococcal 13-valent vaccine 09/13/17 Given 1Result Comment: 2023-06-15: Historical information-source unspecified 2Result Comment: 2023-06-15: Historical information-source unspecified Medications atenolol 25 mg oral tablet Start: 05/31/23 8:57:00 AM EDT, 0.5 tab, PO, Daily, Disp# 45 tab, Refills: 3, Pharmacy: [facility] Start Date: 05/31/23 Status: Ordered Quantity: 45.0 Unit: tab Repeat number: 4 Lactaid Start: 11/01/23 3:08:00 PM EST, 1 tablet by mouth as needed dailiry tolerance. Give prior to meal or snack heavy in dairy Start Date: 11/01/23 Status: Ordered Repeat number: 1 levothyroxine 88 mcg (0.088 mg) oral tablet Start: 08/07/23 9:43:00 AM EST, 1 tab, PO, Daily, Disp# 10 tab, Refills: 0, Pharmacy: [facility] Start Date: 08/07/23 Stop Date: 08/17/23 Status: Ordered Quantity: 10.0 Unit: tab Repeat number: 1 melatonin 5 mg oral tablet Start: 11/01/23 3:16:00 PM EST, 1 tab, PO, qhs, PRN: Insomnia Start Date: 11/01/23 Status: Ordered Repeat number: 1 naproxen 500 mg oral tablet Start: 11/01/23 3:22:00 PM EST, 1 tab, PO, bid, PRN: as needed for arthritis Start Date: 11/01/23 Status: Ordered Repeat number: 1 One-A-Day 50+ oral tablet Start: 11/01/23 3:18:00 PM EST, 1 tab, PO, Daily Start Date: 11/01/23 Status: Ordered Repeat number: 1 PARoxetine 30 mg oral tablet Start: 01/28/24 9:36:00 AM EDT, 1 tab, PO, qPM, Disp# 90 tab, Refills: 3, Pharmacy: [facility] Start Date: 01/28/24 Status: Ordered Quantity: 90.0 Unit: tab Repeat number: 1 Seroquel 50 mg oral tablet Start: 11/01/23 3:21:00 PM EST, 1 tab, PO, qhs Start Date: 11/01/23 Status: Ordered Repeat number: 1 Tylenol 325 mg oral tablet Start: 11/01/23 3:04:00 PM EST, 2 tab, PO, q4h, PRN: as needed for pain Start Date: 11/01/23 Status: Ordered Repeat number: 1 Vitamin D3 1000 intl units (25 mcg) oral capsule Start: 05/21/23 3:08:00 PM EDT, 1 cap, PO, Daily, Disp# 90 cap, Refills: 3, Pharmacy: [facility] Start Date: 05/21/23 Status: Ordered Quantity: 90.0 Unit: cap Repeat number: 4 Mental Status 11/04/24 Barriers to Learning one year None evide nt Mandatory Health Literacy Documentation Yes Health Literacy Communication Barriers N ever Primary Language Sami Problem List Condition Confirmation Course Effective Dates Status H ealth Status Informant Actinic keratosis Confirmed Active POLST (Physician Orders for Life-Sustaining Treatment) Confirmed Active Alzheimer's dementia Confirmed Active Anemia Confirmed Active Anxiety Confirmed Active Xerosis cutis Confirmed Active 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 Skin cancer, basal cell Confirmed Active Tinnitus Confirmed Active Depression Confirmed Active History of basal cell carcinoma of skin Confirmed Active S/P MEDINA-BSO Confirmed Active Hypothyroid Confirmed Active Impingement syndrome of left shoulder Confirmed Active Dermatitis Confirmed Active Left low back pain Confirmed Active Left lumbar radiculopathy Confirmed Active Spondylolisthesis, lumbar region Confirmed Active S/P ORIF (open reduction internal fixation) fracture Confirmed Active Neuropathy Confirmed Active Osteopenia Confirmed Active Hx of reduction of closed fracture Confirmed Active Seborrheic keratoses Confirmed Active Tendinitis involving left hip abductors Confirmed Active Ambulatory dysfunction Confirmed Active Weight loss observed on examination Confirmed Active Weight loss Confirmed Active Wound of skin Confirmed Active Diagnosis Diagnosis Type Effective Dates Health Status Clinical Service Informant Alzheimer's dementia Discharge Diagnosis 11/04/24 Non-Specified Body mass index [BMI] 26.0-26.9, adult Discharge Diagnosis 11/04/24 Non-Specified Hypothyroid Discharge Diagnosis 11/04/24 Non-Specified Procedures Procedure Date Related Diagnosis Body Site Status CT cervical spine 1 01/13/[address] of head brain wo con 2 01/13/[address] of pelvis without contrast 3 01/13/20 Completed Hip X-ray left with pelvis 4 01/13/20 Completed Pelvis X-ray 5 01/13/20 Completed Pelvis X-ray 6 01/13/20 Completed Plain X-ray lumbar spine 7 01/13/20 Completed CAT scan 8 01/13/18 Completed CAT scan 9 01/13/18 Completed X-ray 10 01/13/18 Completed Mammogram 11 10/16/17 Completed Mammogram 12 01/13/16 Completed Colonoscopy 13 02/03/15 Completed Fixation of fracture using i nternal fixator Completed Hysterectomy 14 Completed Partial thyroidectomy Com pleted Tonsillectomy Completed 1impression: no fractures within the cervical spine 2impression: 1. minimal chronic small vessel ischemic chanfe. no acute intracranial abnormality 3impression: 1. acute appearing nondisplaced bilateral scral ala fractures 2. acute minimally displaced fractures through the S2 vertebral body with slight angulation 4IMPRESSION: Moderate bony degeneratvie changes for age group without fracture nor dislocation evident. Hower, if symptomatolgoy does persist, a short term f/u series for comparison is recommended. 5impression: 1. no actue pelvic ring fracture identified 2. suspected acute versus subactue upper sacral fracture 6impression: 1. no acute pelvic ring fracture identified 2. suspected acute versus subacute upper sacral fracture 7impression: 1. age- indeterminate fracture of the upper sacrum is noted with 1.2cm anterolisthesis S1 on S2, new from 04/24/2019 this is suspicious for an acute or subacute fracture 2. remote T10 and L1 compression deformities 3. multilevel dengeneratie changes as above. 8CT LUMBAR SPINE WITHOUT IMPRESSION: 1) Mild to moderate acute/subacute superior endplate L1 compression fracture 2) Multilevel spondylitic change. Mild Spinal stenosis the L2-3 LEVEL, mild to moderated spinal stenosis at the L3-4 and L4-5 levels 3) Punctate nonobstructing right renal calculus 9Pelvis CT IMPRESSION: 1) Tiny lucencythrough the posterior lip of the right acetablulum. This may represent an age-indeterminate fracture versus chronic osteophyte 2) A 6.4 cm right adnenxal cystic lesion. Follow up nonemergent pelvic ultrasound is recommended. This is considered to be pathologic is a postmenopausal female. 10PELVIS AND BILATERAL HIP 5 VIEWS IMPRESSION 1) Right os acetabulum versus fracture of the posterior lip of the right acetabulum. Pplease correlate with the patients site of pain 2) No proximal femoral fractures identified. 11wnl 12Amendment 02/22/2016: [facility], 10/06/09, 12/14/10, 02/06/12., 03/26/13, 03/27/14 and 04/07/15 became available for review. The groupedand clustered punctate microcalcifications in the upper outer left breast are stable dating back to2009, therefore considered benign. No other significant intercal change is detected mamographically. Therefore, advise follow up in 1 ear for next annual screening mammogram. 13normal 14aug 2018 Vital Signs Most recent to oldest [Reference Range]: 1 Height 157.5 cm (11/04/24 10:28 AM) Patient Weight 66.0 kg (11/04/24 10:28 AM) Body Mass Index 26.61 kg/m2 (11/04/24 10:28 AM) Temperature [36.5-37.9 DegC] 36.1 DegC *LOW* (11/04/24 10:28 AM) Heart Rate 68 bpm (11/04/24 10:28 AM) Blood Pressure 122/80mmHg (11/04/24 10:28 AM) Cuff Pulse Pressure 42 mmHg (11/04/24 10:28 AM) Social History Social History Type Response Smoking Status Never smoked cigaret teressa Sex Female Sex Representation Female (finding) [facility]CM Outpt Note * DO De La Fuente Kristen M: PERFORM Event Display: [facility] Outpt Note Authored Date: [id number] Chief Complaint Yearly. Ear pain. Has questions about bloodwork. History of Present Illness Yearly exam. Physical Exam Vitals & Measurements T: 36.1 °C HR: 68 (Monitored) BP: 122/80 SpO2: 93% HT: 157.5 cm WT: 66.0 kg WT: 66.000 kg (Dosing) BMI: 26.61 G: AAAOx3, NAD H: RR normal S1/S2 no M/R/G L: CTA b/l no r/r/w HEENT: external ear canal and TM wnl, oral mucosa moist, no lymphadenopathy A: soft +bs nt nd E: no c/C/E b/l, pos distal pulses P: normal affect and insight, no homicidal/suicidal ideation Assessment/Plan 1. Alzheimer's dementia Chronic condition, stable Goal:Resolution Data:unique tests ordered: _ Plan: _severe but should optimize #2 2. Hypothyroid Chronic condition, stable Goal:Resolution Data:unique tests ordered: _ Plan: _increase dose and recheck in 6 weeks Attestation I spent 4 min time in previsit planning including prepping note and chart review . I spent 24 time in face to face interaction with patient concerning the issues that brought them in today. I spent 4 min time in post visit planning including finishing note and depart process Total time spent today on patient visit 32 min Problem List/Past Medical History Ongoing Actinic keratosis Alzheimer's dementia Ambulatory dysfunction Anemia Anxiety AVNRT (AV reid re-entry tachycardia) Depression Dermatitis History of basal cell carcinoma of skin Hx of reduction of closed fracture Hypothyroid Impingement syndrome of left shoulder Left low back pain Left lumbar radiculopathy Neuropathy Osteopenia POLST (Physician Orders for Life-Sustaining Treatment) S/P ORIF (open reduction internal fixation) fracture S/P MEDINA-BSO Seborrheic keratoses Skin cancer, basal cell Spondylolisthesis, lumbar region Tendinitis involving left hip abductors Tinnitus Weight loss Weight loss observed on examination Wound of skin Xerosis cutis Resolved Adnexal cyst Bruise Dementia Distal radius fracture, left Endometrial hyperplasia Ovarian mass Paroxysmal SVT (supraventricular tachycardia) Procedure/Surgical History •Pelvis X-ray| Service Date: 01/13/2020•Plain X-ray lumbar spine| Service Date: 01/13/2020•Pelvis X-ray| Service Date: 01/13/2020•CT of pelvis without contrast| Service Date: 01/13/2020•CT cervical spine| Service Date: 01/13/2020•CT of head brain wo con| Service Date: 01/13/2020•Hip X-ray left with pelvis| Service Date: 01/13/2020•X-ray| Service Date: 01/13/2018•CAT scan| Service Date: 01/13/2018•CAT scan| Service Date: 01/13/2018•Mammogram| Service Date: 10/16/2017•Mammogram| Service Date: 01/13/2016•Colonoscopy| Service Date: 02/03/2015•Fixation of fracture usinginternal fixator•Partial thyroidectomy•Tonsillectomy•Hysterectomy Medications acetaminophen(Tylenol 325 mg oral tablet), 650 mg= 2 tab, PO, q4h, PRN atenolol(atenolol 25 mg oral tablet), 12.5 mg= 0.5 tab, PO, Daily, 3 refills cholecalciferol(Vitamin D3 1000 intl units (25 mcg) oral capsule), 25 mcg= 1 cap, PO, Daily, 3 refills lactase(Lactaid) levothyroxine(levothyroxine 88 mcg (0.088 mg) oral tablet), 88 mcg= 1 tab, PO, Daily melatonin(melatonin 5 mg oral tablet), 5 mg= 1 tab, PO, qhs, PRN multivitamin(One-A-Day 50+ oral tablet), 1 tab, PO, Daily naproxen(naproxen 500 mg oral tablet), 500 mg= 1 tab, PO, bid, PRN PARoxetine(PARoxetine 30 mg oral tablet), 1 tab, PO, qPM QUEtiapine(Seroquel 50 mg oral tablet), 50 mg= 1 tab, PO, qhs Allergies Ammoniated Mercury hives codeine vomiting Social History Smoking Status Never smoked cigarettes Tobacco - Denies Tobacco Use Use:Never smoker Intake (IView) Smoking History Cigarette smoker: Never smoked cigarettes Tobacco Product Use: Never used other tobacco products SHX E-Cigarette Use: Never Family History CABG - Coronary artery bypass graft: Father. Heart disease: Father. High blood pressure: Mother and Father. Palpitations: Mother and Daughter. Health Status Family Member(s) Immunizations Vaccine Date Status tetanus/diphtheria/pertuss, acel (Tdap) 03/07/2023 Recorded SARS-CoV-2 mRNA (Pfizer 12+) bivalent 03/06/2023 Recorded Comments : 2023-06-15: Historical information-source unspecified tetanus/diphtheria/pertuss, acel (Tdap) 03/01/2023 Recorded Comments : 2023-06-15: Historical information-source unspecified influenza virus vaccine, inactivated 05/25/2021 Recorded SARS-CoV-2 (COVID-19) mRNA BNT-162b2 vax 10/16/2020 Recorded SARS-CoV-2 (COVID-19) mRNA BNT-162b2 vax 09/25/2020 Recorded influenza virus vaccine, inactivated 06/26/2019 Given influenza virus vaccine, inactivated 06/14/2018 Given pneumococcal 13-valent vaccine 09/13/2017 Given influenza virus vaccine, inactivated 06/01/2017 Given influenza virus vaccine, inactivated 06/22/2016 Given Recommendations Health Maintenance Pending (in the next year) OverDue Medicare Annual Wellness Visit due 09/16/20 and every 1 year Lipid Screening due 11/30/22 and every 1826 day Adult Influenza Vaccine due 02/25/24 and every 1 year Due Adult Social Determinants of Health Screening due 11/04/24 Unknown Frequency Pneumococcal Vaccine Older Adults due 11/04/24 One-time only Seasonal COVID 19 Vaccine due 11/04/24 Unknown Frequency Shingles Vaccine due 11/04/24 One-time only Satisfied (in the past 1 year) Satisfied Body Mass Index on 11/04/24. Satisfied by CORY Wheatley Angela Electronic Signature on File Electronically Reviewed/Signed by: Coni De La Fuente DO Author Signature Dt/Tm:11/04/2024 11:22 AM Department of Family Medicine [facility] Patient Care team information Care Team Personnel Name: DO De La Fuente Kristen M Position: Physician - Family Med Member Role: Primary Care Provider Address: [address] [place] [address] Telecom: [phone] Care Team Related Persons Name: DENNY VIVEROS Insurance Providers Guarantor name: JA Alysa KAMRAN Health Plan Information #: 1 Payer: MEDICARE Member Number: [id number] Policy Number: NA Group Number: NA Health Plan Information #: 2 Payer: [employer] Member Number: [id number] Policy Number: NA Group Number: NA"
--- NOTE | 2025-01-02 23:39 | Emergency Department Note ---
Impression & Plan Acute alteration in mental status, Cellulitis of leg, right ED Provider Note NAME: JA ANDREW AGE: 84 SEX: F : 1940 ARRIVES VIA: Ambulance INFORMANT: Patient, EMS, the patient's family ED PROVIDER(S): Herberth Jaeger DO CHIEF COMPLAINT: Confusion HPI: The patient is an 84-year-old female who presented to the emergency department from her personal-[facility]ci for an evaluation of confusion and strokelike symptoms. The patient has been confused and showing signs of altered mental status over the course of the last few hours. Her last known well time was approximately 10 to 10:30 PM. She is a comfort measures only patient. She lives in the dementia unit. They feel as though she has been slurring her words and having difficulty ambulating. There was no reported falls. The patient himself offers no complaints but her history is difficult to ascertain. ROS: See above HPI for pertinent positives & negatives. A total of 10 systems reviewed and were otherwise negative. PAST MEDICAL HISTORY: See Below PAST SURGICAL HISTORY: See Below FAMILY HISTORY: See Below SOCIAL HISTORY: See Below HOME MEDICATIONS: See Below ALLERGIES: See Below VITALS: See Below PHYSICAL EXAMINATION: GENERAL: The patient is awake to verbal commands. She does follow commands slowly and appropriately. EYES: The conjunctivae are clear. The pupils are round and reactive. EARS, NOSE, MOUTH AND THROAT: The nose is without any evidence of any deformity. Mucous membranes are dry. NECK: The neck is nontender and supple. RESPIRATORY: Normal respiratory effort is noted there is no evidence of wheezing rhonchi or rales CARDIOVASCULAR: Regular rate and rhythm noted there no murmurs rubs or gallops normal S1 normal S2. GASTROINTESTINAL: The abdomen is soft. Abdomen is nontender. MUSCULOSKELETAL/EXTREMITIES: There is no evidence of gross deformity full range of motion is noted in the hips and shoulders. There is pain with range of motion testing of the right ankle. SKIN: There is no obvious evidence of any rash. Ecchymosis was noted over the lateral right foot as well as the lateral right ankle. There was no tenderness or swelling over the right knee. NEUROLOGIC: Patient is awake to verbal commands. She is oriented only to person. Strength was symmetric but diminished. Speech was soft. MEDICAL DECISION MAKING: The patient is an 84-year-old female who presented to the emergency department for an evaluation of altered mental status. The patient did not have significant hypertension or focal neurologic deficits. It was difficult to obtain history from the patient. The patient was reportedly sent for slurred speech and difficulty ambulating. She does have significant pain in her right leg. When the family arrived they do agree that her speech seems somewhat off and she is more listless than her baseline but given the time of evening I am unsure if this does represent strokelike symptoms. I discussed the possibility of stroke with the patient's family. They do state that she would not likely want to have aggressive measures such as thrombolytics or mechanical thrombectomy. Plain CT was obtained and shows no acute process. Given the findings on physical exam I do feel the patient may be suffering from cellulitis she does have ecchymosis and swelling as well as erythema of the right leg. It appears to be in an area where she has had previous surgery. X-ray showed no free air or obvious fracture. There was the fixation nail noted. Given her findings I did discuss patient's condition [facility] She was treated with IV fluids and IV antibiotics. Triage Nursing notes reviewed. Prior medical records reviewed Vital Signs: reviewed and remarkable for no significant abnormalities Differential diagnosis: Infection, hypoglycemia, electrolyte abnormalities, overdose, toxicologic, cardiac sources, intracerebral event, neurologic, trauma, as well as other pathologies. ER treatment provided: See below Diagnostics interpreted by me: ECG: EKG was obtained in the emergency department. My interpretation is normal sinus rhythm at 74 bpm. PVCs were noted. Nonspecific ST abnormalities were noted. LVH was suggested by voltage criteria. This was compared to a tracing from March 01, 2023. No changes were noted. Cardiac Monitoring: An order was placed for continuous cardiac monitoring. The monitor shows a rate of 68 bpm with sinus rhythm. Laboratory studies: As stated above and show below. Imaging studies: See below. Radiographic imaging was reviewed by myself Consultation(s): I discussed this case with Dr. Melchor who is [facility]. ED COURSE: The patient's family members did come to the emergency department to be with her. I discussed the patient's presentation with them. They do agree that the patient's symptoms did begin this evening. I discussed some of the possible causes which could include a stroke. I discussed some of the treatments that we would use for these conditions such as mechanical thrombectomy as well as TNK. They do not feel the patient would want either of those interventions. They do not feel that she would want to be transferred for any those interventions. The plain CT did not show any acute process. She may require further inpatient workup to determine if this is a stroke but at this time I will defer further workup to the inpatient team. Past Med/Surg History Problem List (Updated 01/03/25 @ 01:34 by Herberth Jaeger DO) Cellulitis of leg, right (Acute) Acute alteration in mental status (Acute) Fall (Acute) Laceration of lip (Acute) Knee pain, left (Acute) Acute UTI (Acute) Dementia (Acute) Lumbar compression fracture (Chronic) Spinal stenosis of lumbar region (Chronic) Paroxysmal SVT (supraventricular tachycardia) (Chronic) Cognitive impairment (Chronic) Corneal abrasion (Acute) Fall (Acute) Left wrist fracture (Acute) Progressive dementia with uncertain etiology Urethral caruncle (Acute) Stroke syndrome (Chronic) Osteoporosis (Chronic) Numbness (Chronic) Lacunar infarction (Chronic) Dementia (Chronic) Medical History (Updated 01/03/25 @ 01:34 by Herberth Jaeger DO) Chest pain Chest pain Stroke listed on past problem list/ pts daughter states it was Not stroke/ just symptoms associated with the SVT which has now been corrected with ablation Hearing deficit Osteoporosis Spinal stenosis History of anesthesia reaction very confused with anesthesia Osteoarthritis Chronic back pain Hypothyroidism Anxiety Alzheimer disease "probable" poor historian Surgical History History of colonoscopy History of hysterectomy H/O cardiac radiofrequency ablation 2016/ sue/ sees Dr. Gomez/ had for "irregular heartbeat" no more issues with it History of tonsillectomy History of thyroidectomy History of ankle surgery pt unsure which side Family History Father Coronary heart disease Cardiac disorder Hypertension Mother Diabetes Lymphoma Heart problem Social History Smoking Status: Never smoker Second Hand Exposure: No; Do You Dip or Chew Tobacco: No; Hx Alcohol Use: No Hx Substance Use: No Preferred Language: Turkmen Communication Ability: Impaired Medical Social Worker Required: No Beliefs That Will Affect Care: None Current Living Situation: Skilled Nursing Current Living Situation Comment: [place] Feels Safe at Home: Yes Assistive Devices: Cane and Glasses Allergies Allergies Allergy/AdvReac Type Severity Reaction Status Date / Time mercury (elemental) Allergy Unknown Hives Verified 02/16/20 13:12 codeine AdvReac Unknown Gastrointestinal Verified 02/16/20 13:12 Upset Home Meds Home Medications Medication Instructions Recorded Confirmed atenolol 25 mg tablet 12.5 mg PO QAM 01/13/20 01/03/25 acetaminophen 500 mg tablet 1,000 mg PO Q8 PRN Fever Or Pain 01/03/25 01/03/25 (Tylenol Extra Strength) lactase 3,000 unit tablet (Lactaid) 3,000 unit PO AC PRN meal or snack 01/03/25 01/03/25 heavy in dairy levothyroxine 100 mcg tablet 100 mcg PO DAILY 01/03/25 01/03/25 melatonin 5 mg tablet 5 mg PO HS 01/03/25 01/03/25 multivitamin with minerals 1 tab PO QAM 01/03/25 01/03/25 (Multiple Vitamin-Minerals tablet) naproxen sodium 220 mg tablet 440 mg PO Q12H PRN chronic 01/03/25 01/03/25 osteoarthritis paroxetine HCl 40 mg tablet 40 mg PO QPM 01/03/25 01/03/25 pramoxine 1 % lotion (Sarna 1 applic topical QS 01/03/25 01/03/25 Sensitive) quetiapine 100 mg tablet (Seroquel) 100 mg PO HS 01/03/25 01/03/25 Previous Rx's Medication Instructions Recorded cholecalciferol (vitamin D3) 25 2,000 unit PO QAM #60 caps 01/15/20 mcg (1,000 unit) capsule Results & Data (ED) Vital Signs Vital Signs - 24 hr 01/02/25 23:16 01/02/25 23:16 01/02/25 23:16 Temperature 36.7 C Temperature Source Axillary Pulse Rate 66 Pulse Rate [Apical] 68 Pulse Rate from SpO2 Sensor Pulse Rhythm Regular Pulse Rhythm [Apical] Regular Pulse Strength Normal Pulse Strength [Apical] Normal Respiratory Rate 20 16 Respiratory Effort / Characteristics Non-Labored Spontaneous Non-Labored Spontaneous Respiratory Depth Normal Normal Respiratory Pattern Regular Regular Blood Pressure 124/62 Blood Pressure [Left Arm] 124/62 Blood Pressure Mean 82 Blood Pressure Mean [Left Arm] 82 Blood Pressure Position Lying Blood Pressure Position [Left Arm] Lying Pulse Oximetry 93 95 94 Oxygen Delivery Method Room Air Room Air Room Air Oxygen Flow Rate 0 Sepsis Recent Fever Within 48 Hours No Sepsis New/Unexplained Change in Mental Status Yes Sepsis Action Taken by Nursing No Action Required 01/02/25 23:31 01/02/25 23:40 01/02/25 23:48 Temperature Temperature Source Pulse Rate 67 78 69 Pulse Rate [Apical] Pulse Rate from SpO2 Sensor 63 Pulse Rhythm Regular Pulse Rhythm [Apical] Pulse Strength Pulse Strength [Apical] Respiratory Rate 14 14 Respiratory Effort / Characteristics Respiratory Depth Respiratory Pattern Blood Pressure Blood Pressure [Left Arm] Blood Pressure Mean Blood Pressure Mean [Left Arm] Blood Pressure Position Blood Pressure Position [Left Arm] Pulse Oximetry 96 95 Oxygen Delivery Method Room Air Oxygen Flow Rate Sepsis Recent Fever Within 48 Hours Sepsis New/Unexplained Change in Mental Status Sepsis Action Taken by Nursing 01/02/25 23:53 01/02/25 23:57 01/03/25 00:00 Temperature Temperature Source Pulse Rate 67 Pulse Rate [Apical] Pulse Rate from SpO2 Sensor 67 Pulse Rhythm Pulse Rhythm [Apical] Pulse Strength Pulse Strength [Apical] Respiratory Rate 16 Respiratory Effort / Characteristics Respiratory Depth Respiratory Pattern Blood Pressure 137/87 123/71 Blood Pressure [Left Arm] Blood Pressure Mean 96 89 Blood Pressure Mean [Left Arm] Blood Pressure Position Blood Pressure Position [Left Arm] Pulse Oximetry 93 Oxygen Delivery Method Oxygen Flow Rate Sepsis Recent Fever Within 48 Hours Sepsis New/Unexplained Change in Mental Status Sepsis Action Taken by Nursing 01/03/25 00:00 01/03/25 00:18 01/03/25 00:20 Temperature Temperature Source Pulse Rate 63 Pulse Rate [Apical] Pulse Rate from SpO2 Sensor 65 Pulse Rhythm Pulse Rhythm [Apical] Pulse Strength Pulse Strength [Apical] Respiratory Rate 26 H Respiratory Effort / Characteristics Respiratory Depth Respiratory Pattern Blood Pressure 123/71 Blood Pressure [Left Arm] Blood Pressure Mean 89 Blood Pressure Mean [Left Arm] Blood Pressure Position Blood Pressure Position [Left Arm] Pulse Oximetry 93 94 Oxygen Delivery Method Room Air Oxygen Flow Rate Sepsis Recent Fever Within 48 Hours Sepsis New/Unexplained Change in Mental Status Sepsis Action Taken by Nursing 01/03/25 00:30 01/03/25 00:51 01/03/25 00:54 Temperature Temperature Source Pulse Rate 69 73 Pulse Rate [Apical] Pulse Rate from SpO2 Sensor 67 76 Pulse Rhythm Pulse Rhythm [Apical] Pulse Strength Pulse Strength [Apical] Respiratory Rate 18 Respiratory Effort / Characteristics Respiratory Depth Respiratory Pattern Blood Pressure 134/67 Blood Pressure [Left Arm] Blood Pressure Mean 82 Blood Pressure Mean [Left Arm] Blood Pressure Position Blood Pressure Position [Left Arm] Pulse Oximetry 95 94 Oxygen Delivery Method Oxygen Flow Rate Sepsis Recent Fever Within 48 Hours Sepsis New/Unexplained Change in Mental Status Sepsis Action Taken by Nursing 01/03/25 01:01 01/03/25 01:01 01/03/25 01:06 Temperature Temperature Source Pulse Rate 77 Pulse Rate [Apical] Pulse Rate from SpO2 Sensor 75 Pulse Rhythm Pulse Rhythm [Apical] Pulse Strength Pulse Strength [Apical] Respiratory Rate 15 Respiratory Effort / Characteristics Respiratory Depth Respiratory Pattern Blood Pressure 120/59 L 120/59 L Blood Pressure [Left Arm] Blood Pressure Mean 89 89 Blood Pressure Mean [Left Arm] Blood Pressure Position Blood Pressure Position [Left Arm] Pulse Oximetry 95 Oxygen Delivery Method Oxygen Flow Rate Sepsis Recent Fever Within 48 Hours Sepsis New/Unexplained Change in Mental Status Sepsis Action Taken by Nursing 01/03/25 01:24 Temperature Temperature Source Pulse Rate 68 Pulse Rate [Apical] Pulse Rate from SpO2 Sensor 71 Pulse Rhythm Pulse Rhythm [Apical] Pulse Strength Pulse Strength [Apical] Respiratory Rate Respiratory Effort / Characteristics Respiratory Depth Respiratory Pattern Blood Pressure Blood Pressure [Left Arm] Blood Pressure Mean Blood Pressure Mean [Left Arm] Blood Pressure Position Blood Pressure Position [Left Arm] Pulse Oximetry 94 Oxygen Delivery Method Oxygen Flow Rate Sepsis Recent Fever Within 48 Hours Sepsis New/Unexplained Change in Mental Status Sepsis Action Taken by Skilled Nursing Medications Current Medication List: was personally reviewed by me Laboratory Data Attestation: I reviewed the patient's lab results. 01/02/25 23:43 01/02/25 23:43 Lab Results 01/02/25 01/02/25 01/02/25 Range/Units 23:38 23:43 23:44 WBC 7.31 (4.8-10.8) K/ul RBC 4.01 L (4.20-5.40) M/uL Hgb 11.8 L (12.0-16.0) g/dl Hct 35.9 L (37.0-47.0) % MCV 89.5 (80.0-100.0) fL MCH 29.4 (25.0-34.0) pg MCHC 32.9 (32.0-36.0) g/dL RDW Std Deviation 43.1 (36.4-46.3) fL RDW Coeff of Ruiz 13.1 (11.5-14.5) % Plt Count 217 (130-400) K/uL MPV 11.1 (9.4-12.4) fL Immature Gran % (Auto) 0.3 % Neut % (Auto) 56.9 % Lymph % (Auto) 25.4 % [place] % (Auto) 13.7 % Eos % (Auto) 3.0 % Baso % (Auto) 0.7 % Neut # (Auto) 4.16 (1.40-6.50) K/uL Lymph # (Auto) 1.86 (1.20-3.40) K/uL [place] # (Auto) 1.00 H (0.11-0.59) K/uL Eos # (Auto) 0.22 (0.00-0.50) K/uL Baso # (Auto) 0.05 (0.00-0.20) K/uL Immature Gran # (Auto) 0.02 (0.01-0.20) K/uL PT Cancelled INR Cancelled APTT Cancelled PTT Ratio Cancelled VBG pH (7.36-7.41) VBG pCO2 (38-50) mmHg VBG pO2 mmHg VBG HCO3 mmol/L VBG O2 Saturation % VBG Base Excess mEq/L Sodium 137 (136-145) mmol/L Potassium 4.0 (3.5-5.1) mmol/L Chloride 106 (98-107) mmol/L Carbon Dioxide 27 (21-32) mmol/L Anion Gap 4 (3-11) BUN 24 H (6-23) mg/dl Creatinine 0.95 (0.6-1.2) mg/dl Est Cr Clr Drug Dosing 42.2 ml/min eGFR 59.45 BUN/Creatinine Ratio 25.3 H (10-20) Glucose 115 H (70-99(Fasting)) mg/dl Lactate 1.1 (0.4-2.0) mmol/L Calcium 9.4 (8.6-10.3) mg/dl Magnesium 2.0 (1.7-2.4) mg/dl Total Bilirubin 1.0 (0.2-1.0) mg/dl Direct Bilirubin 0.2 (0-0.2) mg/dl AST 22 (13-39) U/L ALT 14 (7-52) U/L Alkaline Phosphatase 46 (34-104) U/L Troponin I High Sens 8.8 (0-14) pg/ml Total Protein 7.5 (6.0-8.3) gm/dl Albumin 3.7 (3.4-5.0) gm/dl Procalcitonin 0.02 (0-0.5) ng/ml Urine Color Yellow Urine Appearance Cloudy A (Clear) Urine pH 5.5 (4.5-7.5) Ur Specific [place] 1.025 (1.000-1.030) Urine Protein Trace H (Negative) Urine Glucose (UA) Negative (Negative) Urine Ketones Trace H (Negative) Urine Blood Negative (Negative) Urine Nitrite Negative (Negative) Urine Bilirubin Negative (Negative) Urine Urobilinogen Negative (Negative) Ur Leukocyte Esterase Negative (Negative) Urine WBC (Auto) 0-5 (0-5) /hpf Urine RBC (Auto) 0-2 (0-2) /hpf U Hyaline Cast (Auto) 0-2 (0-2) /lpf U Epithel Cells (Auto) 0-2 (0-2) /hpf Urine Bacteria (Auto) 4+ H (None Seen) SARS-CoV-2 (PCR) (Negative) Influenza Type A (PCR) (Neg) Influenza Type B (PCR) (Neg) RSV (RT-PCR) (Neg) 01/02/25 01/03/25 Range/Units 23:53 00:02 WBC (4.8-10.8) K/ul RBC (4.20-5.40) M/uL Hgb (12.0-16.0) g/dl Hct (37.0-47.0) % MCV (80.0-100.0) fL MCH (25.0-34.0) pg MCHC (32.0-36.0) g/dL RDW Std Deviation (36.4-46.3) fL RDW Coeff of Ruiz (11.5-14.5) % Plt Count (130-400) K/uL MPV (9.4-12.4) fL Immature Gran % (Auto) % Neut % (Auto) % Lymph % (Auto) % [place] % (Auto) % Eos % (Auto) % Baso % (Auto) % Neut # (Auto) (1.40-6.50) K/uL Lymph # (Auto) (1.20-3.40) K/uL [place] # (Auto) (0.11-0.59) K/uL Eos # (Auto) (0.00-0.50) K/uL Baso # (Auto) (0.00-0.20) K/uL Immature Gran # (Auto) (0.01-0.20) K/uL PT INR APTT PTT Ratio VBG pH 7.37 (7.36-7.41) VBG pCO2 45 (38-50) mmHg VBG pO2 32 mmHg VBG HCO3 26 mmol/L VBG O2 Saturation < 60.0 % VBG Base Excess 0.3 mEq/L Sodium (136-145) mmol/L Potassium (3.5-5.1) mmol/L Chloride (98-107) mmol/L Carbon Dioxide (21-32) mmol/L Anion Gap (3-11) BUN (6-23) mg/dl Creatinine (0.6-1.2) mg/dl Est Cr Clr Drug Dosing ml/min eGFR BUN/Creatinine Ratio (10-20) Glucose (70-99(Fasting)) mg/dl Lactate (0.4-2.0) mmol/L Calcium (8.6-10.3) mg/dl Magnesium (1.7-2.4) mg/dl Total Bilirubin (0.2-1.0) mg/dl Direct Bilirubin (0-0.2) mg/dl AST (13-39) U/L ALT (7-52) U/L Alkaline Phosphatase (34-104) U/L Troponin I High Sens (0-14) pg/ml Total Protein (6.0-8.3) gm/dl Albumin (3.4-5.0) gm/dl Procalcitonin (0-0.5) ng/ml Urine Color Urine Appearance (Clear) Urine pH (4.5-7.5) Ur Specific [place] (1.000-1.030) Urine Protein (Negative) Urine Glucose (UA) (Negative) Urine Ketones (Negative) Urine Blood (Negative) Urine Nitrite (Negative) Urine Bilirubin (Negative) Urine Urobilinogen (Negative) Ur Leukocyte Esterase (Negative) Urine WBC (Auto) (0-5) /hpf Urine RBC (Auto) (0-2) /hpf U Hyaline Cast (Auto) (0-2) /lpf U Epithel Cells (Auto) (0-2) /hpf Urine Bacteria (Auto) (None Seen) SARS-CoV-2 (PCR) NEGATIVE (Negative) Influenza Type A (PCR) Negative (Neg) Influenza Type B (PCR) Negative (Neg) RSV (RT-PCR) Negative (Neg) Administered Medications Discontinued Medications Ceftriaxone Sodium (Rocephin) 2,000 mg in 50 mls @ 100 mls/hr IV NOW STA Stop: 01/03/25 01:17 Last Admin: 01/03/25 00:57 Dose: 100 mls/hr Documented By: AYDIN Sodium Chloride (Nss) 500 mls @ 999 mls/hr IV .Q31M ONE Stop: 01/03/25 01:23 Last Admin: 01/03/25 00:56 Dose: 999 mls/hr Documented By: AYDIN Imaging Data Attestation: I personally reviewed and interpreted this imaging study as follows: My Impression: CT of the brain was obtained in the emergency department. My interpretation is no intracranial hemorrhage or mass effect, final report below. X-ray of the right foot and right ankle were obtained in the emergency department. No definite fracture was noted. Nonunion of the right distal fibula as well as a fixation hardware was noted. Final report below. 1 view chest x-ray was obtained in the emergency department. My interpretation is poor inspiratory effort, no free air, final report below. Radiologist's Impression: Ankle X-Ray 01/02/25 23:31 EXAM: XR ankle RT min 3V routine CLINICAL HISTORY: swelling TECHNIQUE: Radiograph of right ankle was acquired. 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 The talar dome is unremarkable. The ankle mortise is intact. The soft tissues appear unremarkable. IMPRESSION: 1. 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 Electronically signed by Kalen Reina 01-03-2025 01:22 AM Chest X-Ray 01/02/25 23:31 EXAM: XR chest 1V portable CLINICAL HISTORY: Sepsis TECHNIQUE: Radiograph of chest was acquired. 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 Bilateral perihilar congestion. Blunting of bilateral costophrenic angles. The cardiomediastinal silhouette is within normal limits. No acute osseous abnormality. IMPRESSION: 1. Prominent bilateral bronchovascular shadows. 2. Bilateral perihilar congestion. 3. Blunting of bilateral costophrenic angles- Small effusion vs soft tissue overlap. Suggested ultrasound correlation. 4. Compared with prior study all are new findings. Electronically signed by Kalen Reina 01-03-2025 01:25 AM Foot X-Ray 01/02/25 23:31 EXAM: XR foot RT min 3V routine CLINICAL HISTORY: swelling TECHNIQUE: Radiograph of right foot was acquired. COMPARISON: none FINDINGS: Fixation nail seen in distal fibula. There is no evidence of acute fracture, dislocation or osseous lesion. The sesamoid complex is well approximated. The joint spaces appear preserved. Tarsal bones are well aligned. The soft tissues are unremarkable. IMPRESSION: 1. No acute osseous or soft tissue abnormality in foot Electronically signed by Kalen Reina 01-03-2025 01:[address] 01/02/25 23:32 EXAM: CT head/brain wo con CLINICAL HISTORY: ams TECHNIQUE: Multiple axial images are obtained from the skull base to the vertex without contrast. CT scan was performed according to ALARA (as low as reasonable achievable). COMPARISON: None. FINDINGS: There is cerebral atrophy. No evidence of space occupying lesion, hemorrhage, edema, mass effect, midline shift, extra axial collection, or hydrocephalus is noted. Basal cisterns are symmetric and normal in size and configuration. There are scattered periventricular hypodensities as can be seen with chronic microvascular ischemic changes. The ratliff-white matter differentiation is preserved. Visualized paranasal sinuses and mastoid air cells are well aerated. Orbital contents are within normal limits. Bony structures are intact. IMPRESSION: 1. No evidence of acute intracranial abnormality is demonstrated. 2. Chronic microvascular ischemic changes. 3. Cerebral atrophy. Electronically signed by Kalen Reina 01-03-2025 12:36 AM Discharge Plan Visit Data Chief Complaint: Altered Mental Status Stated Complaint: LETHARGIC, ALTERED ED Provider: Herberth Jaeger Discharge Problem: Acute alteration in mental status, Cellulitis of leg, right Patient Disposition: Being Evaluated by Hospitalist Condition: Good Forms Stand Alone Forms: My [facility] Prescriptions Prescriptions: No Action atenolol 25 mg tablet 12.5 mg PO QAM cholecalciferol (vitamin D3) 25 mcg (1,000 unit) Capsule 2,000 unit PO QAM Qty: 60 2RF levothyroxine 100 mcg Tablet 100 mcg PO DAILY Multiple Vitamin-Minerals Tablet 1 tab PO QAM melatonin 5 mg Tablet 5 mg PO HS naproxen sodium 220 mg Tablet 440 mg PO Q12H PRN (Reason: chronic osteoarthritis) Rx Instructions: 2 tablet dose lactase [Lactaid] 3,000 unit Tablet 3,000 unit PO AC PRN (Reason: meal or snack heavy in dairy) Rx Instructions: administer with meals and/or snacks pramoxine [Sarna Sensitive] 1 % Lotion 1 applic TOPICAL QS Rx Instructions: apply to all 4 extremities/trunk every shift for dermatitis paroxetine HCl 40 mg Tablet 40 mg PO QPM quetiapine [Seroquel] 100 mg Tablet 100 mg PO HS acetaminophen [Tylenol Extra Strength] 500 mg Tablet 1,000 mg PO Q8 PRN (Reason: Fever Or Pain) Referrals Referrals: Kasandra bee,[place] [Non-Staff] -
[2025-01-02 23:58] LABS: Appearance Urine Cloudy (Clear); Bacteria Urine Automated 4+ (None Seen); Bilirubin Urine Negative (Negative); Blood Urine Negative (Negative); Cast Urine Automated 0-2 /lpf (0-2); Color Urine Yellow; Epithelial Cell Urine Auto 0-2 /hpf (0-2); Glucose Urine UA Negative (Negative); Ketones Urine Trace (Negative); Leukocyte Esterase Urine Negative (Negative); Nitrite Urine Negative (Negative); Protein Urine Trace (Negative); RBC Urine Automated 0-2 /hpf (0-2); Specific Gravity Urine 1.025 (1.000-1.030); Urobilinogen Urine Negative (Negative); WBC Urine Automated 0-5 /hpf (0-5); pH Urine 5.5 (4.5-7.5)
[2025-01-02 23:59] LABS: Basophils # (auto) 0.05 K/uL (0.00-0.20); Basophils % (auto) 0.7 %; Eosinophils # (auto) 0.22 K/uL (0.00-0.50); Hematocrit (blood only) 35.9 % (37.0-47.0); Hemoglobin 11.8 g/dl (12.0-16.0); Immature Granulocytes # (auto) 0.02 K/uL (0.01-0.20); Immature Granulocytes % (auto) 0.3 %; Lymphocytes # (auto) 1.86 K/uL (1.20-3.40); Lymphocytes % (auto) 25.4 %; Mean Corpuscular Hemoglobin 29.4 pg (25.0-34.0); Mean Corpuscular Hgb Conc 32.9 g/dL (32.0-36.0); Mean Corpuscular Volume 89.5 fL (80.0-100.0); Mean Platelet Volume 11.1 fL (9.4-12.4); Monocytes % (auto) 13.7 %; Neutrophils # (auto) 4.16 K/uL (1.40-6.50); Neutrophils % (auto) 56.9 %; Platelet Count 217 K/uL (130-400); RDW Coefficient of Variation 13.1 % (11.5-14.5); RDW Standard Deviation 43.1 fL (36.4-46.3); Red Blood Count 4.01 M/uL (4.20-5.40); White Blood Count 7.31 K/ul (4.8-10.8)
[2025-01-03 00:08] LABS: Base Excess VBG 0.3 mEq/L; HCO3 VBG 26 mmol/L; Oxygen Saturation VBG < 60.0 %; PCO2 VBG 45 mmHg (38-50); PO2 VBG 32 mmHg; pH VBG 7.37 (7.36-7.41)
[2025-01-03 00:18] LABS: Albumin Level 3.7 gm/dl (3.4-5.0); BUN Creatinine Ratio 25.3 (10-20); Bilirubin Direct 0.2 mg/dl (0-0.2); Calcium 9.4 mg/dl (8.6-10.3); Creatinine Clr Calc Pharmacy 42.2 ml/min; Total Protein 7.5 gm/dl (6.0-8.3)
[2025-01-03 00:24] LABS: Troponin I High Sensitivity 8.8 pg/ml (0-14)
[2025-01-03 00:35] LABS: Influenza A virus by PCR Negative (Neg); Influenza B virus by PCR Negative (Neg); RSV by PCR Negative (Neg); SARS CoV2 RNA(COVID-19) Ceph NEGATIVE (Negative)
--- NOTE | 2025-01-03 00:37 | CT Scan Report ---
EXAM: CT head/brain wo con CLINICAL HISTORY: ams TECHNIQUE: Multiple axial images are obtained from the skull base to the vertex without contrast. CT scan was performed according to ALARA (as low as reasonable achievable). COMPARISON: None. FINDINGS: There is cerebral atrophy. No evidence of space occupying lesion, hemorrhage, edema, mass effect, midline shift, extra axial collection, or hydrocephalus is noted. Basal cisterns are symmetric and normal in size and configuration. There are scattered periventricular hypodensities as can be seen with chronic microvascular ischemic changes. The ratliff-white matter differentiation is preserved. Visualized paranasal sinuses and mastoid air cells are well aerated. Orbital contents are within normal limits. Bony structures are intact. IMPRESSION: 1. No evidence of acute intracranial abnormality is demonstrated. 2. Chronic microvascular ischemic changes. 3. Cerebral atrophy. Electronically signed by Kalen Reina 01-03-2025 12:36 AM
[2025-01-03] MEDS ORDERED: VANCOMYCIN CONSULT ACTIVE PRN (00:48)
[2025-01-03] MEDS: SODIUM CHLORIDE 0.9% 500 ML IV ONE (00:56)
[2025-01-03] MEDS: cefTRIAXone SODIUM 2,000 MG/50 ML BAG IV STA (00:57)
--- NOTE | 2025-01-03 01:24 | XRay Report ---
EXAM: XR ankle RT min 3V routine CLINICAL HISTORY: swelling TECHNIQUE: Radiograph of right ankle was acquired. 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 The talar dome is unremarkable. The ankle mortise is intact. The soft tissues appear unremarkable. IMPRESSION: 1. 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 Electronically signed by Kalen Reina 01-03-2025 01:22 AM
--- NOTE | 2025-01-03 01:25 | XRay Report ---
EXAM: XR foot RT min 3V routine CLINICAL HISTORY: swelling TECHNIQUE: Radiograph of right foot was acquired. COMPARISON: none FINDINGS: Fixation nail seen in distal fibula. There is no evidence of acute fracture, dislocation or osseous lesion. The sesamoid complex is well approximated. The joint spaces appear preserved. Tarsal bones are well aligned. The soft tissues are unremarkable. IMPRESSION: 1. No acute osseous or soft tissue abnormality in foot Electronically signed by Kalen Reina 01-03-2025 01:24 AM
--- NOTE | 2025-01-03 01:25 | XRay Report ---
EXAM: XR chest 1V portable CLINICAL HISTORY: Sepsis TECHNIQUE: Radiograph of chest was acquired. COMPARISON: 02/27/2023 02:07:58 ORDINARY SEAMAN FINDINGS: Prominent bilateral bronchovascular shadows. Bilateral perihilar congestion. Blunting of bilateral costophrenic angles. The cardiomediastinal silhouette is within normal limits. No acute osseous abnormality. IMPRESSION: 1. Prominent bilateral bronchovascular shadows. 2. Bilateral perihilar congestion. 3. Blunting of bilateral costophrenic angles- Small effusion vs soft tissue overlap. Suggested ultrasound correlation. 4. Compared with prior study all are new findings. Electronically signed by Kalen Reina 01-03-2025 01:25 AM
[2025-01-03] MEDS: VANCOMYCIN HCL 1,750 MG in SODIUM CHLORIDE 0.9% 500 ML IV ONE (01:39)
--- NOTE | 2025-01-03 01:50 | History & Physical Report ---
Date of Service January 03, 2025 Assessment & Plan (1) Fall: (2) Cellulitis of leg, right: (3) Right ankle sprain: Plan 1) Right ankle pain/erythema/edema - r. foot X-ray: no evidence of fracture or bony abnormality - Hx of r. ankle surgery w/ hardware of r. ankle - VSS upon admission, normal WBC count, procal WNL; no fevers, tachycardia, tachypnea - concerns for developing cellulitis upon ED arrival --> ceftriaxone, 2g, IV, once given and vancomycin ordered - MRSA nares pending - Cephalexin 2) Confusion/AMS ([id number]) - Alzheimer's at baseline, never oriented to more than self per pt's daughter - Hx of stroke(s), no focal neurological deficits per exam - CT-Head: 1) no acute intracranial abnormality, 2) cerebral atrophy, 3) chronic microvascular ischemic changes - UA: bacteruria (unclear if asymptomatic or not), Ur Cx pending - CXR: see above in Diagnostics Chronic conditions Alzheimer's disease and anxiety - continue the paroxetine and quetiapine Hypothyroidism - continue levothyroxine Paroxysmal SVT - atenolol Code status: DNR/DNI Disposition: Med-Surg FENGI: Regular VTE Prophylaxis: Lovenox, 40mg, subQ, daily History of Present Illness Chief Complaint: right ankle pain Primary Care Provider: Coni De La Fuente DO Patient is a 84 yo F w/ a PMHx of living in the memory care unit of [facility]. Patient's daughter received a call from [facility] stating that her gait, speech had changed. There was concern that the patient was exhibiting confusion, stroke-like symptoms, and altered mental status. Per daughter, at baseline patient is not normally oriented at all but does know her own name and does recognize her daughter as her daughter. Patient's daughter notes that the patient normally talks a lot, even if she doesn't make a lot of sense, but has been more silent than normal since she arrived at [facility] after being called. Patient is tender to palpation of the right ankle, draws away but is unable to provide a history of whether there was a trauma, misstep, or fall that precipitated it. Patient has trouble answering questions and only intermittently follows commands. Allergies Allergy/AdvReac Type Severity Reaction Status Date / Time mercury (elemental) Allergy Unknown Hives Verified 02/16/20 13:12 codeine AdvReac Unknown Gastrointestinal Verified 02/16/20 13:12 Upset Home Medications Medication Instructions Recorded Confirmed Type atenolol 25 mg tablet 12.5 mg PO QAM 01/13/20 01/03/25 History cholecalciferol (vitamin D3) 25 2,000 unit PO QAM #60 caps 01/15/20 01/03/25 Rx mcg (1,000 unit) capsule acetaminophen 500 mg tablet 1,000 mg PO Q8 PRN Fever Or Pain 01/03/25 01/03/25 History (Tylenol Extra Strength) lactase 3,000 unit tablet (Lactaid) 3,000 unit PO AC PRN meal or snack 01/03/25 01/03/25 History heavy in dairy levothyroxine 100 mcg tablet 100 mcg PO DAILY 01/03/25 01/03/25 History melatonin 5 mg tablet 5 mg PO HS 01/03/25 01/03/25 History multivitamin with minerals 1 tab PO QAM 01/03/25 01/03/25 History (Multiple Vitamin-Minerals tablet) naproxen sodium 220 mg tablet 440 mg PO Q12H PRN chronic 01/03/25 01/03/25 History osteoarthritis paroxetine HCl 40 mg tablet 40 mg PO QPM 01/03/25 01/03/25 History pramoxine 1 % lotion (Sarna 1 applic topical QS 01/03/25 01/03/25 History Sensitive) quetiapine 100 mg tablet (Seroquel) 100 mg PO HS 01/03/25 01/03/25 History Past Med/Surg History Problem List (Updated 01/03/25 @ 11:50 by Umang Feliz DO) Delirium superimposed on dementia Right ankle sprain Cellulitis of leg, right (Acute) Acute alteration in mental status (Acute) Fall (Acute) Laceration of lip (Acute) Knee pain, left (Acute) Acute UTI (Acute) Dementia (Acute) Lumbar compression fracture (Chronic) Spinal stenosis of lumbar region (Chronic) Paroxysmal SVT (supraventricular tachycardia) (Chronic) Cognitive impairment (Chronic) Corneal abrasion (Acute) Fall (Acute) Left wrist fracture (Acute) Progressive dementia with uncertain etiology Urethral caruncle (Acute) Stroke syndrome (Chronic) Osteoporosis (Chronic) Numbness (Chronic) Lacunar infarction (Chronic) Dementia (Chronic) Medical History (Updated 01/03/25 @ 11:50 by Umang Feliz DO) Chest pain Chest pain Stroke listed on past problem list/ pts daughter states it was Not stroke/ just symptoms associated with the SVT which has now been corrected with ablation Hearing deficit Osteoporosis Spinal stenosis History of anesthesia reaction very confused with anesthesia Osteoarthritis Chronic back pain Hypothyroidism Anxiety Alzheimer disease "probable" poor historian Surgical History History of colonoscopy History of hysterectomy H/O cardiac radiofrequency ablation 2015/ sue/ sees Dr. Gomez/ had for "irregular heartbeat" no more issues with it History of tonsillectomy History of thyroidectomy History of ankle surgery pt unsure which side Family History Father Coronary heart disease Cardiac disorder Hypertension Mother Diabetes Lymphoma Heart problem Social History Smoking Status: Unknown if ever smoked Second Hand Exposure: No; Do You Dip or Chew Tobacco: No; Hx Alcohol Use: No Hx Substance Use: No Preferred Language: Mongolian Communication Ability: Impaired Medical Collector Required: No Beliefs That Will Affect Care: None Current Living Situation: Shelter Current Living Situation Comment: [facility] Other Information That Helps Us Care for You: No Feels Safe at Home: Yes Safety Concerns: Feels Safe At This Time Assistive Devices: Cane and Glasses Review of Systems Review of Systems: Unobtainable due to cognitive status Physical Exam Constitutional: WD/WN, vitals as above Respiratory: normal respiratory effort, lungs clear to auscultation Cardiovascular: RRR, no murmur, no edema Skin: + erythema (over lateral malleolus or r. ankle) Neurologic: normal touch/pain/proprioception, moves all extremities and awake; no focal motor deficits Cranial Nerves: PERRL, normal accommodation, EOM intact bilaterally, normal facial strength, tongue midline and no nystagmus Psychiatric: Orientation: alert (intermittently), oriented to person, oriented to place and cooperative (intermittently); + not oriented to time Results & Data Results & Data Vital Signs (Past 12 Hours) Vital Signs Temp Pulse Pulse Resp BP BP Pulse Ox 01/03/25 01:30 107/50 L 01/03/25 01:30 71 23 01/03/25 01:24 68 94 01/03/25 01:06 77 15 95 01/03/25 01:01 120/59 L 01/03/25 01:01 120/59 L 01/03/25 00:54 73 94 01/03/25 00:51 69 18 95 01/03/25 00:30 134/67 01/03/25 00:20 94 01/03/25 00:18 63 26 H 93 01/03/25 00:00 123/71 01/03/25 00:00 123/71 01/02/25 23:57 67 16 93 01/02/25 23:53 137/87 01/02/25 23:48 69 14 95 01/02/25 23:40 78 01/02/25 23:31 67 14 96 01/02/25 23:16 68 16 124/62 94 01/02/25 23:16 95 01/02/25 23:16 36.7 C 66 20 124/62 93 O2 Del Method O2 Flow Rate 01/03/25 01:30 01/03/25 01:30 01/03/25 01:24 01/03/25 01:06 01/03/25 01:01 01/03/25 01:01 01/03/25 00:54 01/03/25 00:51 01/03/25 00:30 01/03/25 00:20 Room Air 01/03/25 00:18 01/03/25 00:00 01/03/25 00:00 01/02/25 23:57 01/02/25 23:53 01/02/25 23:48 01/02/25 23:40 01/02/25 23:31 Room Air 01/02/25 23:16 Room Air 01/02/25 23:16 Room Air 0 01/02/25 23:16 Room Air Diagnostic Findings Ankle X-Ray 01/02/25 23:31 EXAM: XR ankle RT min 3V routine CLINICAL HISTORY: swelling TECHNIQUE: Radiograph of right ankle was acquired. 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 The talar dome is unremarkable. The ankle mortise is intact. The soft tissues appear unremarkable. IMPRESSION: 1. 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 Electronically signed by Kalen Reina 01-03-2025 01:22 AM Chest X-Ray 01/02/25 23:31 EXAM: XR chest 1V portable CLINICAL HISTORY: Sepsis TECHNIQUE: Radiograph of chest was acquired. COMPARISON: 02/27/2023 02:07:58 COMPUTER SCIENCE INTERN FINDINGS: Prominent bilateral bronchovascular shadows. Bilateral perihilar congestion. Blunting of bilateral costophrenic angles. The cardiomediastinal silhouette is within normal limits. No acute osseous abnormality. IMPRESSION: 1. Prominent bilateral bronchovascular shadows. 2. Bilateral perihilar congestion. 3. Blunting of bilateral costophrenic angles- Small effusion vs soft tissue overlap. Suggested ultrasound correlation. 4. Compared with prior study all are new findings. Electronically signed by Kalen Reina 01-03-2025 01:25 AM Foot X-Ray 01/02/25 23:31 EXAM: XR foot RT min 3V routine CLINICAL HISTORY: swelling TECHNIQUE: Radiograph of right foot was acquired. COMPARISON: none FINDINGS: Fixation nail seen in distal fibula. There is no evidence of acute fracture, dislocation or osseous lesion. The sesamoid complex is well approximated. The joint spaces appear preserved. Tarsal bones are well aligned. The soft tissues are unremarkable. IMPRESSION: 1. No acute osseous or soft tissue abnormality in foot Electronically signed by Kalen Reina 01-03-2025 01:[address] 01/02/25 23:32 EXAM: CT head/brain wo con CLINICAL HISTORY: ams TECHNIQUE: Multiple axial images are obtained from the skull base to the vertex without contrast. CT scan was performed according to ALARA (as low as reasonable achievable). COMPARISON: None. FINDINGS: There is cerebral atrophy. No evidence of space occupying lesion, hemorrhage, edema, mass effect, midline shift, extra axial collection, or hydrocephalus is noted. Basal cisterns are symmetric and normal in size and configuration. There are scattered periventricular hypodensities as can be seen with chronic microvascular ischemic changes. The ratliff-white matter differentiation is preserved. Visualized paranasal sinuses and mastoid air cells are well aerated. Orbital contents are within normal limits. Bony structures are intact. IMPRESSION: 1. No evidence of acute intracranial abnormality is demonstrated. 2. Chronic microvascular ischemic changes. 3. Cerebral atrophy. Electronically signed by Kalen Reina 01-03-2025 12:36 AM Supervising Physician Co-Signing Physician Notes patient seen examined, chart reviewed, case discussed with Dr. Barnhart and agree with assessment plan as document above. In brief, patient is an 84-year-old female with history of dementia, anxiety, hypothyroidism presenting with right lateral ankle swelling and erythema. Unknown if she had fallen or not. No reported fever/chills Patient is unable to provide history due to underlying dementia On physical exam patient is sleepy, arousable and oriented to self Dry mucous membranes, neck supple + S1, S2, regular Lungs CTA anteriorly Abdomen soft, nontender Extremities with warmth, redness and tenderness of the right ankle. Some area of bruising near the lateral malleolus and on the dorsum of the foot. Does not appear to be cellulitic Labs and images reviewed Hardware in place at right ankle due to prior malleolus fracture. No obvious evidence of infection or bony abnormality on x-ray Assessment/plan Continue pain control Continue [place] for now Anticipate discharge tomorrow (1) Fall Encounter type: initial encounter Qualified Code(s): W19.XXXA - Unspecified fall, initial encounter
[2025-01-03] MEDS ORDERED: MELATONIN 3 MG TAB PO PRN (02:33)
[2025-01-03] MEDS ORDERED: POLYETHYLENE (MIRALAX) 17 GM PACK PO PRN (02:33)
[2025-01-03] MEDS ORDERED: LACTASE 3000 UNIT TAB PO PRN (04:37)
[2025-01-03 05:20] VITALS: TEMP 98.2
[2025-01-03] MEDS ORDERED: Nursing to Pharmacy Communication SCH (06:00)
[2025-01-03] MEDS: LEVOTHYROXINE SODIUM 100 MCG TABLET PO SCH (06:04)
--- NOTE | 2025-01-03 07:12 | Electrocardiogram Report ---
Test Reason : Blood Pressure : */* mmHG Vent. Rate : 74 BPM Atrial Rate : * BPM P-R Int : * ms QRS Dur : 88 ms QT Int : 408 ms P-R-T Axes : * 6 17 degrees QTcB Int : 452 ms Sinus rhythm with PVC Poor R wave progression, consider anterior MN vs. lead placement vs. LVH Abnormal ECG When compared with ECG of 01-Mar-2023 22:55, Nonspecific T wave abnormality now evident in Inferior leads Confirmed by Eze Krause ([id number]) on 01/03/2025 7:12:18 AM Referred By: REFERRED SELF Confirmed By: Eze Krause
--- NOTE | 2025-01-03 08:14 | Hospitalist Progress Note ---
Date of Service January 03, 2025 Assessment & Plan (1) Fall: (2) Delirium superimposed on dementia: (3) Cellulitis of leg, right: (4) Right ankle sprain: Plan Right ankle pain/swelling/erythema Likely due to fall at facility, unwitnessed; likely 2/2 weakness and delirium on bam - R. foot X-ray: no evidence of fracture or bony abnormality - Hx of r. ankle surgery w/ hardware of r. 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 - VSS upon admission, normal WBC count, procal WNL; no fevers, tachycardia, tachypnea - concerns for developing cellulitis upon ED arrival --> ceftriaxone, 2g, IV, once given and vancomycin ordered - MRSA nares pending - Cephalexin Delirium on Dementia - Alzheimer's at baseline, baseline oriented to self but not much else - Hx of stroke(s), no focal neurological deficits per exam - CT-Head: 1) no acute intracranial abnormality, 2) cerebral atrophy, 3) chronic microvascular ischemic changes - UA: bacteruria (unclear if asymptomatic or not), UCx pending - CXR: see above in Diagnostics Chronic conditions Alzheimer's disease and anxiety - continue the paroxetine and quetiapine Hypothyroidism - continue levothyroxine Paroxysmal SVT - atenolol Code status: DNR/DNI Disposition: Med-Surg FENGI: Regular VTE Prophylaxis: Lovenox, 40mg, subQ, daily Admission and Anticipated Discharge Date Admission Date: January 03, 2025 Joana Pope was seen and evaluated at bedside in ER, daughter Ruthy present. Patient sleeping but aroused to room light and voice. Daughter notes she is oriented to self at baseline, but is currently functioning lower than she previously has. Typically able to feed herself and use bathroom on her own, but currently requires assistance for these. Daughter wondering if there's a more suitable place for her to live compared to the [facility] unit of [facility]. Results & Data Results & Data Vital Signs (Past 12 Hours) Vital Signs Temp Pulse Pulse Resp BP BP Pulse Ox 01/03/25 07:03 70 01/03/25 06:30 65 12 95 01/03/25 06:30 138/69 01/03/25 06:30 138/69 01/03/25 06:30 138/69 01/03/25 06:18 16 91 01/03/25 06:15 135/75 01/03/25 05:46 142/77 H 01/03/25 05:42 67 21 93 01/03/25 05:30 67 20 94 01/03/25 05:30 125/74 01/03/25 05:15 66 13 92 01/03/25 05:15 120/88 01/03/25 05:15 120/88 01/03/25 05:09 77 92 01/03/25 05:09 36.8 C 68 18 150/74 H 92 01/03/25 04:45 117/69 01/03/25 04:45 117/69 01/03/25 04:33 67 13 91 01/03/25 04:30 68 15 95 01/03/25 04:30 141/82 H 01/03/25 04:30 141/82 H 01/03/25 04:30 141/82 H 01/03/25 04:30 141/82 H 01/03/25 04:30 141/82 H 01/03/25 04:06 67 97 01/03/25 04:01 120/57 L 01/03/25 04:01 120/57 L 97 01/03/25 03:51 73 12 01/03/25 03:48 70 12 89 L 01/03/25 03:45 99/50 L 01/03/25 03:45 99/50 L 01/03/25 03:45 99/50 L 01/03/25 03:45 99/50 L 01/03/25 03:42 74 11 L 91 01/03/25 03:37 73 01/03/25 03:30 71 12 99/50 L 90 01/03/25 03:15 104/53 L 01/03/25 03:15 104/53 L 01/03/25 03:15 104/53 L 94 01/03/25 03:15 104/53 L 01/03/25 03:15 104/53 L 01/03/25 03:15 72 13 01/03/25 03:03 88 15 94 01/03/25 03:00 92/52 L 01/03/25 02:45 90/39 L 01/03/25 02:36 70 14 93 01/03/25 02:30 74 12 93 01/03/25 02:30 99/50 L 01/03/25 02:30 99/50 L 01/03/25 02:30 72 01/03/25 02:15 67 14 94 01/03/25 02:15 99/55 L 01/03/25 02:15 99/55 L 01/03/25 02:15 99/55 L 01/03/25 02:00 72 24 93 01/03/25 02:00 122/48 L 01/03/25 02:00 122/48 L 01/03/25 02:00 122/48 L 01/03/25 02:00 122/48 L 01/03/25 02:00 122/48 L 01/03/25 01:54 85 13 82 L 01/03/25 01:30 107/50 L 01/03/25 01:30 71 23 01/03/25 01:24 68 94 01/03/25 01:06 77 15 95 01/03/25 01:01 120/59 L 01/03/25 01:01 120/59 L 01/03/25 00:54 73 94 01/03/25 00:51 69 18 95 01/03/25 00:30 134/67 01/03/25 00:20 94 01/03/25 00:18 63 26 H 93 01/03/25 00:00 123/71 01/03/25 00:00 123/71 01/02/25 23:57 67 16 93 01/02/25 23:53 137/87 01/02/25 23:48 69 14 95 01/02/25 23:40 78 01/02/25 23:31 67 14 96 01/02/25 23:16 68 16 124/62 94 01/02/25 23:16 95 01/02/25 23:16 36.7 C 66 20 124/62 93 O2 Del Method O2 Flow Rate 01/03/25 07:03 01/03/25 06:30 01/03/25 06:30 01/03/25 06:30 01/03/25 06:30 01/03/25 06:18 01/03/25 06:15 01/03/25 05:46 01/03/25 05:42 01/03/25 05:30 01/03/25 05:30 01/03/25 05:15 01/03/25 05:15 01/03/25 05:15 01/03/25 05:09 01/03/25 05:09 Room Air 01/03/25 04:45 01/03/25 04:45 01/03/25 04:33 01/03/25 04:30 01/03/25 04:30 01/03/25 04:30 01/03/25 04:30 01/03/25 04:30 01/03/25 04:30 01/03/25 04:06 01/03/25 04:01 01/03/25 04:01 01/03/25 03:51 01/03/25 03:48 01/03/25 03:45 01/03/25 03:45 01/03/25 03:45 01/03/25 03:45 01/03/25 03:42 01/03/25 03:37 01/03/25 03:30 01/03/25 03:15 01/03/25 03:15 01/03/25 03:15 01/03/25 03:15 01/03/25 03:15 01/03/25 03:15 01/03/25 03:03 01/03/25 03:00 01/03/25 02:45 01/03/25 02:36 01/03/25 02:30 01/03/25 02:30 01/03/25 02:30 01/03/25 02:30 01/03/25 02:15 01/03/25 02:15 01/03/25 02:15 01/03/25 02:15 01/03/25 02:00 01/03/25 02:00 01/03/25 02:00 01/03/25 02:00 01/03/25 02:00 01/03/25 02:00 01/03/25 01:54 01/03/25 01:30 01/03/25 01:30 01/03/25 01:24 01/03/25 01:06 01/03/25 01:01 01/03/25 01:01 01/03/25 00:54 01/03/25 00:51 01/03/25 00:30 01/03/25 00:20 Room Air 01/03/25 00:18 01/03/25 00:00 01/03/25 00:00 01/02/25 23:57 01/02/25 23:53 01/02/25 23:48 01/02/25 23:40 01/02/25 23:31 Room Air 01/02/25 23:16 Room Air 01/02/25 23:16 Room Air 0 01/02/25 23:16 Room Air (1) Fall Encounter type: initial encounter Qualified Code(s): W19.XXXA - Unspecified fall, initial encounter (4) Right ankle sprain Encounter type: initial encounter
[2025-01-03 08:40] VITALS: BP 158/78; PULSE 76; RESP 18; O2SAT 96
[2025-01-03] MEDS: CEROVITE ADV FORMULA TAB PO SCH (08:40)
[2025-01-03] MEDS: ATENOLOL 25 MG TABLET PO SCH (08:40)
[2025-01-03] MEDS: ENOXAPARIN INJ 40 MG/0.4 ML SYR SQ SCH (08:40)
[2025-01-03] MEDS: ACETAMINOPHEN 325 MG TAB PO PRN (08:45)
[2025-01-03] MEDS ORDERED: cephALEXin 500 MG CAP PO SCH ×2 (09:00→17:00)
[2025-01-03] MEDS: PRAMOXINE 1% TOP SCH (09:21)
--- NOTE | 2025-01-03 12:19 | Pharmacy Report ---
Pharmacy PK ABX Note - Date of Service January 03, 2025 - Assessment and Plan Assessment 84 year old F receiving Vancomycin and Cephalexin for treatment of right ankle cellulitis. * Day #1 of antimicrobial therapy. * Afebrile. No updated labs today. Labs from last night reviewed. No le ukocytosis, renal fxn stable, procal/lactate normal. * MRSA swab negative. Flu/covid/RSV negative. Blood and urine cultures pending. Plan Vancomycin * Loading dose: 1750 mg IV x 1 * Maintenance dose: 1000 mg IV every 24 hours * Regimen is predicted to achieve target AUC/YVES of 400-600 mg/L.hr * Random level ordered for: 01/05/25 Cephalexin * 500 mg PO QID Pharmacy will continue to follow and will adjust dose/frequency as necessary. Thank you. Pharmacy has transitioned to AUC monitoring for vancomycin. AUC/YVES is the preferred PK/PD target and is associated with decreased risk of nephrotoxicity compared to traditional trough targets.
--- NOTE | 2025-01-03 14:48 | Discharge Summary ---
Date of Service January 03, 2025 Admission HPI Per Admitting Provider Patient is a 84 yo F w/ a PMHx of living in the memory care unit of [facility]. Patient's daughter received a call from [facility] stating that her gait, speech had changed. There was concern that the patient was exhibiting confusion, stroke-like symptoms, and altered mental status. Per daughter, at baseline patient is not normally oriented at all but does know her own name and does recognize her daughter as her daughter. Patient's daughter notes that the patient normally talks a lot, even if she doesn't make a lot of sense, but has been more silent than normal since she arrived at [facility] after being called. Patient is tender to palpation of the right ankle, draws away but is unable to provide a history of whether there was a trauma, misstep, or fall that precipitated it. Patient has trouble answering questions and only intermittently follows commands. Admission Exam Per Admitting Provider Constitutional: WD/WN, vitals as above Respiratory: normal respiratory effort, lungs clear to auscultation Cardiovascular: RRR, no murmur, no edema Skin: + erythema (over lateral malleolus or r. ankle) Neurologic: normal touch/pain/proprioception, moves all extremities and awake; no focal motor deficits Cranial Nerves: PERRL, normal accommodation, EOM intact bilaterally, normal facial strength, tongue midline and no nystagmus Psychiatric: Orientation: alert (intermittently), oriented to person, oriented to place and cooperative (intermittently); + not oriented to time Principal Diagnosis R ankle sprain 2/2 fall; delirium on dementia Discharge Exam Gen: awake, intermittently alert, only oriented to name; in no acute distress HEENT: EOM intact, anicteric sclerae, mildly dry oral mucus membranes CV: RRR, no m/r/g Resp: clear to auscultation b/l, no respiratory distress, no w/r/R GI/Abd: soft, +BS, nontender to palpation MSK: RLE- area of erythema, swelling, and apparent tenderness to palpation centered around and superior to lateral malleolus Neuro: no facial droop, speech intermittent but intact. Able to move all extremities with prompting Discharge Data Allergies Allergy/AdvReac Type Severity Reaction Status Date / Time mercury (elemental) Allergy Unknown Hives Verified 02/16/20 13:12 codeine AdvReac Unknown Gastrointestinal Verified 02/16/20 13:12 Upset Consultations 01/03/25 01:26 ED Decision to Admit Stat Ordered Studies 01/02/25 23:32 CT head/brain wo con Stat Hospital Course (1) Fall: (2) Delirium superimposed on dementia: (3) Cellulitis of leg, right: (4) Right ankle sprain: Xiang Pope is a 84 yo F w/ a PMHx of moderate dementia, anxiety, hypothyroidism, and paroxysmal SVT who was brought to the ED from memory care unit at [facility] for altered mental status, gait and speech change, and stroke-like symptoms. It was found that her R lateral ankle was erythematous and swollen, suspected that she had fallen at [facility]. In the ED she was only oriented to self but unable to use bathroom or ear on her own, which daughter Ruthy said was below her baseline. Thus due to acute mental status change she was admitted for further evaluation, monitoring, and treatment. Right ankle pain/swelling/erythema Likely due to fall at facility, unwitnessed; likely 2/2 weakness due to dehydration and delirium on dementia - R. foot X-ray: no evidence of fracture or bony abnormality - Hx of r. ankle surgery w/ hardware of r. 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 - VSS upon admission, normal WBC count, procal WNL; no fevers, tachycardia, tachypnea - concerns for developing cellulitis upon ED arrival --> ceftriaxone 2g IV, once given, vancomycin given Dehydration As evidenced by >20:1 BUN:Cr on BMP Likely contributor to delirium on dementia - advised facility to have daily fluid goal of 60oz Delirium on Dementia - Alzheimer's at baseline, baseline oriented to self but not much else - Hx of stroke(s), no focal neurological deficits per exam - CT-Head: 1) no acute intracranial abnormality, 2) cerebral atrophy, 3) chronic microvascular ischemic changes - UA: bacteruria (unclear if asymptomatic or not), UCx pending - CXR: see above in Diagnostics Chronic conditions Alzheimer's disease and anxiety - continue the paroxetine and quetiapine Hypothyroidism - continue levothyroxine Paroxysmal SVT - atenolol Code status: DNR/DNI Disposition: Med-Surg FENGI: Regular VTE Prophylaxis: Lovenox, 40mg, subQ, daily Total Time Total Time Spent Total Time Spent (In Minutes): 30 Discharge Plan Discharge Items Patient Disposition: Personal [facility] Reason For Visit: R ANKLE PAIN Discharge Diagnosis: ankle sprain, delirium superimposed on dementia due to dehydration Condition on Discharge: Good Activity: Resume your previous activity Non-emergency contact: Primary Care Provider Call non-emergency contact if: you have any medication questions and your symptoms worsen Follow-up/Referrals: Coni De La Fuente DO [Primary Care Provider] - Diet: Regular Addtl Attending Provider Instructions: Delirium - the confusion/altered mental status was quite consistent with delirium. most commonly this is caused by dehydration, and this appears to be the case in her situation. when we age, the hormones that make us feel thirsty frequently fade - when you combine this with dementia making it impossible to think "i haven't drank enough today", dehydration causing delirium when someone has dementia is exceedingly common. while she might also have a UTI, this is less clear - she certainly hasn't shown any overt infectious signs or symptoms - but, of course, with the dementia it's also impossible to rule out mild pain/burning/etc. because of this (not likely a UTI, but a little hard to rule out) - we'll hold off on further antibiotics for now, follow her urine culture, and treat if it shows a dominant growth of bacteria. Please (as best as possible, understanding of course that it's a bit of an uphill louie) try to have her drink 60 ounces of fluid daily Her ankle symptoms look and examine as a sprain - no fractures were seen on xray (or suspected on exam), and fortunately she can bear weight. ice for comfort, compression and elevation as she'll allow to help manage the swelling, and assume it will probably take 1-4 weeks to heal, but requires no specific restrictions Pending Studies at Discharge: Yes (urine culture pending) Stand-Alone Forms: My 8[employer], Smoking Cessation Skilled Items Patient informed of condition?: Yes DNR: Yes Discharge Level of Care: Other Communicable Disease: No Discharge Prognosis: Stable Lines: None Urinary Catheter: No Medications and DC Order Prescriptions: Continued atenolol 25 mg tablet 12.5 mg PO QAM cholecalciferol (vitamin D3) 25 mcg (1,000 unit) Capsule 2,000 unit PO QAM Qty: 60 2RF levothyroxine 100 mcg Tablet 100 mcg PO DAILY Multiple Vitamin-Minerals Tablet 1 tab PO QAM melatonin 5 mg Tablet 5 mg PO HS naproxen sodium 220 mg Tablet 440 mg PO Q12H PRN (Reason: chronic osteoarthritis) Rx Instructions: 2 tablet dose lactase [Lactaid] 3,000 unit Tablet 3,000 unit PO AC PRN (Reason: meal or snack heavy in dairy) Rx Instructions: administer with meals and/or snacks pramoxine [Sarna Sensitive] 1 % Lotion 1 applic TOPICAL QS Rx Instructions: apply to all 4 extremities/trunk every shift for dermatitis paroxetine HCl 40 mg Tablet 40 mg PO QPM quetiapine [Seroquel] 100 mg Tablet 100 mg PO HS acetaminophen [Tylenol Extra Strength] 500 mg Tablet 1,000 mg PO Q8 PRN (Reason: Fever Or Pain) Discharge Orders: Discharge Order (Routine); Ordered 01/03/25 Ordered By: Tomasz Joy Admission Data Admit Date/Time: 01/03/25 02:34 Attending Provider: Tomasz Joy Admit Provider: Eze Barnhart Primary Care Provider: Coni De La Fuente Other Providers: Kamila Melchor Other Interventions: Discharge Summary Assessment (RN) Last Done: 01/03/25 13:08 Supervising Physician Co-Signing Physician Notes I personally examined the patient and verified all seymour points of history and exam, discussed case, and agree with decision making with Dr Feliz no meaningful HPI review of systems obtainable from patient. Patient seen several times throughout the dayfirst discussed with daughter, later with son-in-law. Vitals noted, in general she is awake disoriented pleasant no distress. She is able to bear weight as she walks to the bathroom. Breathing unlabored no accessory muscle use good effort. Right ankle with tenderness at lateral talofibular ligament but no step-off or divot, mild ankle swelling, mild tenderness laterally but no joint effusion, mild bruising posterior calf. Labs and diagnostics noted. Delirium superimposed on dementiawith high specific gravity on urinalysis as well as BUN to creatinine greater than 20-1, as well as dementia frequently leading to dehydration from poor p.o. intakesuspect dehydration as main mechanism for delirium. She is really not able to give a history at all, and while there is no concern for sepsis/etc., it is possible that she also has a UTIdoubtful, and while it may represent asymptomatic bacteriuria if anything grows on culture, in her situation will follow culture and start a course of a ntibiotics for cystitis if the culture grows medical claims representative pathogen. That said, safe/stable for return to her home environmentafter discussion with family, we agreed that given that the delirium was most likely due to dehydration and that could be remedied with encouraging p.o. intake, and if she has a UTI at simple cystitis aloneshe would probably do better returning to a familiar environment and risking worsening delirium from the hospital environment ankle sprainafter further review of her ankle swelling and redness was entirely consistent with a sprain and not at all consistent with cellulitis. She is able to bear weight, x-rays do not show fracture. No specific management required at this pointwatchful waiting. otherwise as above Resident Activity Tracking Resident Involvement: Resident Care Provided Care Provided: Adult Hospital Medicine
[2025-01-03] MEDS ORDERED: EUCERIN CR 120 GM JAR EXT SCH (16:00)
--- NOTE | 2025-01-03 17:32 | Billing Data ---
Date of Service January 03, 2025 Coding Level of Care Code 95741 IN/OBS DISCH 30 MIN/LESS
[2025-01-03] MEDS ORDERED: QUEtiapine FUMARATE 100 MG TABLET PO SCH (21:00)
[2025-01-03] MEDS ORDERED: PARoxetine HCL 20 MG TAB PO SCH (21:00)
[2025-01-03] MEDS ORDERED: MELATONIN 3 MG TAB PO SCH (21:00)
[2025-01-03] MEDS ORDERED: VANCOMYCIN HCL 1,000 MG/270 ML BAG IV SCH (22:00)
--- NOTE | 2025-01-04 00:09 | Billing Data ---
Date of Service January 03, 2025 Coding Level of Care Code 88731 INT INP/OBS CARE
== END 2025-01-03 16:05 | disposition home or self-care (01) ==
LOC: ED 23:22 → 2N 23:22 → EDINP 23:22 → SUATTDRO 01-03 02:34 → 3W 01-03 04:37